=== PATIENT | female | born 1970 | race American Indian/Alaskan Native ===

== ENCOUNTER 2017-04-26 13:44 | Inpatient (IN) | payer MEDICARE, OTHER ==
[2017-04-26] MEDS ORDERED: Morphine 2 mg/ml ISec IVP STA (14:16)
[2017-04-26] MEDS ORDERED: Sodium Chloride 0.9% 1,000 ML IV STA (14:16)
--- NOTE | 2017-04-26 14:22 | ED PDOC ---
Arrival/HPI - General Historian: Patient EM Caveat: Uncooperative <Dariel Kuhn - Last Filed: 04/26/17 14:25> <Jason Nunes - Last Filed: 04/26/17 17:49> - General Chief Complaint: Abdominal Pain Time Seen by Provider: 04/26/17 13:51 - History of Present Illness Narrative History of Present Illness (Text): 04/26/17 14:19 This is a 47 year old male with PMHx Diabetes, H. pylori infections who presents complaining of intractable vomiting and chest pain. Patient states that both complaints started this morning. Patient has been vomiting yellowish green fluid. No blood in the vomit. Patient complaining of substernal chest pain without radiation. No radiation of pain. At this point, patient has refused to answer further questions. When the attending went to examine her, she admitted no further medical history and takes Janumet and Metformin at home. (Dariel Kuhn) Past Medical History - Provider Review Nursing Documentation Reviewed: Yes - Infectious Disease Hx of Infectious Diseases: None - Reproductive Menopause: Yes - Endocrine/Metabolic Hx Diabetes Mellitus Type 2: Yes - Musculoskeletal/Rheumatological Hx Musculoskeletal Disorders: No - Psychiatric Hx Substance Use: Yes - Anesthesia Hx Anesthesia: No <Dariel Kuhn - Last Filed: 04/26/17 14:25> Family/Social History - Physician Review Nursing Documentation Reviewed: Yes Family/Social History: Unknown Family HX Smoking Status: Unknown If Ever Smoked Hx Alcohol Use: Yes Frequency of alcohol use: Socially Hx Substance Use: Yes Substance used: weed <Dariel Kuhn - Last Filed: 04/26/17 14:25> Allergies/Home Meds <Dariel Kuhn - Last Filed: 04/26/17 14:25> <Jason Nunes - Last Filed: 04/26/17 17:49> Allergies/Adverse Reactions: Allergies No Known Allergies Allergy (Verified 04/26/17 13:58) Home Medications: Home Meds Medication Instructions Recorded Confirmed Sitagliptin Phos/Metformin HCl 1 each PO BID 04/26/17 04/26/17 [Janumet 50-1,000 mg Tablet] Review of Systems - Review of Systems Systems not reviewed;Unavailable: Uncooperative <Dariel Kuhn - Last Filed: 04/26/17 14:25> Physical Exam - Physical Exam Physical Exam Limitations: Uncooperative (refuses physical exam, but attending noted epigastric tenderness) Vital Signs Reviewed: Yes Temperature: Afebrile Blood Pressure: Normal Pulse: Regular Respiratory Rate: Normal Appearance: Positive for: Uncomfortable Pain Distress: Severe Mental Status: Positive for: Alert and Oriented X 3, Agitated <HattieWilfredkacie Mercedes - Last Filed: 04/26/17 14:25> Medical Decision Making <Dariel Kuhn - Last Filed: 04/26/17 14:25> <Jason Nunes - Last Filed: 04/26/17 17:49> ED Course and Treatment: 04/26/17 14:23 CBC, CMP, Amylase, Lipase, VBG w/ lactate Pepcid 20 mg IV Zofran 4 mg IV Morphine [address] abdomen/pelvis with IV contrast only (Dariel Kuhn) A 47 year old female with chest pain and non-bloody vomiting. In agreement with resident note, which includes further HPI details. Patient was seen and evaluated with resident, came up with plan and treatment together. 04/26/17 17:47 Patient with noted history; she is a poor historian and has been noncooperative , such as throwing a bed nelson with stool and urine onto the floor. Patient given antiemetic and fluids but still vomiting and will need further observation for intractable vomiting. Additionally, her CT a/p is showing a bladder lesion that may be a possible neoplasm - so she will need urologic workup for that. Case discussed with on-call physician, Dr. Aleman - will place on his service. (Jason Nunes) - Lab Interpretations Lab Results: 04/26/17 15:25 04/26/17 15:25 Lab Results 04/26/17 16:15: Urine Opiates Screen Negative, Urine Methadone Screen Negative, Ur Barbiturates Screen Negative, Ur Phencyclidine Scrn Negative, Ur Amphetamines Screen Negative, U Benzodiazepines Scrn Negative, U Oth Cocaine Metabols Negative, U Cannabinoids Screen Positive H 04/26/17 15:25: Sodium 140, Chloride 102, Potassium 3.8, Carbon Dioxide 27, Anion Gap 15, BUN 15, Creatinine 0.6, Est GFR ( Amer) > 60, Est GFR (Non- Af Amer) > 60, Random Glucose 280 H, Calcium 10.1, Total Bilirubin 0.6, AST 28, ALT 31, Alkaline Phosphatase 128, Total Protein 8.7 H, Albumin 4.7, Globulin 4.0 , Albumin/Globulin Ratio 1.2, Amylase 79, Lipase 205 04/26/17 15:25: WBC 7.9, RBC 4.79, Hgb 14.3, Hct 40.1, MCV 83.7, MCH 29.9, MCHC 35.7, RDW 12.8, Plt Count 238, MPV 10.2, Gran % 71.6 H, Lymph % (Auto) 20.3 L, Yell % (Auto) 5.9, Eos % (Auto) 2.1, Baso % (Auto) 0.1, Gran # 5.68, Lymph # 1.6 , Yell # 0.5, Eos # 0.2, Baso # 0.01 04/26/17 15:25: pO2 97 H, VBG pH 7.39, VBG pCO2 47.0, VBG HCO3 28.5 H, VBG Total CO2 29.9 H, VBG O2 Sat (Calc) 98.4 H, VBG Base Excess 2.8 H, VBG Potassium 6.0 H, Sodium 129.0 L, Chloride 102.0, Glucose 292 H, Lactate 1.7, FiO2 21.0, Venous Blood Potassium 6.0 H 04/26/17 14:43: Urine Color Light red, Urine Appearance Sl cloudy, Urine pH 7.0 , Ur Specific [place] 1.020, Urine Protein 100 H, Urine Glucose (UA) >=1000, Urine Ketones Negative, Urine Blood Large H, Urine Nitrate Negative, Urine Bilirubin Negative, Urine Urobilinogen 0.2, Ur Leukocyte Esterase Negative, Urine RBC Tntc, Urine WBC 0 - 2, Ur Epithelial Cells 0 - 2 - RAD Interpretation Radiology Orders: 04/26/17 14:18 ABD & PELVIS IV CONTRAST ONLY [CT] Stat - Medication Orders Current Medication Orders: Discontinued Medications Famotidine (Pepcid) 20 mg IVP STAT STA Stop: 04/26/17 14:17 Last Admin: 04/26/17 16:07 Dose: 20 mg Sodium Chloride (Sodium Chloride 0.9%) 1,000 mls @ 999 mls/hr IV .Q1H1M STA Stop: 04/26/17 15:16 Last Admin: 04/26/17 16:11 Dose: 999 mls/hr Iohexol (Omnipaque 350 100 Ml) Confirm Administered Dose 350 mg .ROUTE .STK-MED ONE Stop: 04/26/17 17:07 Metoclopramide HCl (Reglan) 10 mg IVP STAT STA Stop: 04/26/17 17:33 Morphine Sulfate (Morphine) 2 mg IVP STAT STA Stop: 04/26/17 14:17 Last Admin: 04/26/17 16:07 Dose: 2 mg Ondansetron HCl (Zofran Inj) 4 mg IVP STAT STA Stop: 04/26/17 14:17 Last Admin: 04/26/17 16:07 Dose: 4 mg - PA / HVAC ESTIMATOR / Resident Statement / has reviewed & agrees with the documentation as recorded. / has examined the patient and agrees with the treatment plan. <Jason Nunes - Last Filed: 04/26/17 17:49> Disposition/Present on Arrival - Present on Arrival History of DVT/PE: No History of Uncontrolled Diabetes: No Urinary Catheter: No History of Decub. Ulcer: No History Surgical Site Infection Following: None <Dariel Kuhn - Last Filed: 04/26/17 14:25> - Present on Arrival Any Indicators Present on Arrival: No - Disposition Have Diagnosis and Disposition been Completed?: Yes Disposition Time: 17:40 Patient Plan: Observation <Jason Nunes - Last Filed: 04/26/17 17:49> - Disposition Diagnosis: Intractable vomiting, Lesion of bladder Disposition: HOSPITALIZED Condition: FAIR Forms: [employer] (Yakut)
[2017-04-26 15:46] LABS: BASO # 0.01 K/mm3 (0.0-2.0); BASO % 0.1 % (0.0-3.0); EOS # 0.2 (0.0-0.7); EOS % 2.1 % (1.5-5.0); GRAN # 5.68 (1.4-6.5); GRAN % 71.6 % (50.0-68.0); HEMATOCRIT 40.1 % (36.0-48.0); LYMPH # 1.6 (1.2-3.4); LYMPH % 20.3 % (22.0-35.0); MEAN CELL VOLUME 83.7 fl (80.0-105.0); MEAN CORPUSCULAR HEMOGLOBIN 29.9 pg (25.0-35.0); MEAN CORPUSCULAR HGB CONC 35.7 g/dl (31.0-37.0); MEAN PLATELET VOLUME 10.2 fl (7.0-11.0); MONO # 0.5 (0.1-0.6); MONO % 5.9 % (1.0-6.0); RED CELL DISTRIBUTION WIDTH 12.8 % (11.5-14.5); WHITE BLOOD COUNT 7.9 10^3/ul (4.5-11.0)
[2017-04-26 15:48] LABS: VENOUS BLOOD GAS BASE EXCESS 2.8 mmol/L (0.0-2.0); VENOUS BLOOD PH 7.39 (7.32-7.43)
[2017-04-26 16:01] LABS: ALB/GLOB RATIO 1.2 (1.1-1.8); ALKALINE PHOSPHATASE 128 U/L (38-133); ALT/SGPT 31 U/L (7-56); AMYLASE 79 U/L (35-125); AST/SGOT 28 U/L (15-39); BILIRUBIN,TOTAL 0.6 mg/dL (0.2-1.3); BLOOD UREA NITROGEN 15 mg/dL (7-21); CALCIUM 10.1 mg/dL (8.4-10.5); CARBON DIOXIDE 27 mmol/L (21-33); CHLORIDE 102 mmol/L (98-107); GFR AFRICAN-AMERICAN > 60; GLUCOSE,RANDOM 280 mg/dL (70-110); LIPASE 205 U/L (23-300); POTASSIUM 3.8 mmol/L (3.6-5.0); SODIUM 140 mmol/L (132-148); TOTAL PROTEIN 8.7 g/dL (5.8-8.3)
[2017-04-26] MEDS ORDERED: Iohexol 350 MG/100 ML VIAL ONE (17:06)
[2017-04-26 17:22] LABS: URINE BILIRUBIN NEGATIVE (NEGATIVE); URINE BLOOD LARGE (NEGATIVE); URINE GLUCOSE (UA) >=1000 mg/dL (NEGATIVE); URINE KETONE NEGATIVE (NEGATIVE); URINE LEUKOCYTE ESTERASE NEGATIVE Leu/uL (NEGATIVE); URINE PROTEIN 100 mg/dL (<30 mg/dL); URINE UROBILINOGEN 0.2 E.U./dL (<1 E.U./dL)
--- NOTE | 2017-04-26 17:25 | CT ---
PROCEDURE: CT Abdomen and Pelvis with contrast HISTORY: severe abdominal pain COMPARISON: None. TECHNIQUE: Contrast dose: 100 mL Omnipaque 350 Radiation dose: Total exam DLP = 792.20 mGy-cm. This CT exam was performed using one or more of the following dose reduction techniques: Automated exposure control, adjustment of the mA and/or kV according to patient size, and/or use of iterative reconstruction technique. FINDINGS: LOWER THORAX: Unremarkable. LIVER: Normal size. Elongated right lobe, developmental variant. No mass. Smooth contour. No biliary dilatation. GALLBLADDER AND BILE DUCTS: No calcified gallstones. No mural thickening. PANCREAS: Unremarkable. No gross lesion or ductal dilatation. SPLEEN: Unremarkable. ADRENALS: Unremarkable. No mass. KIDNEYS AND URETERS: Left upper pole exophytic low-density renal mass, likely a cyst, measuring 1.6 cm. Evaluation is somewhat limited due to respiratory motion artifact. No right renal mass. No renal calculus or hydronephrosis. No ureteral calculus or hydroureter. VASCULATURE: Unremarkable. No aortic aneurysm. BOWEL: Sigmoid diverticulosis without evidence of diverticulitis. No bowel obstruction. APPENDIX: Normal appendix. PERITONEUM: Unremarkable. No free fluid. No free air. LYMPH NODES: Unremarkable. No enlarged lymph nodes. BLADDER: Bladder is significant for 1.4 cm high attenuation lesion along the right bladder wall. This may represent a bladder neoplasm. Evaluation with bladder ultrasound may be considered. Ultimately, cystoscopy may be required. REPRODUCTIVE: Normal uterus. Several nodular uterine calcifications are of uncertain significance. Possible small calcified fibroids. BONES: No acute fracture. Degenerative disc disease at L3-4. Schmorl's node inferior L2 vertebral endplate. OTHER FINDINGS: None. IMPRESSION: 1.4 cm high attenuation lesion along the right bladder wall. Rule out bladder neoplasm. Sigmoid diverticulosis without evidence of diverticulitis. Exophytic left upper pole renal cortical cyst. No other significant abnormality.
[2017-04-26 17:28] LABS: URINE APPEARANCE SL CLOUDY (CLEAR)
[2017-04-26 17:29] LABS: URINE COLOR LIGHT RED (YELLOW)
[2017-04-26 17:30] LABS: URINE RBC TNTC /hpf (0-2)
[2017-04-26 17:31] LABS: URINE EPITHELIAL CELLS 0 - 2 /hpf (0-5); URINE WBC 0 - 2 /hpf (0-6)
--- NOTE | 2017-04-26 18:53 | CARD ---
APPROVED REPORT EKG Measurement Heart [id number] OR 132P72 [id number] <Conclusion> Normal sinus rhythm Left axis deviation Cannot rule out Anterior infarct, age undetermined Abnormal ECG
[2017-04-26] MEDS ORDERED: Morphine 2 mg/ml ISec IVP PRN (18:54)
[2017-04-26] MEDS ORDERED: Sodium Chloride 0.9% 1,000 ML IV SCH (19:00)
--- NOTE | 2017-04-26 21:20 | CP.PCM.HP ---
History of Present Illness - History of Present Illness History of Present Illness: PGY-2 H&P 47 with PMH of DM adn H.pylori infections presented to ED with vomiting and abd pain. Patient states that the emesis began this morning and continued to vomit while in the ED. She denies bloody emesis. Patient states she also has pain is located in epigastric area and radiating throughout her abdomen. She denies previously similar symptoms. She denies any association with food. She also reports loose BM. She denies any fever, chills, sob, urinary symptoms. She denies any recent travel, sick contacts. PMH: DM, H. pylori infections PSH: dylon allgery: NKDA social hx: denies smoking, alcohol use, admits to [facility] use med: Janumet Present on Admission - Present on Admission Any Indicators Present on Admission: No History of DVT/PE: No History of Uncontrolled Diabetes: No Urinary Catheter: No Decubitus Ulcer Present: No Review of Systems - Constitutional Constitutional: absent: Chills, Fever, Weakness - EENT Eyes: absent: Change in Vision, Loss of Vision Nose/Mouth/Throat: absent: Nasal Congestion, Nasal Discharge, Sore Throat - Cardiovascular Cardiovascular: absent: Chest Pain, Dyspnea, Edema, Palpitations, Paroxysmal Nocturnal Dyspnea - Respiratory Respiratory: absent: Cough, Dyspnea, Hemoptysis, Wheezing - Gastrointestinal Gastrointestinal: Abdominal Pain, Loose Stools, Nausea, Vomiting. absent: Constipation - Genitourinary Genitourinary: absent: Change in Urinary Stream, Difficulty Urinating, Dysuria, Hematuria - Musculoskeletal Musculoskeletal: absent: Myalgias, Numbness, Stiffness, Tingling - Integumentary Integumentary: absent: Skin Ulcer, Swelling, Wounds - Neurological Neurological: absent: Dizziness, Numbness, Loss of Vision, Syncope - Endocrine Endocrine: absent: Polydipsia, Polyphagia, Polyuria - Hematologic/Lymphatic Hematologic: absent: Easy Bleeding, Easy Bruising Past Patient History - Infectious Disease Hx of Infectious Diseases: None - Past Social History Smoking Status: Unknown If Ever Smoked - ENDOCRINE/METABOLIC Hx Diabetes Mellitus Type 2: Yes - MUSCULOSKELETAL/RHEUMATOLOGICAL Hx Musculoskeletal Disorders: No - PSYCHIATRIC Hx Substance Use: Yes - ANESTHESIA Hx Anesthesia: No Meds Allergies/Adverse Reactions: Allergies Allergy/AdvReac Type Severity Reaction Status Date / Time No Known Allergies Allergy Verified 04/26/17 13:58 Physical Exam - Constitutional Appears: Well, No Acute Distress - Head Exam Head Exam: ATRAUMATIC, NORMAL INSPECTION, NORMOCEPHALIC - Eye Exam Eye Exam: Normal appearance. absent: Conjunctival injection, Scleral icterus - ENT Exam ENT Exam: Mucous Membranes Moist - Respiratory Exam Respiratory Exam: Clear to Auscultation Bilateral, NORMAL BREATHING PATTERN. absent: Rales, Rhonchi, Wheezes, Respiratory Distress - Cardiovascular Exam Cardiovascular Exam: REGULAR RHYTHM, +S1, +S2. absent: Tachycardia, Systolic Murmur - GI/Abdominal Exam GI & Abdominal Exam: Normal Bowel Sounds, Soft, Tenderness. absent: Distended, Firm, Guarding - Extremities Exam Extremities exam: Positive for: normal inspection. Negative for: pedal edema, tenderness - Back Exam Back exam: NORMAL INSPECTION. absent: CVA tenderness (L), CVA tenderness (R), paraspinal tenderness, vertebral tenderness - Neurological Exam Neurological exam: Alert, Oriented x3 - Skin Skin Exam: Dry, Intact, Normal Color, Warm Results - Vital Signs Recent Vital Signs: Last Vital Signs Temp 97.6 F 04/26/17 13:45 Pulse 66 04/26/17 18:23 Resp 18 04/26/17 18:23 BP 124/68 04/26/17 18:23 Pulse Ox 100 04/26/17 18:23 - Labs Result Diagrams: 04/26/17 15:25 04/26/17 15:25 Assessment & Plan - Assessment and Plan (Free Text) Assessment: 47 with PMH of DM adn H.pylori infections presented intractable vomiting and abd pain. Plan: 1. intractable vomiting and abd pain -possible enteritis - CT abd impression: 1.4 cm high attenuation lesion along the right bladder wall. Sigmoid diverticulosis without evidence of diverticulitis. Exophytic left upper pole renal cortical cyst. - zofran prn - pain control - abx flagyl - NPO - IVF - protonix for GI ppx 2. bladder wall mass - CT abd impression: 1.4 cm high attenuation lesion along the right bladder wall. Sigmoid diverticulosis without evidence of diverticulitis. - UA showed RBCs and large blood - urine culture - consulted urology, Dr. Schwartz 3. DM - hold home med - ISSS - finger checks ACHS
[2017-04-26] MEDS: Insulin Reg-LOW-Coverage SC SCH (23:00)
[2017-04-27] MEDS: Pantoprazole 40 mg EC Tab PO SCH (05:51)
[2017-04-27] MEDS ORDERED: metroNIDAZOLE IV 500 mg/100 ml 500 MG/100 ML BAG IVPB SCH (06:00)
[2017-04-27 07:09] LABS: BASO # 0.02 K/mm3 (0.0-2.0); BASO % 0.2 % (0.0-3.0); GRAN # 9.47 (1.4-6.5); GRAN % 84.7 % (50.0-68.0); HEMATOCRIT 39.9 % (36.0-48.0); LYMPH # 1.3 (1.2-3.4); LYMPH % 11.4 % (22.0-35.0); MEAN CORPUSCULAR HEMOGLOBIN 28.7 pg (25.0-35.0); MEAN CORPUSCULAR HGB CONC 34.6 g/dl (31.0-37.0); MEAN PLATELET VOLUME 10.2 fl (7.0-11.0); MONO # 0.4 (0.1-0.6); MONO % 3.7 % (1.0-6.0); WHITE BLOOD COUNT 11.2 10^3/ul (4.5-11.0)
[2017-04-27 07:13] LABS: ALB/GLOB RATIO 1.1 (1.1-1.8); ALKALINE PHOSPHATASE 119 U/L (38-133); ALT/SGPT 37 U/L (7-56); AST/SGOT 26 U/L (15-39); BILIRUBIN,TOTAL 0.6 mg/dL (0.2-1.3); BLOOD UREA NITROGEN 13 mg/dL (7-21); CALCIUM 9.6 mg/dL (8.4-10.5); CARBON DIOXIDE 28 mmol/L (21-33); CHLORIDE 101 mmol/L (95-110); GFR AFRICAN-AMERICAN > 60; GLUCOSE,RANDOM 288 mg/dL (70-110); POTASSIUM 3.8 mmol/L (3.6-5.0); SODIUM 140 mmol/L (132-148); TOTAL PROTEIN 8.5 g/dL (5.8-8.3)
[2017-04-27 07:14] LABS: INR 0.95 (0.93-1.08); PARTIAL THROMBOPLASTIN TIME 28.7 Seconds (23.7-30.8)
[2017-04-27] MEDS ORDERED: Enoxaparin 40 mg Syringe SC SCH (10:00)
[2017-04-27 11:01] LABS: TROPONIN I < 0.01 ng/mL
[2017-04-27] MEDS: Insulin Reg-LOW-Coverage SC SCH ×4 (11:05→21:10)
--- NOTE | 2017-04-27 12:27 | CARD ---
APPROVED REPORT EKG Measurement Heart [id number] OR [id number] [id number] <Conclusion> Normal sinus rhythm Possible Left atrial enlargement Left axis deviation Nonspecific ST abnormality Abnormal ECG
--- NOTE | 2017-04-27 13:46 | CP.PCM.PN ---
Subjective - Date & Time of Evaluation Date of Evaluation: 04/27/17 Time of Evaluation: 10:55 - Subjective Subjective: Patient seen and examined at bedside. Patient was restless in bed. C/o of mild abdominal discomfort which has improved since being admitted. Denies f/c/cp/sob/ n/v/diarrhea/constipation/urinary symptoms. Objective - Vital Signs/Intake and Output Vital Signs (last 24 hours): Temp Pulse Resp BP Pulse Ox 98 F 72 18 196/104 H 100 04/26/17 21:26 04/27/17 13:17 04/27/17 12:35 04/27/17 13:17 04/26/17 18:23 Intake and Output: 04/27/17 04/27/17 06:59 18:59 Intake Total 600 Output Total 1100 Balance -500 - Medications Medications: Current Medications Enoxaparin Sodium (Lovenox) 40 mg SC DAILY [facility] PRN Reason: Protocol Last Admin: 04/27/17 11:14 Dose: 40 mg Sodium Chloride (Sodium Chloride 0.9%) 1,000 mls @ 100 mls/hr IV .Q10H [facility] Last Admin: 04/26/17 20:22 Dose: 100 mls/hr Insulin Human Regular (Humulin R Low) 0 units SC ACHS CHRISTY PRN Reason: Protocol Last Admin: 04/27/17 13:29 Dose: Not Given Metronidazole (Flagyl) 500 mg PO Q8 [facility] Last Admin: 04/27/17 13:25 Dose: 500 mg Morphine Sulfate (Morphine) 1 mg IVP Q4 PRN PRN Reason: Pain, severe (8-10) Ondansetron HCl (Zofran Inj) 4 mg IVP Q6 PRN PRN Reason: Nausea/Vomiting Last Admin: 04/27/17 00:33 Dose: 4 mg Pantoprazole Sodium (Protonix Ec Tab) 40 mg PO 0600 [facility] Last Admin: 04/27/17 05:51 Dose: 40 mg - Labs Labs: 04/27/17 06:00 04/27/17 06:00 PT 10.3 Seconds (9.9-11.8) 04/27/17 06:00 INR 0.95 (0.93-1.08) 04/27/17 06:00 APTT 28.7 Seconds (23.7-30.8) 04/27/17 06:00 - Additional Findings Additional findings: - Constitutional Appears: agitated - Head Exam Head Exam: ATRAUMATIC, NORMAL INSPECTION, NORMOCEPHALIC - Eye Exam Eye Exam: Pin point pupils bilaterally; absent: Conjunctival injection, Scleral icterus - ENT Exam ENT Exam: Mucous Membranes Moist - Respiratory Exam Respiratory Exam: Clear to Auscultation Bilateral, NORMAL BREATHING PATTERN. absent: Rales, Rhonchi, Wheezes, Respiratory Distress - Cardiovascular Exam Cardiovascular Exam: REGULAR RHYTHM, +S1, +S2. absent: Tachycardia, Systolic Murmur - GI/Abdominal Exam GI & Abdominal Exam: Normal Bowel Sounds, Soft, Tenderness. absent: Distended, Firm, Guarding - Extremities Exam Extremities exam: Positive for: normal inspection. Negative for: pedal edema, tenderness - Back Exam Back exam: NORMAL INSPECTION. absent: CVA tenderness (L), CVA tenderness (R), paraspinal tenderness, vertebral tenderness - Neurological Exam Neurological exam: Alert, Oriented x3 - Skin Skin Exam: Dry, Intact, Normal Color, Warmg Assessment and Plan - Assessment and Plan (Free Text) Plan: 47 with PMH of DM and H.pylori infections presented intractable vomiting and abd pain. 1. Intractable vomiting and abd pain details- CT abd impression: 1.4 cm high attenuation lesion along the right bladder wall. Sigmoid diverticulosis without evidence of diverticulitis. Exophytic left upper pole renal cortical cyst. - zofran prn - pain control - abx flagyl - NPO - IVF - protonix for GI ppx 2. Bladder wall mass - CT abd impression: 1.4 cm high attenuation lesion along the right bladder wall. Sigmoid diverticulosis without evidence of diverticulitis. - urology, Dr. Schwartz, is following patient--cystoscopy planned for tuesday 3. Agitation - PRN ativan - psych consult 4. DM - hold home med - ISS - finger checks ACHS 5. Ppx - lovenox - protonix patient case discussed with and plan approved by Dr. Zavala.
--- NOTE | 2017-04-27 15:39 | US ---
PROCEDURE: URINARY BLADDER ULTRASOUND EXAMINATION HISTORY: bladder mass COMPARISON: Abdomen and pelvis CT examination 04/26/2017 TECHNIQUE: Transabdominal pelvic ultrasound was performed for evaluation of urinary bladder lesion. FINDINGS: Urinary bladder appears adequately distended. There is a is small ovoid lesion related to the base of the urinary bladder measuring 1.4 x 1.7 x 1.6 cm with questionable vascularity at its base although this may represent blood flow within the urinary bladder wall. The lesion is predominantly hypovascular. No urolithiasis appreciated in the urinary bladder the remainder the urinary bladder wall appears unremarkable. The distended urinary bladder measures 8.1 x 6.2 x 7.3 cm, or 192.2 cc. IMPRESSION: 1.7 cm mass is seen at the base the urinary bladder which is predominate hypovascular. Some color Doppler blood flow was appreciated at the inferior base which may be in the wall and not in the nodule. No findings suspicious for polyp or potential malignant neoplasm. Tissue diagnosis is advised.
--- NOTE | 2017-04-28 00:27 | CON ---
DATE: 04/27/2017 GENITOURINARY CONSULTATION CHIEF COMPLAINT: Nausea and vomiting. HISTORY OF PRESENT ILLNESS: This is a 47-year-old female who was seen this morning in her room at [facility]. The patient was admitted for persistent nausea and vomiting. She was having some epigastric pain. She has a history of H. pylori infections. During her admission, the patient had a CT scan showing a bladder mass. A consultation was requested regarding her bladder mass. The patient denies any current dysuria, urinary frequency, urgency or gross hematuria. She denies any flank pain or history of stones. PAST MEDICAL HISTORY: Significant for diabetes and H. pylori infections. PAST SURGICAL HISTORY: Denies. MEDICATIONS: On Janumet at home. Currently on Ativan, Flagyl, insulin coverage, Lovenox, morphine, Protonix and Zofran. ALLERGIES: NO KNOWN DRUG ALLERGIES. FAMILY HISTORY: Noncontributory to her present illness. SOCIAL HISTORY: No cigarette smoking. Does have social ETOH use. REVIEW OF SYSTEMS: Twelve-point review of systems was obtained. Positives as per the history of present illness. No further vomiting. Does complain of feeling somewhat weak and tired. No prior urologic history. PHYSICAL EXAMINATION GENERAL: The patient is awake, but somewhat somnolent. VITAL SIGNS: She is afebrile, temp of 98.1; BP elevated, 196/100; pulse was 88 and respirations 20. NECK: Supple. There is no adenopathy. CHEST: Reveals normal inspiratory effort. CARDIAC: Showed positive S1 and S2. There is no peripheral edema. ABDOMEN: Soft, nontender and nondistended. There is no hepatosplenomegaly. There is no costovertebral angle tenderness. EXTREMITIES: There is no cyanosis or edema noted. LABORATORY DATA: WBC count 11.2, hemoglobin 13.8 and platelet count 304. GFR was greater than 60. Urinalysis showed large blood, too numerous to count rbc's, 0-2 wbc's, positive for glucose, negative for nitrites and positive for protein. On radiologic exam, the patient had a CT scan of the abdomen and pelvis, which showed there is a 1.4 cm high-attenuation lesion on the right bladder wall, which may represent a bladder neoplasm. Kidneys showed an exophytic low-density mass, likely a cyst measuring 1.6 cm. Evaluation was limited due to respiratory artifact. No stones or hydronephrosis was noted. There was sigmoid diverticulosis without evidence of diverticulitis. IMPRESSION AND PLAN: This is a 47-year-old female admitted with nausea and persistent vomiting and history of Helicobacter pylori infection. Urologically, the patient has no voiding symptoms. She does have significant hematuria and there was a question of a mass in her bladder. The plan would be the patient should continue medical treatment for her elevated blood pressure as well as for her gastrointestinal symptoms which appear to have improved. Urologically, I would plan on a cystoscopy with possible biopsy or bladder tumor resection for Tuesday morning if we can get the patient medically stable by that point. I would hold any blood thinners, i.e., Lovenox, for an appropriate time period prior to her surgery. Thank you for allowing me to participate in the care of this patient. I will discuss her care with her medical attending, Dr. Stevenson Aleman. John Schwartz MD
[2017-04-28] MEDS: Pantoprazole 40 mg EC Tab PO SCH (05:05)
[2017-04-28 07:34] LABS: ALB/GLOB RATIO 1.1 (1.1-1.8); ALKALINE PHOSPHATASE 125 U/L (38-133); ALT/SGPT 30 U/L (7-56); AST/SGOT 37 U/L (15-39); BILIRUBIN,TOTAL 0.8 mg/dL (0.2-1.3); BLOOD UREA NITROGEN 19 mg/dL (7-21); CALCIUM 9.7 mg/dL (8.4-10.5); CARBON DIOXIDE 27 mmol/L (21-33); CHLORIDE 99 mmol/L (98-107); GFR AFRICAN-AMERICAN > 60; POTASSIUM 4.7 mmol/L (3.6-5.0); SODIUM 138 mmol/L (132-148); TOTAL PROTEIN 8.1 g/dL (5.8-8.3)
[2017-04-28 07:45] LABS: GLUCOSE,RANDOM 301 mg/dL (70-110)
[2017-04-28] MEDS: Insulin Reg-LOW-Coverage SC SCH ×2 (08:00→11:46)
[2017-04-28 09:26] LABS: BASO # 0.01 K/mm3 (0.0-2.0); BASO % 0.1 % (0.0-3.0); EOS % 0.2 % (1.5-5.0); GRAN # 7.8 (1.4-6.5); GRAN % 77.5 % (50.0-68.0); HEMATOCRIT 42.2 % (36.0-48.0); LYMPH # 1.5 (1.2-3.4); LYMPH % 15.3 % (22.0-35.0); MEAN CELL VOLUME 84.1 fl (80.0-105.0); MEAN CORPUSCULAR HEMOGLOBIN 29.1 pg (25.0-35.0); MEAN CORPUSCULAR HGB CONC 34.6 g/dl (31.0-37.0); MEAN PLATELET VOLUME 10.4 fl (7.0-11.0); MONO # 0.7 (0.1-0.6); MONO % 6.9 % (1.0-6.0); RED CELL DISTRIBUTION WIDTH 13.2 % (11.5-14.5); WHITE BLOOD COUNT 10.1 10^3/ul (4.5-11.0)
--- NOTE | 2017-04-28 10:35 | CT ---
PROCEDURE: CT HEAD WITHOUT CONTRAST. HISTORY: ams COMPARISON: None available. TECHNIQUE: Axial computed tomography images were obtained through the head/brain without intravenous contrast. Radiation dose: Total exam DLP = 690.82 mGy-cm. This CT exam was performed using one or more of the following dose reduction techniques: Automated exposure control, adjustment of the mA and/or kV according to patient size, and/or use of iterative reconstruction technique. FINDINGS: HEMORRHAGE: No intracranial hemorrhage. BRAIN: No mass effect or edema. No atrophy or chronic microvascular ischemic changes. VENTRICLES: Unremarkable. No hydrocephalus. CALVARIUM: Unremarkable. PARANASAL SINUSES: Unremarkable as visualized. No significant inflammatory changes. MASTOID AIR CELLS: Unremarkable as visualized. No inflammatory changes. OTHER FINDINGS: None. IMPRESSION: Normal CT of the Head. No intracranial mass, hemorrhage or evidence of acute infarct.
--- NOTE | 2017-04-28 13:31 | CP.PCM.PN ---
Subjective - Date & Time of Evaluation Date of Evaluation: 04/28/17 Time of Evaluation: 09:25 - Subjective Subjective: Patient seen and examined at bedside. Patient awake and answering questions appropriately. States mild abdominal discomfort has improved since being admitted. Patient inquiring about blood pressure elevation. Patient education provided. Denies f/c/cp/sob/n/v/diarrhea/constipation/urinary symptoms. Objective - Vital Signs/Intake and Output Vital Signs (last 24 hours): Temp Pulse Resp BP Pulse Ox 97 F L 104 H 18 153/89 H 100 04/28/17 07:00 04/28/17 08:50 04/28/17 07:00 04/28/17 08:50 04/28/17 07:00 Intake and Output: 04/28/17 04/28/17 06:59 18:59 Intake Total 240 120 Balance 240 120 - Medications Medications: Current Medications Amlodipine Besylate (Norvasc) 5 mg PO DAILY [facility] Enoxaparin Sodium (Lovenox) 40 mg SC DAILY [facility] PRN Reason: Protocol Last Admin: 04/27/17 11:14 Dose: 40 mg Hydralazine HCl (Apresoline) 25 mg PO Q8H PRN PRN Reason: SBP > 180 Sodium Chloride (Sodium Chloride 0.9%) 1,000 mls @ 100 mls/hr IV .Q10H [facility] Last Admin: 04/26/17 20:22 Dose: 100 mls/hr Insulin Human Regular (Humulin R Low) 0 units SC ACHS [facility] PRN Reason: Protocol Last Admin: 04/28/17 11:46 Dose: 5 units Lorazepam (Ativan) 0.5 mg IVP Q6 PRN; Protocol PRN Reason: Agitation Last Admin: 04/28/17 08:56 Dose: 0.5 mg Lorazepam (Ativan) 0.5 mg PO TID PRN; Protocol PRN Reason: Agitation Last Admin: 04/28/17 05:04 Dose: 0.5 mg Metronidazole (Flagyl) 500 mg PO Q8 [facility] Last Admin: 04/28/17 06:36 Dose: Not Given Morphine Sulfate (Morphine) 1 mg IVP Q4 PRN PRN Reason: Pain, severe (8-10) Ondansetron HCl (Zofran Inj) 4 mg IVP Q6 PRN PRN Reason: Nausea/Vomiting Last Admin: 04/27/17 21:36 Dose: 4 mg Pantoprazole Sodium (Protonix Ec Tab) 40 mg PO 0600 [facility] Last Admin: 04/28/17 05:05 Dose: 40 mg - Labs Labs: 04/28/17 07:00 04/28/17 07:00 PT 10.8 Seconds (9.9-11.8) 04/28/17 10:30 INR 1.00 (0.93-1.08) 04/28/17 10:30 APTT 28.7 Seconds (23.7-30.8) 04/27/17 06:00 - Additional Findings Additional findings: - Constitutional Appears: NAD - Head Exam Head Exam: ATRAUMATIC, NORMAL INSPECTION, NORMOCEPHALIC - Eye Exam Eye Exam: absent: Conjunctival injection, Scleral icterus - ENT Exam ENT Exam: Mucous Membranes Moist - Respiratory Exam Respiratory Exam: Clear to Auscultation Bilateral, NORMAL BREATHING PATTERN. absent: Rales, Rhonchi, Wheezes, Respiratory Distress - Cardiovascular Exam Cardiovascular Exam: REGULAR RHYTHM, +S1, +S2. absent: Tachycardia, Systolic Murmur - GI/Abdominal Exam GI & Abdominal Exam: Normal Bowel Sounds, Soft, Tenderness. absent: Distended, Firm, Guarding - Extremities Exam Extremities exam: Positive for: normal inspection. Negative for: pedal edema, tenderness - Back Exam Back exam: NORMAL INSPECTION. absent: CVA tenderness (L), CVA tenderness (R), paraspinal tenderness, vertebral tenderness - Neurological Exam Neurological exam: Alert, Oriented x3 - Skin Skin Exam: Dry, Intact, Normal Color, Warmg Assessment and Plan - Assessment and Plan (Free Text) Assessment: 47 with PMH of DM and H.pylori infections presented intractable vomiting and abd pain. 1. Intractable vomiting and abd pain details- CT abd impression: 1.4 cm high attenuation lesion along the right bladder wall. Sigmoid diverticulosis without evidence of diverticulitis. Exophytic left upper pole renal cortical cyst. - zofran prn - pain control - abx flagyl - NPO - IVF - protonix for GI ppx - awaiting Beta HCG 2. Bladder wall mass, Renal Cyst - CT abd impression: 1.4 cm high attenuation lesion along the right bladder wall. Sigmoid diverticulosis without evidence of diverticulitis. - urology, Dr. Schwartz, is following patient--cystoscopy planned for lydia 3. Agitation - PRN ativan - psych consult- appreciate input 4. DM - hold home med - ISS- increased from low to medium - finger checks ACHS 5. Htn - monitor closely - started amlodipine - started PRN hydralazine - find secondary causes- renal artery duplex, TSH 6. Ppx - lovenox - protonix patient case discussed with and plan approved by Dr. Zavala.
[2017-04-28] MEDS: Insulin Lispro (humaLOG) MEDIUM Coverage SC SCH ×2 (17:00→21:21)
--- NOTE | 2017-04-28 20:30 | US ---
PROCEDURE: Bilateral renal artery duplex ultrasound. CLINICAL HISTORY: Renal artery stenosis. Uncontrolled hypertension. Evaluate for renovascular hypertension. PHYSICIAN(S): Niko Smart M.D. TECHNIQUE: Duplex sonography with color-flow Doppler was used to evaluate the visualized segments of the main renal arteries. The patient was evaluated in a fasting state. Imaging in a supine and decubitus position was performed. Limited evaluation of the arcuate waveforms and resistive indices were performed. FINDINGS: The overall quality of the study is adequate. The kidneys are normal in size, shape, and location. The right kidney measures 10.5cm in length and the left kidney measures 10.8cm in length. No solid renal masses, abnormal calcifications, or hydronephrosis is seen. The main right renal artery somewhat tortuous but fairly well visualized from the aorta to the hilum. The peak systolic velocity in the right main renal artery is 108 cm/sec. This is consistent with a 0 to 49% stenosis in the main right renal artery. The arcuate waveforms are normal. The resistive index is normal. The main left renal artery is also fairly well seen from its origin to the renal hilum. The peak systolic velocity in the main left renal artery is 99cm/sec. This corresponds to a 0 to 49% stenosis in the main left renal artery. The arcuate waveforms and resistive indices are normal. IMPRESSION: 1. The main renal arteries are fairly well visualized. 2. No sonographically significant stenosis is identified. 3. The kidneys are normal and symmetric in size. There are no solid renal masses, abnormal calcifications or hydronephrosis noted.
--- NOTE | 2017-04-29 01:04 | CON ---
DATE: HISTORY OF PRESENT ILLNESS: The patient is a 47-year-old female, who was admitted on the medical site for evaluation of vomiting and chest pain. Psych consult was called for evaluation of altered mental status. This group underwriter attempted to speak with the patient and patient is status post medication of Ativan, was not able to hold interview. The patient was opening her eyes and falling asleep, started to snore within few seconds. There is no option to have meaningful conversation with the patient at present moment. Discussed with the nursing staff, as per nursing staff, the patient was appeared to be anxious within few seconds after waking up. The patient did not have any visual disturbances. This group underwriter reviewed previous history. The patient has history of mental illness, depression, anxiety, most likely psychosis due to drug abuse. The patient also has history of cocaine abuse and history of psychiatric admissions into the [facility], which took place in August 2016. The patient signed against medical advice back then. The patient has history of cocaine abuse, patient also has possible benzodiazepines abuse, patient also has history of psychosis, was on haloperidol 5 mg 3 times a day. No other information is available. PHYSICAL EXAMINATION VITAL SIGNS: Temperature 98.7, pulse 113, blood pressure 144/97, respirations 20, saturation is 92. MEDICATIONS: Reviewed. The patient is on Norvasc, Lovenox, hydralazine, Humalog, Zestril, Ativan 0.5 mg IV push q. 6 hours as needed for agitation, Ativan 0.5 mg 3 times a day as needed for agitation p.o., Flagyl, morphine, Zofran, Protonix, and sodium chloride. LABORATORY DATA: Reviewed. The patient's urine drug screen was positive for Cannabis. The patient has leukocytosis at the time of admission. Chemistry blood sugar was elevated 301. Urinalysis showed blood large, but no signs of infection. MENTAL STATUS EXAMINATION: As this group underwriter described above, the patient was deeply sleeping, no option to have meaningful conversation. Head CT scan was done today, patient has normal CT scan of the head, no acute infarct. Patient also has electrocardiogram, which showed normal sinus rhythm, also patient had bladder ultrasound, which showed 1.7 cm mass and it was on the base of urinary bladder, which is predominant hypervascular and it was recommended biopsy. Abdominal CT scan also was done yesterday 1.4 cm lesion over the right bladder wall. IMPRESSION: Altered mental status of unknown etiology. This group underwriter has concern, consider patient has history of cocaine abuse and benzodiazepine abuse. This group underwriter cannot exclude alcohol abuse as well, so monitor vital signs closely, try to obtain collateral information from the family. The patient is on benzodiazepines and patient might benefit from increase dose of benzodiazepines if patient has history of alcohol abuse and if patient has withdrawal symptoms from the alcohol or benzodiazepines, urine drug screen was negative for benzodiazepines. The patient also has history of being on haloperidol and psychotic symptoms, so put orders for haloperidol as needed for agitation and psychosis. We will followup on this patient tomorrow. Should you have any questions give me call back. Thank you very much for letting me to participate in care of your patient. Naida Romo MD
[2017-04-29] MEDS: Pantoprazole 40 mg EC Tab PO SCH (05:05)
[2017-04-29 07:23] LABS: BASO # 0.01 K/mm3 (0.0-2.0); BASO % 0.1 % (0.0-3.0); EOS % 0.3 % (1.5-5.0); GRAN # 6.46 (1.4-6.5); GRAN % 71.3 % (50.0-68.0); HEMATOCRIT 45.4 % (36.0-48.0); LYMPH # 1.8 (1.2-3.4); LYMPH % 19.9 % (22.0-35.0); MEAN CELL VOLUME 84.2 fl (80.0-105.0); MEAN CORPUSCULAR HEMOGLOBIN 29.3 pg (25.0-35.0); MEAN CORPUSCULAR HGB CONC 34.8 g/dl (31.0-37.0); MEAN PLATELET VOLUME 10.3 fl (7.0-11.0); MONO # 0.8 (0.1-0.6); MONO % 8.4 % (1.0-6.0); RED CELL DISTRIBUTION WIDTH 13.3 % (11.5-14.5); WHITE BLOOD COUNT 9.1 10^3/ul (4.5-11.0)
[2017-04-29 07:34] LABS: ALB/GLOB RATIO 1.1 (1.1-1.8); ALKALINE PHOSPHATASE 121 U/L (38-126); ALT/SGPT 36 U/L (7-56); AST/SGOT 32 U/L (14-36); BILIRUBIN,TOTAL 0.6 mg/dL (0.2-1.3); BLOOD UREA NITROGEN 23 mg/dL (7-21); CALCIUM 9.8 mg/dL (8.4-10.5); CARBON DIOXIDE 27 mmol/L (21-33); CHLORIDE 99 mmol/L (98-107); GFR AFRICAN-AMERICAN > 60; GLUCOSE,RANDOM 296 mg/dL (70-110); POTASSIUM 3.8 mmol/L (3.6-5.0); SODIUM 136 mmol/L (132-148); TOTAL PROTEIN 7.6 g/dL (5.8-8.3)
[2017-04-29] MEDS: Insulin Lispro (humaLOG) MEDIUM Coverage SC SCH ×4 (08:30→23:00)
[2017-04-29] MEDS ORDERED: Propofol 10 mg/ml Inj (20 ML) ONE (12:02)
[2017-04-29] MEDS ORDERED: cefTRIAXone (Rocephin) 1 gm Inj ONE (12:03)
--- NOTE | 2017-04-29 12:21 | CP.PCM.PN ---
<Jayson Parham - Last Filed: 04/29/17 12:21> Subjective - Date & Time of Evaluation Date of Evaluation: 04/29/17 Time of Evaluation: 10:00 - Subjective Subjective: Patient seen and examined at bedside. States abdominal pain has improved since admission. Offers no new complaints at this time. Denies f/c/cp/sob/n/v/diarrhea /constipation/urinary symptoms. Objective - Vital Signs/Intake and Output Vital Signs (last 24 hours): Temp Pulse Resp BP Pulse Ox 98.5 F 118 H 20 149/91 H 98 04/29/17 10:50 04/29/17 10:50 04/29/17 10:50 04/29/17 10:50 04/29/17 10:50 Intake and Output: 04/29/17 04/29/17 06:59 18:59 Intake Total 120 0 Balance 120 0 - Medications Medications: Current Medications Amlodipine Besylate (Norvasc) 5 mg PO DAILY [facility] Enoxaparin Sodium (Lovenox) 40 mg SC DAILY [facility] PRN Reason: Protocol Last Admin: 04/27/17 11:14 Dose: 40 mg Haloperidol (Haldol) 5 mg PO BID PRN; Protocol PRN Reason: agitation/psychosis Hydralazine HCl (Apresoline) 25 mg PO Q8H PRN PRN Reason: SBP > 180 Sodium Chloride (Sodium Chloride 0.9%) 1,000 mls @ 100 mls/hr IV .Q10H [facility] Last Admin: 04/26/17 20:22 Dose: 100 mls/hr Insulin Human Lispro (Humalog Med) 0 units SC ACHS [facility] PRN Reason: Protocol Last Admin: 04/29/17 08:30 Dose: 5 units Lisinopril (Zestril) 10 mg PO DAILY [facility] Lorazepam (Ativan) 0.5 mg IVP Q6 PRN; Protocol PRN Reason: Agitation Last Admin: 04/29/17 07:28 Dose: 0.5 mg Lorazepam (Ativan) 0.5 mg PO TID PRN; Protocol PRN Reason: Agitation Last Admin: 04/28/17 05:04 Dose: 0.5 mg Metronidazole (Flagyl) 500 mg PO Q8 [facility] Last Admin: 04/29/17 05:05 Dose: Not Given Morphine Sulfate (Morphine) 1 mg IVP Q4 PRN PRN Reason: Pain, severe (8-10) Ondansetron HCl (Zofran Inj) 4 mg IVP Q6 PRN PRN Reason: Nausea/Vomiting Last Admin: 04/28/17 20:01 Dose: 4 mg Pantoprazole Sodium (Protonix Ec Tab) 40 mg PO 0600 [facility] Last Admin: 04/29/17 05:05 Dose: Not Given - Labs Labs: 04/29/17 06:45 04/29/17 06:45 PT 10.8 Seconds (9.9-11.8) 04/28/17 10:30 INR 1.00 (0.93-1.08) 04/28/17 10:30 APTT 28.7 Seconds (23.7-30.8) 04/27/17 06:00 - Additional Findings Additional findings: - Additional Findings Additional findings: - Constitutional Appears: NAD - Head Exam Head Exam: ATRAUMATIC, NORMAL INSPECTION, NORMOCEPHALIC - Eye Exam Eye Exam: absent: Conjunctival injection, Scleral icterus - ENT Exam ENT Exam: Mucous Membranes Moist - Respiratory Exam Respiratory Exam: Clear to Auscultation Bilateral, NORMAL BREATHING PATTERN. absent: Rales, Rhonchi, Wheezes, Respiratory Distress - Cardiovascular Exam Cardiovascular Exam: REGULAR RHYTHM, +S1, +S2. absent: Tachycardia, Systolic Murmur - GI/Abdominal Exam GI & Abdominal Exam: Normal Bowel Sounds, Soft, Tenderness. absent: Distended, Firm, Guarding - Extremities Exam Extremities exam: Positive for: normal inspection. Negative for: pedal edema, tenderness - Back Exam Back exam: NORMAL INSPECTION. absent: CVA tenderness (L), CVA tenderness (R), paraspinal tenderness, vertebral tenderness - Neurological Exam Neurological exam: Alert, Oriented x3 - Skin Skin Exam: Dry, Intact, Normal Color, Warmg Assessment and Plan - Assessment and Plan (Free Text) Assessment: 47 with PMH of DM and H.pylori infections presented intractable vomiting and abd pain. 1. Intractable vomiting and abd pain details- CT abd impression: 1.4 cm high attenuation lesion along the right bladder wall. Sigmoid diverticulosis without evidence of diverticulitis. Exophytic left upper pole renal cortical cyst. - zofran prn - pain control - abx flagyl - NPO - IVF - protonix for GI ppx - Beta HCG- negative 2. Bladder wall mass, Renal Cyst - CT abd impression: 1.4 cm high attenuation lesion along the right bladder wall. Sigmoid diverticulosis without evidence of diverticulitis. - urology, Dr. Schwartz, is following patient--cystoscopy planned for today, await recs 3. Agitation; AMS - PRN ativan - Head CT reviewed- No intracranial mass, hemorrhage or evidence of acute infarct. - psych consult- patient placed on haldol 4. DM - hold home med - ISS- increased from low to medium - finger checks ACHS 5. Htn - monitor closely - started amlodipine - started PRN hydralazine - find secondary causes- renal artery duplex reviewed- 1. The main renal arteries are fairly well visualized. 2. No sonographically significant stenosis is identified. 3. The kidneys are normal and symmetric in size. There are no solid renal masses, abnormal calcifications or hydronephrosis noted, TSH- 0.96 noted 6. Ppx - lovenox - protonix Patient case discussed with and plan approved by Dr. Chen <Arcadio Chen - Last Filed: 04/29/17 21:21> Objective - Vital Signs/Intake and Output Vital Signs (last 24 hours): Temp Pulse Resp BP Pulse Ox 97.6 F 103 H 20 142/84 95 04/29/17 16:00 04/29/17 16:00 04/29/17 16:00 04/29/17 16:00 04/29/17 16:00 Intake and Output: 04/29/17 04/30/17 18:59 06:59 Intake Total 0 Balance 0 - Medications Medications: Current Medications Amlodipine Besylate (Norvasc) 5 mg PO DAILY [facility] Last Admin: 04/29/17 13:25 Dose: Not Given Enoxaparin Sodium (Lovenox) 40 mg SC DAILY [facility] PRN Reason: Protocol Last Admin: 04/27/17 11:14 Dose: 40 mg Haloperidol (Haldol) 5 mg PO BID PRN; Protocol PRN Reason: agitation/psychosis Last Admin: 04/29/17 17:56 Dose: 5 mg Hydralazine HCl (Apresoline) 25 mg PO Q8H PRN PRN Reason: SBP > 180 Last Admin: 04/29/17 17:52 Dose: 25 mg Sodium Chloride (Sodium Chloride 0.9%) 1,000 mls @ 100 mls/hr IV .Q10H [facility] Last Admin: 04/26/17 20:22 Dose: 100 mls/hr Insulin Human Lispro (Humalog Med) 0 units SC ACHS [facility] PRN Reason: Protocol Last Admin: 04/29/17 17:55 Dose: 5 units Lisinopril (Zestril) 10 mg PO DAILY [facility] Last Admin: 04/29/17 13:26 Dose: Not Given Lorazepam (Ativan) 0.5 mg IVP Q6 PRN; Protocol PRN Reason: Agitation Last Admin: 04/29/17 19:10 Dose: 0.5 mg Lorazepam (Ativan) 0.5 mg PO TID PRN; Protocol PRN Reason: Agitation Last Admin: 04/28/17 05:04 Dose: 0.5 mg Metronidazole (Flagyl) 500 mg PO Q8 [facility] Last Admin: 04/29/17 05:05 Dose: Not Given Morphine Sulfate (Morphine) 1 mg IVP Q4 PRN PRN Reason: Pain, severe (8-10) Nicotine (Nicoderm Cq) 1 patch TD DAILY [facility] Last Admin: 04/29/17 14:11 Dose: 1 patch Ondansetron HCl (Zofran Inj) 4 mg IVP Q6 PRN PRN Reason: Nausea/Vomiting Last Admin: 04/28/17 20:01 Dose: 4 mg Ondansetron HCl (Zofran Inj) 4 mg IVP ONCE PRN PRN Reason: Nausea/Vomiting Pantoprazole Sodium (Protonix Ec Tab) 40 mg PO 0600 [facility] Last Admin: 04/29/17 05:05 Dose: Not Given - Labs Labs: 04/29/17 06:45 04/29/17 06:45 PT 10.8 Seconds (9.9-11.8) 04/28/17 10:30 INR 1.00 (0.93-1.08) 04/28/17 10:30 APTT 28.7 Seconds (23.7-30.8) 04/27/17 06:00 Assessment and Plan - Assessment and Plan (Free Text) Plan: discussed w/ resident went over meds labs await urology recommendations for to when to d/c
[2017-04-29] MEDS ORDERED: Lactated Ringer's 1,000 ML IV SCH (12:51)
[2017-04-29] MEDS ORDERED: HYDROmorphone 0.5 mg/0.5 ml ISec IVP PRN (12:51)
[2017-04-29] MEDS ORDERED: Midazolam 2 MG/2 ML VIAL ONE (13:04)
[2017-04-29] MEDS ORDERED: Midazolam 2 MG/2 ML VIAL IVP ONE (13:50)
--- NOTE | 2017-04-29 15:03 | PN ---
SUBJECTIVE: The patient is a 47-year-old -[place] female, who was admitted on the medical side for evaluation of vomiting and chest pain. Psych consult was called for evaluation of altered mental status. This financial underwriter attempted to speak to the patient yesterday. The patient was deeply sleeping. Record was reviewed. The patient has history of cocaine abuse as well as mental illness, depression and anxiety. Please see initial notes for more detailed information. The patient was followed up today. The patient presented to be sleepy, easily arousable. After a few seconds, the patient fell back asleep. Collateral information was obtained from the nursing staff. As per report, the patient was agitated and restless. The patient was not confused. At the same time, the patient is aware that she is in the hospital, but she does not known what hospital she is in. At the same time, the patient knows that she came here for surgery. The patient is supposed to have cystoscopy because of the lesion over the right bladder wall. This financial underwriter reviewed vital signs, vital signs seems to be stable. Temperature 97.6, pulse 72, blood pressure is 148/82, oxygen saturation is 98. Medications reviewed. The patient is on Norvasc, Lovenox, haloperidol was resumed because the patient was on that medication before as per record from the [facility]. The patient is on hydralazine, Humalog, Zestril, Ativan IV push q.6 hours p.r.n. and 0.5 mg 3 times a day p.o. as needed. Flagyl, morphine, Zofran, Protonix, and sodium chloride. Labs reviewed, most recent was from today. Mental status examination, as this financial underwriter described above, the patient was sleeping, easily arousable. The patient knows that she is in the hospital, but she does not know what hospital she is in. The patient knows the circumstances of her admission. She says I needed to have surgery, besides that there is no option to have meaningful conversation because the patient is falling asleep. IMPRESSION: Altered mental status, most likely related to the combination of her medical issues as well as this financial underwriter cannot exclude that the patient was using some substances because she has history of cocaine abuse as well as blood pressure and tachycardia the patient experienced, which could be related to alcohol withdrawal. PLAN: Continue current management. Haloperidol was resumed as needed. Ativan is on board. This financial underwriter would suggest multivitamin, thiamine, folic acid. Meanwhile, continue current management. Give me a callback if you have any questions, psychiatry team will followup and advise accordingly. Thank you very much for letting me participate in the care of your patient. Naida Romo MD
--- NOTE | 2017-04-29 16:38 | PN ---
DATE: 04/29/2017 SUBJECTIVE: The patient is seen in her room at [facility]. She is awake and alert, recovered from anesthesia. PHYSICAL EXAMINATION: VITAL SIGNS She is afebrile with temp of 98.2. ABDOMEN: Soft, nontender. No rebound or guarding. No mass. Cervantes catheter in place, draining clear colored urine. PLAN: The patient had a transurethral resection of bladder tumor done today. I would maintain the Cervantes catheter overnight. Cervantes catheter can be removed tomorrow morning and the patient can be discharged home. The patient will need to follow up with me in the office in approximately 6 weeks to discuss the final pathology report and to schedule surveillance cystoscopy as it does appear to be a malignant bladder tumor. John Schwartz MD
--- NOTE | 2017-04-29 19:29 | CP.PCM.PN ---
<Jayson Parham - Last Filed: 04/29/17 19:29> Subjective - Date & Time of Evaluation Date of Evaluation: 04/29/17 Time of Evaluation: 19:22 - Subjective Subjective: Bilingual Interpreter inspector outside production Note: Paged by RN for evaluation of patient who was described as being agitated. Patient seen and examined at bedside. Patient states that she wants to leave the hospital and have the valle removed. She was pacing in her room and would intermittently walk into the hallway to the nurse's station. Patient education was provided. She was informed that removing the valle at this time would increase her mortality and morbidity rate, which has the potential to lead to her and/or paralysis. Dr. Morel, who is the patient urologist during this hospitalization, service was called. Spoke with Dr. Reynoso who is staff radiation therapist for the service. Patient case was discussed. Dr. Reynoso stated that removing the valle at this time is ill advised as this can lead to obstruction/significant bleeding. Was instructed to tell nursing to irrigate valle prn overnight and that he will evaluate her in the morning. Dr. Saenz, who the patient's psychiatrist, service was called. Spoke with Dr. Joseph Pina who is staff radiation therapist for the service. Patient case was discussed. Though the patient is AAO x 4 she is not providing a reasonable justification for her desire to leave against medical advice and so does not display mental capacity to make her medical decisions at this time. Recommended 1 mg of Ativan for chemical sedation if needed. Patient's son was contacted via phone. The patient spoke with son multiple times. Permission was granted by patient to speak with son. He was informed of the patient's situation and he too agreed that she required hospital care. During this time the patient was becoming increasingly agitated and hostile towards staff members. A code alejandro was called to protect both the patient and the staff. Patients son arrived to hospital and was present near patient room. Case was discussed with son who stated that he would talk to his mother in order to convince her to stay to receive hospital care. Patient is currently compliant for staying and is resting in bed. I was also informed that patient was also given ativan 0.5 mg IV to help ease her agitation. Patient case and plan was discussed with senior residents and house staff including Dr. Reynoso, Dr. Pina, Dr. Patino. Continue to educate patient for need of hospitalization and use prn Ativan 0.5mg IV q6 and Haldol 5mg PO BID as previously ordered for agitation. Jayson Parham PGY1 Short Call Bilingual Interpreter Objective - Vital Signs/Intake and Output Vital Signs (last 24 hours): Temp Pulse Resp BP Pulse Ox 97.6 F 103 H 20 142/84 95 04/29/17 16:00 04/29/17 16:00 04/29/17 16:00 04/29/17 16:00 04/29/17 16:00 Intake and Output: 04/29/17 04/30/17 18:59 06:59 Intake Total 0 Balance 0 - Medications Medications: Current Medications Amlodipine Besylate (Norvasc) 5 mg PO DAILY [facility] Last Admin: 04/29/17 13:25 Dose: Not Given Enoxaparin Sodium (Lovenox) 40 mg SC DAILY [facility] PRN Reason: Protocol Last Admin: 04/27/17 11:14 Dose: 40 mg Haloperidol (Haldol) 5 mg PO BID PRN; Protocol PRN Reason: agitation/psychosis Last Admin: 04/29/17 17:56 Dose: 5 mg Hydralazine HCl (Apresoline) 25 mg PO Q8H PRN PRN Reason: SBP > 180 Last Admin: 04/29/17 17:52 Dose: 25 mg Sodium Chloride (Sodium Chloride 0.9%) 1,000 mls @ 100 mls/hr IV .Q10H [facility] Last Admin: 04/26/17 20:22 Dose: 100 mls/hr Insulin Human Lispro (Humalog Med) 0 units SC ACHS [facility] PRN Reason: Protocol Last Admin: 04/29/17 17:55 Dose: 5 units Lisinopril (Zestril) 10 mg PO DAILY [facility] Last Admin: 04/29/17 13:26 Dose: Not Given Lorazepam (Ativan) 0.5 mg IVP Q6 PRN; Protocol PRN Reason: Agitation Last Admin: 04/29/17 07:28 Dose: 0.5 mg Lorazepam (Ativan) 0.5 mg PO TID PRN; Protocol PRN Reason: Agitation Last Admin: 04/28/17 05:04 Dose: 0.5 mg Metronidazole (Flagyl) 500 mg PO Q8 [facility] Last Admin: 04/29/17 05:05 Dose: Not Given Morphine Sulfate (Morphine) 1 mg IVP Q4 PRN PRN Reason: Pain, severe (8-10) Nicotine (Nicoderm Cq) 1 patch TD DAILY [facility] Last Admin: 04/29/17 14:11 Dose: 1 patch Ondansetron HCl (Zofran Inj) 4 mg IVP Q6 PRN PRN Reason: Nausea/Vomiting Last Admin: 04/28/17 20:01 Dose: 4 mg Ondansetron HCl (Zofran Inj) 4 mg IVP ONCE PRN PRN Reason: Nausea/Vomiting Pantoprazole Sodium (Protonix Ec Tab) 40 mg PO 0600 [facility] Last Admin: 04/29/17 05:05 Dose: Not Given - Labs Labs: 04/29/17 06:45 04/29/17 06:45 PT 10.8 Seconds (9.9-11.8) 04/28/17 10:30 INR 1.00 (0.93-1.08) 04/28/17 10:30 APTT 28.7 Seconds (23.7-30.8) 04/27/17 06:00 <Arcadio Chen S - Last Filed: 05/03/17 05:46> Objective - Vital Signs/Intake and Output Vital Signs (last 24 hours): Temp Pulse Resp BP Pulse Ox 98.0 F 93 H 20 124/75 97 05/02/17 07:54 05/02/17 09:21 05/02/17 07:54 05/02/17 09:21 05/02/17 07:54 Intake and Output: 05/02/17 05/03/17 18:59 06:59 Intake Total 1260 Output Total 1500 Balance -240 - Medications Medications: Current Medications Acetaminophen (Tylenol 325mg Tab) 650 mg PO Q6H PRN PRN Reason: Fever >100.4 F Last Admin: 05/01/17 17:37 Dose: 650 mg Amlodipine Besylate (Norvasc) 5 mg PO DAILY [facility] Last Admin: 05/02/17 09:21 Dose: 5 mg Heparin Sodium (Porcine) (Heparin) 5,000 units SC Q12 [facility] PRN Reason: Protocol Last Admin: 05/02/17 21:00 Dose: 5,000 units Hydralazine HCl (Apresoline) 25 mg PO Q8H PRN PRN Reason: SBP > 180 Last Admin: 04/29/17 17:52 Dose: 25 mg Linezolid (Zyvox 600mg/300ml D5w) 600 mg in 300 mls @ 200 mls/hr IVPB Q12 [facility] PRN Reason: Protocol Stop: 05/09/17 10:01 Last Admin: 05/02/17 22:16 Dose: 200 mls/hr Potassium Chloride 10 meq/ (Sodium Chloride) 1,005 mls @ 100 mls/hr IV .Q10H3M [facility] Last Admin: 05/02/17 17:10 Dose: 100 mls/hr Meropenem 1g/NS 100mL IVPB (Meropenem 1g/Ns 100ml Ivpb) 1 gm in 100 mls @ 100 mls/hr IVPB Q12 [facility] PRN Reason: Protocol Stop: 05/10/17 22:01 Last Admin: 05/02/17 21:01 Dose: 100 mls/hr Insulin Detemir (Levemir) 10 unit SC HS [facility] Last Admin: 05/02/17 22:12 Dose: 10 unit Insulin Human Lispro (Humalog High) 0 units SC ACHS [facility] PRN Reason: Protocol Last Admin: 05/02/17 22:12 Dose: 3 units Lisinopril (Zestril) 10 mg PO DAILY [facility] Last Admin: 05/02/17 09:20 Dose: 10 mg Lorazepam (Ativan) 1 mg PO TID [facility] PRN Reason: Protocol Last Admin: 05/02/17 17:07 Dose: 1 mg Lorazepam (Ativan) 0.5 mg IVP Q6 PRN; Protocol PRN Reason: agitation/anxiety Last Admin: 05/03/17 03:28 Dose: 0.5 mg Metronidazole (Flagyl) 500 mg PO Q8 [facility] Last Admin: 05/03/17 05:31 Dose: Not Given Nicotine (Nicoderm Cq) 1 patch TD DAILY [facility] Last Admin: 05/02/17 10:41 Dose: Not Given Ondansetron HCl (Zofran Inj) 4 mg IVP Q6 PRN PRN Reason: Nausea/Vomiting Last Admin: 04/30/17 21:11 Dose: 4 mg Pantoprazole Sodium (Protonix Ec Tab) 40 mg PO 0600 [facility] Last Admin: 05/03/17 05:31 Dose: Not Given Ziprasidone (Geodon Cap) 20 mg PO AMHS [facility] PRN Reason: Protocol Last Admin: 05/02/17 21:01 Dose: 20 mg Ziprasidone (Geodon Inj) 20 mg IM BID PRN; Protocol PRN Reason: agitaiton/psychosis Last Admin: 05/02/17 11:31 Dose: 20 mg - Labs Labs: 05/02/17 08:00 05/02/17 08:00 PT 11.5 Seconds (9.9-11.8) 05/01/17 10:30 INR 1.06 (0.93-1.08) 05/01/17 10:30 APTT 32.2 Seconds (23.7-30.8) H 05/01/17 10:30 Assessment and Plan - Assessment and Plan (Free Text) Plan: discussed w/ resident at length about this very difficult patient
--- NOTE | 2017-04-29 22:50 | OP ---
PROCEDURE DATE: 04/29/2017 PREOPERATIVE DIAGNOSES: Hematuria and bladder mass. POSTOPERATIVE DIAGNOSES: Hematuria, bladder cancer and urethral stricture. PROCEDURE: A cystoscopy, urethral dilation with sounds, transurethral resection of medium bladder tumor. SURGEON: Dr. John Schwartz. TYPE OF ANESTHESIA: General. SPECIMEN: Bladder tumor chips, sent for pathology. DRAINS: A 20-[place] 2-way Cervantes catheter. COMPLICATIONS: None. OPERATIVE FINDINGS: After informed consent was obtained, the patient was taken to the operating room, placed on the operating table. Anesthesia was administered. The patient was placed in the dorsal lithotomy position, prepped and draped in usual sterile fashion. On exam, the patient had a tight appearing urethral meatus. At this point, an attempt was made to pass the 21-scope, which could not be easily passed, so a urethral dilation was performed. The urethral sounds were obtained. The urethra was then dilated from 12-[place] to 24-[place] using the sounds. There appeared to be a stricture in the mid urethra. After dilation, the 21-scope was able to be easily passed into the bladder. A full survey inspection was then performed. There was approximately 2.5 cm papillary bladder tumor on the right superior lateral wall. There were no other satellite lesions. Both urethral orifices were visualized and appeared within normal limits. At the point, the cystoscope was removed and a 26-[place] resectoscope was then passed into the bladder under direct vision. Using the resecting loop, the tumor was resected in its entirety down into the muscular wall. Any bleeding points encountered during the resection were controlled using electrocautery. After the tumor was completely resected, the Urovac device was used to evacuate the tumor chips which were sent to the pathology as specimen. A roller ball electrode was placed, the base of the tumor was completely fulgurated with the roller ball electrode as well as an area surrounding normal mucosa. A final inspection was then made. There was complete hemostasis from the tumor resection site. There was no untreated tumor noted. There were no tumor chips in the bladder. At this point, the bladder was copiously irrigated. The resectoscope was removed and a 20-[place] 2-way Cervantes catheter was passed and placed to straight drainage. The patient tolerated the procedure well. She was taken to the recovery room in awake and stable condition. John Schwartz MD [facility] # [id number]
[2017-04-30] MEDS: Pantoprazole 40 mg EC Tab PO SCH (06:14)
[2017-04-30 07:27] LABS: BASO # 0.01 K/mm3 (0.0-2.0); BASO % 0.1 % (0.0-3.0); EOS # 0.1 (0.0-0.7); EOS % 0.5 % (1.5-5.0); GRAN # 10.06 (1.4-6.5); GRAN % 80.2 % (50.0-68.0); HEMATOCRIT 40.3 % (36.0-48.0); LYMPH # 1.4 (1.2-3.4); LYMPH % 11.2 % (22.0-35.0); MEAN CELL VOLUME 84.5 fl (80.0-105.0); MEAN CORPUSCULAR HEMOGLOBIN 28.5 pg (25.0-35.0); MEAN CORPUSCULAR HGB CONC 33.7 g/dl (31.0-37.0); RED CELL DISTRIBUTION WIDTH 13.1 % (11.5-14.5); WHITE BLOOD COUNT 12.5 10^3/ul (4.5-11.0)
[2017-04-30 07:37] LABS: ALB/GLOB RATIO 1.2 (1.1-1.8); ALKALINE PHOSPHATASE 105 U/L (38-126); ALT/SGPT 39 U/L (7-56); AST/SGOT 24 U/L (14-36); BILIRUBIN,TOTAL 0.6 mg/dL (0.2-1.3); BLOOD UREA NITROGEN 24 mg/dL (7-21); CALCIUM 9.2 mg/dL (8.4-10.5); CARBON DIOXIDE 28 mmol/L (21-33); CHLORIDE 98 mmol/L (98-107); GFR AFRICAN-AMERICAN > 60; POTASSIUM 3.7 mmol/L (3.6-5.0); SODIUM 135 mmol/L (132-148); TOTAL PROTEIN 6.9 g/dL (5.8-8.3)
[2017-04-30 07:50] LABS: GLUCOSE,RANDOM 302 mg/dL (70-110)
--- NOTE | 2017-04-30 08:08 | CP.PCM.DIS ---
Provider - Provider Date of Admission: 04/28/17 14:39 Attending physician: Altaf Peguero MD Consults: Urol = Lana IR = Berry Psych = Dr. Romo Time Spent in preparation of Discharge (in minutes): 60 Hospital Course - Lab Results Lab Results: Most Recent Lab Values WBC 12.5 10^3/ul (4.5-11.0) H D 04/30/17 07:00 RBC 4.77 10^6/uL (3.5-6.1) 04/30/17 07:00 Hgb 13.6 g/dL (12.0-16.0) D 04/30/17 07:00 Hct 40.3 % (36.0-48.0) 04/30/17 07:00 MCV 84.5 fl (80.0-105.0) 04/30/17 07:00 MCH 28.5 pg (25.0-35.0) 04/30/17 07:00 MCHC 33.7 g/dl (31.0-37.0) 04/30/17 07:00 RDW 13.1 % (11.5-14.5) 04/30/17 07:00 Plt Count 257 10^3/uL (120.0-450.0) 04/30/17 07:00 MPV 10.0 fl (7.0-11.0) 04/30/17 07:00 Gran % 80.2 % (50.0-68.0) H 04/30/17 07:00 Lymph % (Auto) 11.2 % (22.0-35.0) L 04/30/17 07:00 Stone % (Auto) 8.0 % (1.0-6.0) H 04/30/17 07:00 Eos % (Auto) 0.5 % (1.5-5.0) L 04/30/17 07:00 Baso % (Auto) 0.1 % (0.0-3.0) 04/30/17 07:00 Gran # 10.06 (1.4-6.5) H 04/30/17 07:00 Lymph # 1.4 (1.2-3.4) 04/30/17 07:00 Stone # 1.0 (0.1-0.6) H 04/30/17 07:00 Eos # 0.1 (0.0-0.7) 04/30/17 07:00 Baso # 0.01 K/mm3 (0.0-2.0) 04/30/17 07:00 PT 10.8 Seconds (9.9-11.8) 04/28/17 10:30 INR 1.00 (0.93-1.08) 04/28/17 10:30 APTT 28.7 Seconds (23.7-30.8) 04/27/17 06:00 pO2 97 mm/Hg (30-55) H 04/26/17 15:25 VBG pH 7.39 (7.32-7.43) 04/26/17 15:25 VBG pCO2 47.0 (40-60) 04/26/17 15:25 VBG HCO3 28.5 mmol/l (21-28) H 04/26/17 15:25 VBG Total CO2 29.9 mmol.L (22-28) H 04/26/17 15:25 VBG O2 Sat (Calc) 98.4 % (40-65) H 04/26/17 15:25 VBG Base Excess 2.8 mmol/L (0.0-2.0) H 04/26/17 15:25 VBG Potassium 6.0 mmol/L (3.6-5.2) H 04/26/17 15:25 Sodium 129.0 mmol/L (132-148) L 04/26/17 15:25 Chloride 102.0 mmol/L (98-107) 04/26/17 15:25 Glucose 292 mg/dl (65-105) H 04/26/17 15:25 Lactate 1.7 mmol/L (0.7-2.1) 04/26/17 15:25 FiO2 21.0 % 04/26/17 15:25 Sodium 135 mmol/L (132-148) 04/30/17 07:00 Potassium 3.7 mmol/L (3.6-5.0) 04/30/17 07:00 Chloride 98 mmol/L (98-107) 04/30/17 07:00 Carbon Dioxide 28 mmol/L (21-33) 04/30/17 07:00 Anion Gap 13 (10-20) 04/30/17 07:00 BUN 24 mg/dL (7-21) H 04/30/17 07:00 Creatinine 0.8 mg/dL (0.5-1.4) 04/30/17 07:00 Est GFR ( Amer) > 60 04/30/17 07:00 Est GFR (Non-Af Amer) > 60 04/30/17 07:00 POC Glucose (mg/dL) 323 mg/dL (65-110) H 04/30/17 03:25 Random Glucose 302 mg/dL (70-110) H* 04/30/17 07:00 Calcium 9.2 mg/dL (8.4-10.5) 04/30/17 07:00 Total Bilirubin 0.6 mg/dL (0.2-1.3) 04/30/17 07:00 AST 24 U/L (14-36) 04/30/17 07:00 ALT 39 U/L (7-56) 04/30/17 07:00 Alkaline Phosphatase 105 U/L (38-126) 04/30/17 07:00 Lactate Dehydrogenase 597 U/L (333-699) 04/27/17 06:00 Total Creatine Kinase 151 U/L (35-230) 04/27/17 06:00 Troponin I < 0.01 ng/mL 04/27/17 06:00 Total Protein 6.9 g/dL (5.8-8.3) 04/30/17 07:00 Albumin 3.8 g/dL (3.0-4.8) 04/30/17 07:00 Globulin 3.1 gm/dL 04/30/17 07:00 Albumin/Globulin Ratio 1.2 (1.1-1.8) 04/30/17 07:00 Amylase 79 U/L (35-125) 04/26/17 15:25 Lipase 205 U/L (23-300) 04/26/17 15:25 TSH 3rd Generation 0.96 mIU/mL (0.46-4.68) 04/29/17 06:45 Venous Blood Potassium 6.0 mmol/L (3.6-5.2) H 04/26/17 15:25 Urine Color Light red (YELLOW) 04/26/17 14:43 Urine Appearance Sl cloudy (CLEAR) 04/26/17 14:43 Urine pH 7.0 (4.7-8.0) 04/26/17 14:43 Ur Specific [place] 1.020 (1.005-1.035) 04/26/17 14:43 Urine Protein 100 mg/dL (<30 mg/dL) H 04/26/17 14:43 Urine Glucose (UA) >=1000 mg/dL (NEGATIVE) 04/26/17 14:43 Urine Ketones Negative mg/dL (NEGATIVE) 04/26/17 14:43 Urine Blood Large (NEGATIVE) H 04/26/17 14:43 Urine Nitrate Negative (NEGATIVE) 04/26/17 14:43 Urine Bilirubin Negative (NEGATIVE) 04/26/17 14:43 Urine Urobilinogen 0.2 E.U./dL (<1 E.U./dL) 04/26/17 14:43 Ur Leukocyte Esterase Negative Claudine/uL (NEGATIVE) 04/26/17 14:43 Urine RBC Tntc /hpf (0-2) 04/26/17 14:43 Urine WBC 0 - 2 /hpf (0-6) 04/26/17 14:43 Ur Epithelial Cells 0 - 2 /hpf (0-5) 04/26/17 14:43 Urine HCG, Qual Negative (NEGATIVE) 04/29/17 05:10 Urine Opiates Screen Negative (NEGATIVE) 04/26/17 16:15 Urine Methadone Screen Negative (NEGATIVE) 04/26/17 16:15 Ur Barbiturates Screen Negative (NEGATIVE) 04/26/17 16:15 Ur Phencyclidine Scrn Negative (NEGATIVE) 04/26/17 16:15 Ur Amphetamines Screen Negative (NEGATIVE) 04/26/17 16:15 U Benzodiazepines Scrn Negative (NEGATIVE) 04/26/17 16:15 U Oth Cocaine Metabols Negative (NEGATIVE) 04/26/17 16:15 U Cannabinoids Screen Positive (NEGATIVE) H 04/26/17 16:15 Alcohol, Quantitative < 10 mg/dL (0-10) 04/27/17 14:10 - Hospital Course Hospital Course: 47 with PMH of DM and H.pylori infections presented intractable vomiting, NBNB diarrhea, and abd pain. Epigastric pain radiates throughout her abdomen. She denies any recent travel, sick contacts. An incidental finding of a 1.4 cm lesion on R bladder wall and a renal cyst. Pt is s/p transurethral resection of bladder tumor (POD1). 1. Gastroenteritis Intractable vomiting and abd pain - resolved details- CT abd impression: 1.4 cm high attenuation lesion along the right bladder wall. Sigmoid diverticulosis without evidence of diverticulitis. Exophytic left upper pole renal cortical cyst. - flagyl day 4. Will Rx 5 more days - zofran prn; pain control; IVF prn - protonix for GI ppx - Beta HCG- negative 2. Bladder wall mass, Renal Cyst - CT abd impression: 1.4 cm high attenuation lesion along the right bladder wall. Sigmoid diverticulosis without evidence of diverticulitis. - 2.5 cm papillary bladder tumor on R superior lateral wall, no satellite lesions - After cystoscopy, urologist Dr Reynoso requested to have valle irrigated overnight 3. Agitation possibly due to delirium AMS - resolved 1:1 - As of today, per psych: no capacity to leave AMA. - As of today, per psych: no psych clearance to discharge home - Psych consult - Ativan 0.5mg IV q6 PRN; Haldol 5mg PO BID PRN - Per Dr. Pina, Give ativan and haldol together PRN - s/p code rey - Head CT reviewed- No intracranial mass, hemorrhage or evidence of acute infarct. - psych consult- patient placed on haldol 4. Delirium - TSH normal - New leukocytosis, likely reactive to cystcscopy and TURB. No f/c/VARGAS 5. DM, pending A1C - hold home med - ISS- increased from low to medium - finger checks ACHS 6. Htn - started amlodipine - started PRN hydralazine - find secondary causes- renal artery duplex reviewed- 1. The main renal arteries are fairly well visualized. 2. No sonographically significant stenosis is identified. 3. The kidneys are normal and symmetric in size. 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 Chen Discharge Exam - Head Exam Head Exam: ATRAUMATIC, NORMAL INSPECTION, NORMOCEPHALIC Discharge Plan - Discharge Medications Prescriptions: amLODIPine [Norvasc] 5 mg PO DAILY #30 tab Lisinopril [Zestril] 10 mg PO DAILY #30 tab metroNIDAZOLE [Flagyl] 500 mg PO Q8 #15 tab - Follow Up Plan Condition: FAIR Disposition: HOME/ ROUTINE Additional Instructions: Instructions Follow up with Urologist, Dr. Reynoso, in 6 weeks, for bladder pathology result Follow up with primary care doctor in 1 week Follow up with Psychiatrist, Dr. Pina/ If new symptoms, call primary care doctor or go to emergency room New meds continue janumet New - lisinopril and Amlodipine for blood pressure Discharge diagnosis Bladder mass Status post transurethral resection of bladder tumor Gastroenteritis Intractable vomiting and abd pain - resolved Agitation Hx DM and HTN
[2017-04-30] MEDS: Insulin Lispro (humaLOG) MEDIUM Coverage SC SCH ×4 (08:27→21:09)
--- NOTE | 2017-04-30 10:02 | PN ---
DATE: 04/30/2017 The urine is now clear. The Cervantes can be discontinued, and she will follow up with Dr. Schwartz in the office as an outpatient. Juan Reynoso MD
--- NOTE | 2017-04-30 11:27 | CP.PCM.PN ---
Subjective - Date & Time of Evaluation Date of Evaluation: 04/30/17 Time of Evaluation: 11:22 - Subjective Subjective: PGY-[address] Chen When see pt this AM, pt was sitting by bedside eating breakfast. She expresses wishes to go home. Dr Pina states that when she interviewed pt, she was AAOx1. When I interview her, she was AA0x3. Denies VARGAS, F/C. (+) irritation from valle. Urine clear gross red, which is expected for the next 2-3 days s/p cystoscopy/ TURB. Denies VARGAS, F/C, VARGAS, SOB, pain anywhere. No dysuria s/p valle removal. I called pt's pharmacy. She was on Xanax and percocet, (per pharmacist) filled by different doctors at different times. Code alejandro 1: 11:24 5S - Pt wants to leave. stating she is taking care of a grandchild. Explained to pt that we need to r/o infection. Security guards arrived. Haldol/Ativan PO given. 1:[address] Pina, adjusted PRN to BID. family notified, who states that they will visit. Started 1/2NS@75. ID consult. Dr. Chen spoke with Dr. Pina, who will initiate screen by [facility] tomorrow. Code alejandro 2: 12:26 5R; Code alejandro 3: 12:26 staircase Objective - Vital Signs/Intake and Output Vital Signs (last 24 hours): Temp Pulse Resp BP Pulse Ox 98.6 F 109 H 20 147/85 94 L 04/30/17 07:30 04/30/17 09:56 04/30/17 07:30 04/30/17 09:57 04/30/17 07:30 Intake and Output: 04/30/17 04/30/17 06:59 18:59 Intake Total 540 Output Total 750 Balance -210 - Medications Medications: Current Medications Amlodipine Besylate (Norvasc) 5 mg PO DAILY [facility] Last Admin: 04/30/17 09:57 Dose: 5 mg Enoxaparin Sodium (Lovenox) 40 mg SC DAILY [facility] PRN Reason: Protocol Last Admin: 04/27/17 11:14 Dose: 40 mg Haloperidol (Haldol) 5 mg PO BID PRN; Protocol PRN Reason: agitation/psychosis Last Admin: 04/29/17 17:56 Dose: 5 mg Hydralazine HCl (Apresoline) 25 mg PO Q8H PRN PRN Reason: SBP > 180 Last Admin: 04/29/17 17:52 Dose: 25 mg Sodium Chloride (Sodium Chloride 0.9%) 1,000 mls @ 100 mls/hr IV .Q10H [facility] Last Admin: 04/26/17 20:22 Dose: 100 mls/hr Insulin Human Lispro (Humalog Med) 0 units SC ACHS [facility] PRN Reason: Protocol Last Admin: 04/30/17 08:27 Dose: 7 units Lisinopril (Zestril) 10 mg PO DAILY [facility] Last Admin: 04/30/17 09:57 Dose: 10 mg Lorazepam (Ativan) 1 mg PO BID PRN; Protocol PRN Reason: Agitation Lorazepam (Ativan) 0.5 mg IVP Q6 [facility] PRN Reason: Protocol Metronidazole (Flagyl) 500 mg PO Q8 [facility] Last Admin: 04/30/17 06:14 Dose: 500 mg Morphine Sulfate (Morphine) 1 mg IVP Q4 PRN PRN Reason: Pain, severe (8-10) Nicotine (Nicoderm Cq) 1 patch TD DAILY [facility] Last Admin: 04/30/17 09:55 Dose: 1 patch Ondansetron HCl (Zofran Inj) 4 mg IVP Q6 PRN PRN Reason: Nausea/Vomiting Last Admin: 04/28/17 20:01 Dose: 4 mg Ondansetron HCl (Zofran Inj) 4 mg IVP ONCE PRN PRN Reason: Nausea/Vomiting Pantoprazole Sodium (Protonix Ec Tab) 40 mg PO 0600 [facility] Last Admin: 04/30/17 06:14 Dose: 40 mg - Labs Labs: 04/30/17 07:00 04/30/17 07:00 PT 10.8 Seconds (9.9-11.8) 04/28/17 10:30 INR 1.00 (0.93-1.08) 04/28/17 10:30 APTT 28.7 Seconds (23.7-30.8) 04/27/17 06:00 - Constitutional Appears: No Acute Distress - Head Exam Head Exam: ATRAUMATIC, NORMAL INSPECTION, NORMOCEPHALIC - Eye Exam Eye Exam: EOMI, Normal appearance, PERRL. absent: Scleral icterus - ENT Exam ENT Exam: Mucous Membranes Moist - Neck Exam Neck Exam: Normal Inspection - Respiratory Exam Respiratory Exam: Clear to Ausculation Bilateral. absent: Rales, Rhonchi, Wheezes - Cardiovascular Exam Cardiovascular Exam: REGULAR RHYTHM, +S1, +S2 - GI/Abdominal Exam GI & Abdominal Exam: Soft, Normal Bowel Sounds. absent: Distended, Firm, Guarding, Rigid, Tenderness - Extremities Exam Extremities Exam: Normal Capillary Refill. absent: Calf Tenderness, Pedal Edema Additional comments: valle intact, clear dark casie urine with light red - Back Exam Back Exam: absent: CVA tenderness (L), CVA tenderness (R) - Neurological Exam Neurological Exam: Alert, Awake, Normal Gait, Oriented x3 - Psychiatric Exam Psychiatric exam: Agitated, Normal Affect - Skin Skin Exam: Dry, Normal Color, Warm Assessment and Plan - Assessment and Plan (Free Text) Plan: 47 with PMH of DM and H.pylori infections presented intractable vomiting, NBNB diarrhea, and abd pain. Epigastric pain radiates throughout her abdomen. She denies any recent travel, sick contacts. An incidental finding of a 1.4 cm lesion on R bladder wall and a renal cyst. Pt is s/p transurethral resection of bladder tumor (POD1). 1. Gastroenteritis Intractable vomiting and abd pain - resolved details- CT abd impression: 1.4 cm high attenuation lesion along the right bladder wall. Sigmoid diverticulosis without evidence of diverticulitis. Exophytic left upper pole renal cortical cyst. - New leukocytosis, likely reactive. COnsult ID to r/o infection - flagyl day 4. Will Rx 5 more days - zofran prn; pain control; IVF - protonix for GI ppx - Beta HCG- negative 2. Bladder wall mass, Renal Cyst - CT abd impression: 1.4 cm high attenuation lesion along the right bladder wall. Sigmoid diverticulosis without evidence of diverticulitis. - 2.5 cm papillary bladder tumor on R superior lateral wall, no satellite lesions - F/u with urol outpt 3. Agitation - on 1:1 - As of today, per psych: no capacity to leave AMA. - As of today, per psych: no psych clearance to discharge home - Psych on board - Ativan 0.5mg IV q6 - Per Dr. Pina, Give ativan and haldol PO together PRN - s/p code rey x 3 today, x 1 yesterday - Head CT reviewed- No intracranial mass, hemorrhage or evidence of acute infarct. 4. Questionable Delirium - TSH normal - New leukocytosis, likely reactive to cystcscopy and TURB. No f/c/VARGAS 5. DM, pending A1C - hold home med - ISS- increased from low to medium - finger checks ACHS 6. Htn - started amlodipine - started PRN hydralazine - find secondary causes- renal artery duplex reviewed- 1. The main renal arteries are fairly well visualized. 2. No sonographically significant stenosis is identified. 3. The kidneys are normal and symmetric in size. There are no solid renal masses, abnormal calcifications or hydronephrosis noted, TSH- 0.96 noted 7 Tobacco abuse - nicoderm patch - on awake counselor smoking cessation Ppx - lovenox - protonix Disposition - urol clearance to go home - No psych clearance yet - ID consult as part of medical clearance for [facility] screening ivania Chen
[2017-04-30] MEDS: Sodium Chloride 0.45% 1,000 ML IV SCH (12:45)
[2017-04-30 14:21] LABS: VENOUS BLOOD GAS BASE EXCESS 6.6 mmol/L (0.0-2.0); VENOUS BLOOD PH 7.42 (7.32-7.43)
[2017-04-30 15:59] LABS: URINE BILIRUBIN NEGATIVE (NEGATIVE); URINE BLOOD LARGE (NEGATIVE); URINE GLUCOSE (UA) 100 mg/dL (NEGATIVE); URINE KETONE NEGATIVE (NEGATIVE); URINE LEUKOCYTE ESTERASE SMALL Leu/uL (NEGATIVE); URINE PROTEIN 100 mg/dL (<30 mg/dL); URINE UROBILINOGEN 0.2 E.U./dL (<1 E.U./dL)
[2017-04-30 16:00] LABS: URINE APPEARANCE SL CLOUDY (CLEAR); URINE COLOR YELLOW (YELLOW)
[2017-04-30 16:16] LABS: URINE BACTERIA SMALL (NEG); URINE RBC TNTC /hpf (0-2)
--- NOTE | 2017-04-30 18:15 | PN ---
SUBJECTIVE: I saw her resting comfortably in bed. She does not want to be here any more, so she is starting to sign out. She is on a one-to-one right now because she is not cleared psychologically. She wants to sign herself in to 5B and she is making up stories that would not corroborate with family. We are again going to do further tests blood cultures, urine cultures, get infectious disease in to take a look at her also. PHYSICAL EXAMINATION: VITAL SIGNS: She has a 98.6 temperature, 109 pulse, 147/85 blood pressure, 20 respiratory rate and 94% oxygen saturation on room air. HEENT: Head is atraumatic, normocephalic. HEART: Regular rate. LUNGS: Clear to auscultation. ABDOMEN: Soft. EXTREMITIES: No edema. MEDICATIONS: She is currently on Apresoline, Ativan, Flagyl, Haldol, insulin, Lovenox, morphine, Nicoderm, Norvasc, Protonix, IV fluids, Zestril, Zofran. LABORATORY DATA: 135 sodium, potassium 3.7, BUN 24, creatinine 0.8,, sugars down to 272. Calcium 9.2. Total bilirubin 0.6. AST is 24, ALT is 39, alkaline phosphatase 105, total protein 6.9. White count bumped up to 12.5, hemoglobin 13.6, hematocrit 40.3, and platelets 257. PLAN: We called the Infectious Disease. Continue with the treatment. May be tomorrow she might be able to be discharged to [facility]. She will screened once she is medically cleared. I called Dr. Dahl for his expertise to make sure we are not missing on infection. Urology signed off, and she has multiple issues. A maury rey had been called on her for her problems that she is putting on us. She did have intractable nausea and vomiting, bladder wall mass, cleared by Urology, altered mental status, diabetes, hypertension and hopefully, we will get cleared with blood cultures, urine cultures and labs tomorrow with Infectious Disease. Arcadio Chen DO [place]
[2017-04-30 19:55] LABS: VENOUS BLOOD GAS BASE EXCESS 3.2 mmol/L (0.0-2.0); VENOUS BLOOD PH 7.43 (7.32-7.43)
[2017-04-30] MEDS ORDERED: Morphine 2 mg/ml ISec IVP STA (20:49)
--- NOTE | 2017-04-30 21:07 | CON ---
HISTORY OF PRESENT ILLNESS: The patient is a 47-year-old -Cypriot female who is being followed by Psychiatry on the medical floor for altered mental status. I reviewed Dr. Romo's consultation note as well as staff note from the Unit. I also met with the patient at bedside early this morning. It appears that the patient has been requesting to leave against medical advice. She continues to demonstrate altered mental status during the course of my interview. The patient was unable to provide the correct month or location. She believes it was 10/2016 and that she was currently at [facility]. The patient could not verbalize the reasons for her hospitalization nor the course of her treatment during my questioning this morning. The patient reports that she is depressed and anxious; however, she denies having any suicidal thoughts or thoughts to harm others. The patient's focus is poor and her attention varies throughout questioning. The patient does not appear to be hallucinating and her responses are not always relevant to questioning. The patient indicated that she does want to leave the hospital and she cannot provide a rationale reason why she would like to be discharged. She indicated that she needs to care of business; however, cannot elaborate except to mention her family. The patient also reports that she has not been treated on the Unit which is inaccurate. When asked for the patient to elaborate on what she means by needing to be discharged for her family, she responds "clearly my son" and does not complete the thought. As of my interview, she does not appear to sufficiently understand nor she does have the memory to understand her current situation, her reason for admission, and consequences of leaving against medical advice, and she cannot provide a rationale reason to leave. This provider does not feel that she has capacity to leave at this time and requires further treatment, she would be a danger to herself due to her altered mental capacity. MEDICATIONS: Reviewed and current psychiatric medications include Haldol 5 mg p.o. b.i.d. p.r.n. as well as Ativan 0.5 mg IV q. 6 p.r.n. agitation. PHYSICAL EXAMINATION: Vital signs were reviewed by this provider. LABORATORY DATA: Reviewed by this provider. IMPRESSION: Delirium as well as depression and anxiety per the patient's history. Per Dr. Romo's note, the patient does have a history of cocaine use and it is unclear whether she has been in alcohol withdrawal. PLAN: My recommendations are to continue Haldol 5 mg p.o. b.i.d. to be taken with Ativan 1 mg p.o. or IM b.i.d. p.r.n. agitation. Continue Ativan q. 6 p.r.n. in case the patient is in withdrawal. Psychiatry will continue to follow up with the patient. At this time, the patient does not have capacity to leave [place] and we will monitor her mental status for any changes in this regard. Joseph Pina MD
[2017-04-30] MEDS: Insulin Detemir 100 units/ml Vial (Levemir) SC SCH (21:10)
[2017-04-30] MEDS ORDERED: Insulin Detemir 100 units/ml Vial (Levemir) SC SCH (22:00)
[2017-05-01] MEDS: Sodium Chloride 0.45% 1,000 ML IV SCH (03:38)
[2017-05-01] MEDS: Pantoprazole 40 mg EC Tab PO SCH (05:55)
[2017-05-01] MEDS: Insulin Lispro (humaLOG) MEDIUM Coverage SC SCH (07:39)
[2017-05-01 07:48] LABS: HEMATOCRIT 37.8 % (36.0-48.0); MEAN CELL VOLUME 84.4 fl (80.0-105.0); MEAN CORPUSCULAR HGB CONC 34.4 g/dl (31.0-37.0); MEAN PLATELET VOLUME 10.3 fl (7.0-11.0)
[2017-05-01] MEDS ORDERED: Sodium Chloride 0.9% 1,000 ML IV STA ×2 (08:10→08:26)
[2017-05-01 08:33] LABS: VENOUS BLOOD GAS BASE EXCESS 4.2 mmol/L (0.0-2.0); VENOUS BLOOD PH 7.46 (7.32-7.43)
[2017-05-01 08:41] LABS: ALB/GLOB RATIO 1.1 (1.1-1.8); BILIRUBIN,TOTAL 0.8 mg/dL (0.2-1.3); CALCIUM 9.1 mg/dL (8.4-10.5); POTASSIUM 3.9 mmol/L (3.6-5.0); TOTAL PROTEIN 6.9 g/dL (5.8-8.3)
[2017-05-01] MEDS ORDERED: Iohexol 350 MG/100 ML VIAL ONE (09:08)
[2017-05-01] MEDS ORDERED: Iohexol 240 (50 ml) ONE (09:29)
[2017-05-01 09:34] LABS: PH,URINE 5.5 (4.7-8.0); URINE BILIRUBIN NEGATIVE (NEGATIVE); URINE GLUCOSE (UA) >=1000 mg/dL (NEGATIVE); URINE KETONE NEGATIVE (NEGATIVE); URINE LEUKOCYTE ESTERASE NEGATIVE Leu/uL (NEGATIVE); URINE PROTEIN 30 mg/dL (<30 mg/dL); URINE UROBILINOGEN 0.2 E.U./dL (<1 E.U./dL)
[2017-05-01 09:37] LABS: URINE APPEARANCE CLEAR (CLEAR); URINE COLOR YELLOW (YELLOW)
[2017-05-01 09:40] LABS: URINE BLOOD MODERATE (NEGATIVE); URINE RBC 25 - 30 /hpf (0-2)
[2017-05-01 09:42] LABS: URINE BACTERIA RARE (NEG)
[2017-05-01] MEDS ORDERED: Meropenem 1g/NS 100mL IVPB 1 GM/100 ML PIGGYBACK IVPB SCH (10:00)
--- NOTE | 2017-05-01 10:22 | CP.PCM.PN ---
Addendum entered and electronically signed by Arleen Toscano DO 05/01/17 17:54 : Per IR Dr. Smart: Continue valle. No big drainable collection. Continue ABX. Dr. Smart will talk to Dr. Schwartz/Angeles. Dr Smart, repeat CT on Tuesday AM. He will be back on Tuesday. Original Note: <Arleen Toscano - Last Filed: 05/01/17 15:52> Subjective - Date & Time of Evaluation Date of Evaluation: 05/01/17 Time of Evaluation: 09:00 - Subjective Subjective: PGY-[address] Chen Lethargic. Only took Ativan mg PO at 6am T 99.9 WBC 18 Suprapubic pain worsened. Pt is not very cooperative in giving answers in addition to being lethargic, but easily arosable, aaox3 Objective - Vital Signs/Intake and Output Vital Signs (last 24 hours): Temp Pulse Resp BP Pulse Ox 97.6 F 91 H 18 124/90 94 L 05/01/17 08:00 05/01/17 08:00 05/01/17 08:00 05/01/17 08:00 05/01/17 08:00 Intake and Output: 05/01/17 05/01/17 06:59 18:59 Intake Total 360 Output Total 200 Balance 160 - Medications Medications: Current Medications Amlodipine Besylate (Norvasc) 5 mg PO DAILY [facility] Last Admin: 04/30/17 09:57 Dose: 5 mg Enoxaparin Sodium (Lovenox) 40 mg SC DAILY [facility] PRN Reason: Protocol Last Admin: 04/27/17 11:14 Dose: 40 mg Haloperidol (Haldol) 5 mg PO TID PRN; Protocol PRN Reason: agitation/psychosis Last Admin: 04/30/17 18:30 Dose: 5 mg Hydralazine HCl (Apresoline) 25 mg PO Q8H PRN PRN Reason: SBP > 180 Last Admin: 04/29/17 17:52 Dose: 25 mg Meropenem 1g/NS 100mL IVPB (Meropenem 1g/Ns 100ml Ivpb) 1 gm in 100 mls @ 100 mls/hr IVPB Q12 [facility] PRN Reason: Protocol Stop: 05/01/17 10:59 Linezolid (Zyvox 600mg/300ml D5w) 600 mg in 300 mls @ 200 mls/hr IVPB Q12 [facility] PRN Reason: Protocol Stop: 05/09/17 10:01 Potassium Chloride 10 meq/ (Sodium Chloride) 1,005 mls @ 100 mls/hr IV .Q10H3M [facility] Insulin Detemir (Levemir) 10 unit SC HS [facility] Last Admin: 04/30/17 21:10 Dose: 10 unit Lisinopril (Zestril) 10 mg PO DAILY [facility] Last Admin: 04/30/17 09:57 Dose: 10 mg Lorazepam (Ativan) 0.5 mg IVP Q6 [facility] PRN Reason: Protocol Last Admin: 05/01/17 00:59 Dose: Not Given Lorazepam (Ativan) 1 mg PO TID PRN; Protocol PRN Reason: Psychosis Last Admin: 05/01/17 05:54 Dose: 1 mg Metronidazole (Flagyl) 500 mg PO Q8 [facility] Last Admin: 05/01/17 05:54 Dose: 500 mg Morphine Sulfate (Morphine) 1 mg IVP Q4 PRN PRN Reason: Pain, severe (8-10) Nicotine (Nicoderm Cq) 1 patch TD DAILY [facility] Last Admin: 04/30/17 09:55 Dose: 1 patch Ondansetron HCl (Zofran Inj) 4 mg IVP Q6 PRN PRN Reason: Nausea/Vomiting Last Admin: 04/30/17 21:11 Dose: 4 mg Ondansetron HCl (Zofran Inj) 4 mg IVP ONCE PRN PRN Reason: Nausea/Vomiting Pantoprazole Sodium (Protonix Ec Tab) 40 mg PO 0600 [facility] Last Admin: 05/01/17 05:55 Dose: 40 mg - Labs Labs: 05/01/17 06:50 05/01/17 06:50 PT 10.8 Seconds (9.9-11.8) 04/28/17 10:30 INR 1.00 (0.93-1.08) 04/28/17 10:30 APTT 28.7 Seconds (23.7-30.8) 04/27/17 06:00 - Constitutional Appears: Other (lethargic) - Head Exam Head Exam: ATRAUMATIC, NORMAL INSPECTION, NORMOCEPHALIC - Eye Exam Eye Exam: EOMI, Normal appearance, PERRL. absent: Scleral icterus Additional comments: 4mm b/l - ENT Exam ENT Exam: Mucous Membranes Moist - Neck Exam Additional comments: supple - Respiratory Exam Respiratory Exam: Clear to Ausculation Bilateral, NORMAL BREATHING PATTERN. absent: Rales, Rhonchi, Wheezes - Cardiovascular Exam Cardiovascular Exam: Tachycardia, REGULAR RHYTHM, +S1, +S2 - GI/Abdominal Exam GI & Abdominal Exam: Soft, Hypoactive Bowel Sounds. absent: Distended, Firm, Guarding, Rigid, Tenderness, Rebound Additional comments: (+) suprapubic pain - Extremities Exam Extremities Exam: Normal Capillary Refill. absent: Calf Tenderness, Pedal Edema - Back Exam Back Exam: absent: CVA tenderness (L), CVA tenderness (R) - Neurological Exam Neurological Exam: Awake, Oriented x3 - Psychiatric Exam Psychiatric exam: Agitated (Agitation improves from yesterday), Normal Affect - Skin Skin Exam: Dry, Normal Color, Warm Assessment and Plan - Assessment and Plan (Free Text) Plan: 47 with PMH of DM 2, Hx H. pylori PUD (unknown whether triple therapy), and questionable Xanax abuse (per pharmacy record) presented at [facility] on 04/28 for intractable vomiting, NBNB diarrhea, and epigastic abdominal pain radiating throughout her abdomen. She denies any recent travel, sick contacts. On admission, pt had pin-point pupils with lethargy. UDS (+) cannabinoid. Negative benzo. Pt has a mid-line placement for difficult vascular access. Her GI symptoms resolved on flagyl PO. CT abdomen and pelvis (04/26) showed an incidental finding of a 1.4 cm lesion on R bladder wall and a renal cyst. Pt underwent cystoscopy with transurethral resection of bladder tumor on 04/29 (POD # 2). POD #0: After procedure, patient wanted to leave and became violent. Tiana rey was called. POD #1: Patient mentation swiftly fluctuated, from AAOx1 to AAOx3. Delirium suspected. Septic work up initiated. Pt attempted to elope with mid-line in place, unsuccessful. Code rey x 3. WBC 12.5. Tmax 99.9. valle removed. POD #2: Pt became lethargic. Valle was placed, 300cc dark casie urine drained. WBC 18. Persistent sinus tachycardia was noticed. CT abdomen/pelvis with PO contrast showed (1) ground glass bilateral pulmonary opacity, vascular congestion vs infection. (2) Phlegmon/abscess at extraperiotoneal R pelvic side wall. Moderate pelvic fluid and extensive inflammatory stranding. Extensive gas at extraperitoneal space and retroperotpneal space in psos. Upgraded ABX. A/P Pt has an adrupt mentation changes with leukocytosis and sinus tachycardia likely due to sepsis secondary to extraperitoneal inflammation s/p TURB. Dr. Reynoso called and instructed: repeat CT abdomen and pelvis tomorrow. Continue valle at least for 1 week. Continue antibiotics. Trend fever curve, WBC, and continue monitor clinical response. Sepsis, likely from extraperitoneal abscess. R/O other infection. Unlikely catheter-related UTI. Unlikely gastroenteritits Persistent sinus tachycardia WBC 18 (12.5). Tmax 99.9 Lactacte 2.4 yesterday, trending down to 1 - ID on board - Flagyl PO (day 5), Linezolid (day 1), Meropenem (day 1) - Blood culture (04/30) = negative x 1 day - urine culture (04/30) = pending - U/A neg UTI - Pending FTA-ABS, HIV-Ag/Ab, procalc, RPR Persistent sinus tachycardia - EKG (05/01): Sinus 109. no ST/TW changes. QTc 474 - Pending LE b/l U/S to rule out DVT. Thereby unlikely PE. Extraperitoneal inflammation with possible abscess - Surgery: Unlikely intra-abdominal organ perforation. No surgery needed. - IR consulted for possible drainage Delirium r/o medical etiology Agitation Failed Elopement attempt (with mid-line) Questionable xanax abuse and withdrawal - seizure precaution - on 1:1 - As of today, per psych: no capacity to leave AMA. No psych clearance to discharge home - Ativan 0.5mg IV q6 [facility] - Per Dr. Pina, Give ativan 1 and haldol 5 PO together PRN. Wait up to 1- 2 hours for response. - Head CT reviewed- No intracranial mass, hemorrhage or evidence of acute infarct. - TSH normal Bladder wall mass, s/p TURB Renal Cyst - CT abd impression: 1.4 cm high attenuation lesion along the right bladder wall. Exophytic left upper pole renal cortical cyst. - Cystoscopy (04/29): 2.5 cm papillary bladder tumor on R superior lateral wall, no satellite lesions - F/u with Dr. Reynoso outpatient - Pending pathology report Gastroenteritis Intractable vomiting and abd pain - resolved details- CT abd (04/28) Sigmoid diverticulosis without evidence of diverticulitis. Diabetes Mellitis, pending A1C - hold home med - Levemir 10 HS, ISSS-high ACHS, accucheck ACHS HTN - started amlodipine 5 qd, lisinopril 10 qd. PRN hydralazine - find secondary causes- renal artery duplex reviewed- 1. The main renal arteries are fairly well visualized. 2. No sonographically significant stenosis is identified. 3. The kidneys are normal and symmetric in size. 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 HHD+carb const. R arm Midline Disposition Planning - Not yet - [facility] screening eval as needed after medically cleared Consult: ID = Dr. Dahl Urol = Dr. Schwartz IR = Dr. Smart Psych = Dr. Romo Surgery = Dr. Manning S/R/D/w Dr. Chen <Arcadio Chen S - Last Filed: 05/02/17 10:13> Subjective - Subjective Subjective: went ovrr at length w/ the resident Objective - Vital Signs/Intake and Output Vital Signs (last 24 hours): Temp Pulse Resp BP Pulse Ox 98.0 F 93 H 20 124/75 97 05/02/17 07:54 05/02/17 09:21 05/02/17 07:54 05/02/17 09:21 05/02/17 07:54 - Medications Medications: Current Medications Acetaminophen (Tylenol 325mg Tab) 650 mg PO Q6H PRN PRN Reason: Fever >100.4 F Last Admin: 05/01/17 17:37 Dose: 650 mg Amlodipine Besylate (Norvasc) 5 mg PO DAILY [facility] Last Admin: 05/02/17 09:21 Dose: 5 mg Heparin Sodium (Porcine) (Heparin) 5,000 units SC Q12 [facility] PRN Reason: Protocol Last Admin: 05/02/17 09:20 Dose: 5,000 units Hydralazine HCl (Apresoline) 25 mg PO Q8H PRN PRN Reason: SBP > 180 Last Admin: 04/29/17 17:52 Dose: 25 mg Linezolid (Zyvox 600mg/300ml D5w) 600 mg in 300 mls @ 200 mls/hr IVPB Q12 [facility] PRN Reason: Protocol Stop: 05/09/17 10:01 Last Admin: 05/02/17 09:19 Dose: 200 mls/hr Potassium Chloride 10 meq/ (Sodium Chloride) 1,005 mls @ 100 mls/hr IV .Q10H3M [facility] Last Admin: 05/01/17 21:01 Dose: 100 mls/hr Meropenem 1g/NS 100mL IVPB (Meropenem 1g/Ns 100ml Ivpb) 1 gm in 100 mls @ 100 mls/hr IVPB Q12 [facility] PRN Reason: Protocol Stop: 05/10/17 22:01 Last Admin: 05/01/17 21:00 Dose: 100 mls/hr Insulin Detemir (Levemir) 10 unit SC HS [facility] Last Admin: 05/01/17 21:04 Dose: Not Given Insulin Human Lispro (Humalog High) 0 units SC ACHS [facility] PRN Reason: Protocol Last Admin: 05/02/17 08:34 Dose: 4 units Lisinopril (Zestril) 10 mg PO DAILY [facility] Last Admin: 05/02/17 09:20 Dose: 10 mg Lorazepam (Ativan) 0.5 mg IVP Q6 [facility] PRN Reason: Protocol Last Admin: 05/02/17 06:22 Dose: Not Given Lorazepam (Ativan) 1 mg PO TID PRN; Protocol PRN Reason: Psychosis Last Admin: 05/01/17 23:29 Dose: 1 mg Metronidazole (Flagyl) 500 mg PO Q8 [facility] Last Admin: 05/02/17 06:21 Dose: 500 mg Nicotine (Nicoderm Cq) 1 patch TD DAILY [facility] Last Admin: 05/02/17 08:43 Dose: 1 patch Ondansetron HCl (Zofran Inj) 4 mg IVP Q6 PRN PRN Reason: Nausea/Vomiting Last Admin: 04/30/17 21:11 Dose: 4 mg Pantoprazole Sodium (Protonix Ec Tab) 40 mg PO 0600 [facility] Last Admin: 05/02/17 06:21 Dose: 40 mg - Labs Labs: 05/02/17 08:00 05/02/17 08:00 PT 11.5 Seconds (9.9-11.8) 05/01/17 10:30 INR 1.06 (0.93-1.08) 05/01/17 10:30 APTT 32.2 Seconds (23.7-30.8) H 05/01/17 10:30
[2017-05-01] MEDS: Linezolid 600 mg in D5W 300 ml 600 MG/300 ML BAG IVPB SCH ×2 (11:10→22:46)
[2017-05-01 11:17] LABS: D DIMER 0.96 mg/L FEU (0-0.50); INR 1.06 (0.93-1.08); PARTIAL THROMBOPLASTIN TIME 32.2 Seconds (23.7-30.8)
--- NOTE | 2017-05-01 12:34 | CON ---
DATE: 05/01/2017 The patient is in bed in room 571, bed 1. CHIEF COMPLAINT: Elevated WBC x1 day. HISTORY OF PRESENT ILLNESS: This is a 47-year-old female with history of diabetes mellitus, history of H. pylori, alcohol abuse, substance abuse, who was admitted on 04/26/2017 with a diagnoses of vomiting and found to have urinary bladder right wall mass, had a procedure by urology, a cystoscopy, and a biopsy of the mass on the 1st by Dr. John Schwartz and yesterday patient had low-grade fevers, had become more confused and agitated and wanted to sign out AMA. This morning, I am called to see patient because of fever and increasing white count and patient was given Ativan and is mildly sedated, unable to give accurate history. PAST MEDICAL HISTORY: Significant for H. pylori, diabetes mellitus, alcohol abuse, and substance abuse. PAST SURGICAL HISTORY: Noncontributory. ALLERGIES: PATIENT HAS NO KNOWN ALLERGIES. MEDICATIONS AT HOME: Include Xanax, oxycodone, Percocet, metformin, Norvasc, and lisinopril. REVIEW OF SYSTEMS: She is having lower abdomen and pelvic pain. There is low grade fever reported. There is no nausea or vomiting. No cough and no chest pain reported. No dysuria or frequency reported. Nurse caring for the patient gives most of the information. PHYSICAL EXAMINATION GENERAL: She is in bed. VITAL SIGNS: Temperature of 99.9, blood pressure is 140/80. She generally runs higher blood pressures and respiratory rate of 20, heart rate of 111, patient saturation at 94% on room air. HEENT: Reveals unremarkable. NECK: Supple. LUNGS: Decreased breath sounds bilaterally. HEART: Normal S1 and S2. ABDOMEN: Mild tenderness in the right lower pelvic area, mild tenderness of left lower pelvic area. There is no rebound. No guarding. No masses. LABORATORY DATA: Reveals a white count of 18,000, hemoglobin of 13, platelets of 241. There is no differential on the white count. Coagulation is noted to be normal and chemistry reveals of BUN of 22, creatinine is up to 1.1, last creatinine before that was 0.8 yesterday and random glucose is 278. LFTs are normal and urinalysis reveals slightly cloudy urine. There is 100 protein, there is glucose, large blood, and small leukocyte esterase, too numerous to count RBC's and 2 to 5 WBC's and hCG is negative and small bacteria. Toxicology reveals a positive cannabinoids screen and patient's CAT on admission from is reviewed and the bladder mass is described. The OR note is reviewed from 04/29/2017 and pathology report from the OR is not available at this time. ASSESSMENT AND PLAN: This is a 47-year-old female with history of H. pylori, alcohol abuse, substance abuse admitted with abdominal discomfort, found to have urinary bladder mass, had a cystoscopy and a biopsy, now postop day #2 with tachycardia, leukocytosis, systemic inflammatory response syndrome, must rule out complications of the procedure and must also rule out healthcare associated pneumonia versus nosocomial urinary tract infection in phase of acute kidney injury. We will start the patient on Zyvox and meropenem, order a stat scan of the chest, stat scan of the abdomen and pelvis with p.o. contrast since his renal function is compromised, blood cultures, urine cultures. We will order a procalcitonin, HIV, and we recommend urology reevaluation and we will maker further recommendations based on initial result. Case discussed with Dr. Arcadio Chen this morning, who is covering for Dr. Altaf Peguero. I will call Dr. Juan Reynoso, the Urology is requesting reevaluation this morning and review of the CAT scan. Discussed the case with Marzena, the nurse and requesting the CAT scan this a.m. Harinder Dahl MD
--- NOTE | 2017-05-01 13:24 | CT ---
CT chest without IV contrast Indication: Sepsis Technique: Contiguous axial images were obtained through the chest without intravenous contrast enhancement. Sagittal and coronal reconstructions were generated and reviewed. This CT exam was performed using 1 or more of the falling dose reduction techniques: Automated exposure control, adjustment of the MAA and/or kV according to patient size, and/or use of iterative reconstruction technique. Radiation dose (DLP): 1230.20 MGy-cm. Comparison: CT abdomen and pelvis with IV contrast performed 04/26/17 Findings: Examination limited by patient motion/streak artifact. Lack of IV contrast limits evaluation of the solid organs. Visualized portions of the inferior thyroid gland appear enlarged. The mediastinal and hilar vascular structures appear within normal limits. The heart appears within normal limits of size. Hazy, ground-glass bilateral pulmonary opacities. No focal consolidation. No pleural effusion. No pneumothorax. 9 mm fat containing umbilical hernia. Hepatomegaly. The noncontrast spleen, kidneys, pancreas, adrenal glands, and gallbladder appear unremarkable. Nonobstructive bowel gas pattern. Limited visualization of the appendix appears within normal limits of caliber. Extensive gas within the extraperitoneal space, along the right pelvic sidewall, and the retroperitoneal space deep to the psoas muscle. Interval development of moderate pelvic fluid and extensive inflammatory stranding. The urinary bladder appears thick walled and decompressed with a Cervantes catheter present. Air is seen within the urinary bladder. Evidence of phlegmon/ abscess formation at the level the right pelvic sidewall approaching the direction of the urinary bladder. The uterus is present. No acute osseous abnormality is detected. Impression: Hazy, ground-glass bilateral pulmonary opacities. Correlate for vascular congestion. Infection is not excluded. Extensive gas within the extraperitoneal space, along the right pelvic sidewall, and the retroperitoneal space deep to the psoas muscle. Interval development of moderate pelvic fluid and extensive inflammatory stranding. The urinary bladder appears thick walled and decompressed with a Cervantes catheter present. Air is seen within the urinary bladder. Evidence of phlegmon/ abscess formation at the level the right pelvic sidewall approaching the direction of the urinary bladder. Correlate clinically for possibility of spontaneous abscess, recent instrumentation, possible urinary bladder etiologies, etc. Additional findings as above. Emergent findings discussed with the patient's RN Marzena on 05/01/17 at [id number]
--- NOTE | 2017-05-01 15:25 | CP.PCM.CON ---
History of Present Illness - History of Present Illness History of Present Illness: Consult note for Dr. Manning 47F presented with abdominal pain, intractable vomiting, NBNB diarrhea, patient had TURB procedure POD#2. Patient has wavering signs of altered mental status per Medicine team. PT was found to be Xanax and percocet dependent. Patient tried to leave yesterday. maury alejandro was called. Ativan is being used BID for sedation. Surgery was called because free air was found on CT in the right pelvic region. PT S&E at bedside. Patient sedated by ativan. Patient was able to wake up to speak about her pain. Patient admitted to pain on palpation of RLQ. denied other areas of abdominal pain. Patient denies F/C, N/V. Past Patient History - Infectious Disease Hx of Infectious Diseases: None - Past Social History Smoking Status: Unknown If Ever Smoked - ENDOCRINE/METABOLIC Hx Diabetes Mellitus Type 2: Yes - HEMATOLOGICAL/ONCOLOGICAL Hx Blood Transfusions: No Hx Blood Transfusion Reaction: No - MUSCULOSKELETAL/RHEUMATOLOGICAL Hx Falls: No - PSYCHIATRIC Hx Substance Use: Yes - SURGICAL HISTORY Hx Surgeries: No - ANESTHESIA Hx Anesthesia Reactions: No Hx Malignant Hyperthermia: No Meds Home Medications: Home Medication List Medication Instructions Recorded Confirmed Type Lisinopril [Zestril] 10 mg PO DAILY #30 tab 04/30/17 Rx amLODIPine [Norvasc] 5 mg PO DAILY #30 tab 04/30/17 Rx metroNIDAZOLE [Flagyl] 500 mg PO Q8 #15 tab 04/30/17 Rx Allergies/Adverse Reactions: Allergies Allergy/AdvReac Type Severity Reaction Status Date / Time No Known Allergies Allergy Verified 04/26/17 13:58 - Medications Medications: Current Medications Amlodipine Besylate (Norvasc) 5 mg PO DAILY [facility] Last Admin: 05/01/17 11:09 Dose: 5 mg Haloperidol (Haldol) 5 mg PO TID PRN; Protocol PRN Reason: agitation/psychosis Last Admin: 04/30/17 18:30 Dose: 5 mg Heparin Sodium (Porcine) (Heparin) 5,000 units SC Q12 CHRISTY PRN Reason: Protocol Hydralazine HCl (Apresoline) 25 mg PO Q8H PRN PRN Reason: SBP > 180 Last Admin: 04/29/17 17:52 Dose: 25 mg Linezolid (Zyvox 600mg/300ml D5w) 600 mg in 300 mls @ 200 mls/hr IVPB Q12 CHRISTY PRN Reason: Protocol Stop: 05/09/17 10:01 Last Admin: 05/01/17 11:10 Dose: 200 mls/hr Potassium Chloride 10 meq/ (Sodium Chloride) 1,005 mls @ 100 mls/hr IV .Q10H3M [facility] Last Admin: 05/01/17 11:08 Dose: 100 mls/hr Meropenem 1g/NS 100mL IVPB (Meropenem 1g/Ns 100ml Ivpb) 1 gm in 100 mls @ 100 mls/hr IVPB Q12 CHRISTY PRN Reason: Protocol Stop: 05/10/17 22:01 Insulin Detemir (Levemir) 10 unit SC HS [facility] Last Admin: 04/30/17 21:10 Dose: 10 unit Lisinopril (Zestril) 10 mg PO DAILY [facility] Last Admin: 05/01/17 11:08 Dose: 10 mg Lorazepam (Ativan) 0.5 mg IVP Q6 [facility] PRN Reason: Protocol Last Admin: 05/01/17 00:59 Dose: Not Given Lorazepam (Ativan) 1 mg PO TID PRN; Protocol PRN Reason: Psychosis Last Admin: 05/01/17 05:54 Dose: 1 mg Metronidazole (Flagyl) 500 mg PO Q8 [facility] Last Admin: 05/01/17 05:54 Dose: 500 mg Morphine Sulfate (Morphine) 1 mg IVP Q4 PRN PRN Reason: Pain, severe (8-10) Nicotine (Nicoderm Cq) 1 patch TD DAILY [facility] Last Admin: 05/01/17 11:10 Dose: 1 patch Ondansetron HCl (Zofran Inj) 4 mg IVP Q6 PRN PRN Reason: Nausea/Vomiting Last Admin: 04/30/17 21:11 Dose: 4 mg Ondansetron HCl (Zofran Inj) 4 mg IVP ONCE PRN PRN Reason: Nausea/Vomiting Pantoprazole Sodium (Protonix Ec Tab) 40 mg PO 0600 [facility] Last Admin: 05/01/17 05:55 Dose: 40 mg Physical Exam - Constitutional Appears: Non-toxic - Head Exam Head Exam: NORMAL INSPECTION - Eye Exam Eye Exam: EOMI, Normal appearance - ENT Exam ENT Exam: Mucous Membranes Moist - Neck Exam Neck exam: Positive for: Full Rom - Respiratory Exam Respiratory Exam: NORMAL BREATHING PATTERN. absent: Accessory Muscle Use, Prolonged Expiratory Phase, Respiratory Distress - Cardiovascular Exam Cardiovascular Exam: REGULAR RHYTHM. absent: Bradycardia, Tachycardia - GI/Abdominal Exam GI & Abdominal Exam: Soft, Tenderness Additional comments: right lower quadrant pain to deep palpation. no rebound tenderness negative for rovsing negative [email or web address] Results - Vital Signs Recent Vital Signs: Last Vital Signs Temp 97.6 F 05/01/17 08:00 Pulse 109 H 05/01/17 11:09 Resp 18 05/01/17 08:00 BP 147/93 H 05/01/17 11:09 Pulse Ox 94 L 05/01/17 08:00 - Labs Result Diagrams: 05/01/17 06:50 05/01/17 06:50 Labs: Laboratory Results - last 24 hr 04/30/17 04/30/17 04/30/17 07:30 15:30 16:06 WBC RBC Hgb Hct MCV MCH MCHC RDW Plt Count MPV PT INR APTT D-Dimer, Quantitative pO2 62 H VBG pH 7.43 VBG pCO2 42.0 VBG HCO3 27.9 VBG Total CO2 29.2 H VBG O2 Sat (Calc) 94.0 H VBG Base Excess 3.2 H VBG Potassium 4.0 Sodium 134.0 Chloride 98.0 Glucose 359 H Lactate 1.8 FiO2 21.0 Potassium Carbon Dioxide Anion Gap BUN Creatinine Est GFR ( Amer) Est GFR (Non-Af Amer) POC Glucose (mg/dL) 257 H Random Glucose Calcium Total Bilirubin AST ALT Alkaline Phosphatase Total Protein Albumin Globulin Albumin/Globulin Ratio Venous Blood Potassium 4.0 Urine Color Yellow Urine Appearance Sl cloudy Urine pH 6.0 Ur Specific Tina 1.015 Urine Protein 100 H Urine Glucose (UA) 100 H Urine Ketones Negative Urine Blood Large H Urine Nitrate Negative Urine Bilirubin Negative Urine Urobilinogen 0.2 Ur Leukocyte Esterase Small H Urine RBC Tntc Urine WBC 2 - 5 Ur Epithelial Cells 1 - 3 Urine Bacteria Small Urine HCG, Qual 04/30/17 05/01/17 05/01/17 20:59 06:50 06:50 WBC 18.0 H D RBC 4.48 Hgb 13.0 Hct 37.8 MCV 84.4 MCH 29.0 MCHC 34.4 RDW 13.0 Plt Count 241 MPV 10.3 PT INR APTT D-Dimer, Quantitative pO2 VBG pH VBG pCO2 VBG HCO3 VBG Total CO2 VBG O2 Sat (Calc) VBG Base Excess VBG Potassium Sodium 130 L Chloride 96 Glucose Lactate FiO2 Potassium 3.9 Carbon Dioxide 26 Anion Gap 12 BUN 22 H Creatinine 1.2 Est GFR ( Amer) 58 Est GFR (Non-Af Amer) 48 POC Glucose (mg/dL) 359 H Random Glucose 278 H Calcium 9.1 Total Bilirubin 0.8 AST 36 D ALT 37 Alkaline Phosphatase 108 Total Protein 6.9 Albumin 3.7 Globulin 3.3 Albumin/Globulin Ratio 1.1 Venous Blood Potassium Urine Color Urine Appearance Urine pH Ur Specific Tina Urine Protein Urine Glucose (UA) Urine Ketones Urine Blood Urine Nitrate Urine Bilirubin Urine Urobilinogen Ur Leukocyte Esterase Urine RBC Urine WBC Ur Epithelial Cells Urine Bacteria Urine HCG, Qual 05/01/17 05/01/17 05/01/17 08:20 09:23 09:23 WBC RBC Hgb Hct MCV MCH MCHC RDW Plt Count MPV PT INR APTT D-Dimer, Quantitative pO2 63 H VBG pH 7.46 H VBG pCO2 40.0 VBG HCO3 28.4 H VBG Total CO2 29.6 H VBG O2 Sat (Calc) 94.9 H VBG Base Excess 4.2 H VBG Potassium 3.9 Sodium 131.0 L Chloride 96.0 L Glucose 301 H Lactate 1.0 FiO2 21.0 Potassium Carbon Dioxide Anion Gap BUN Creatinine Est GFR ( Amer) Est GFR (Non-Af Amer) POC Glucose (mg/dL) Random Glucose Calcium Total Bilirubin AST ALT Alkaline Phosphatase Total Protein Albumin Globulin Albumin/Globulin Ratio Venous Blood Potassium 3.9 Urine Color Yellow Urine Appearance Clear Urine pH 5.5 Ur Specific Tina <= 1.005 Urine Protein 30 H Urine Glucose (UA) >=1000 Urine Ketones Negative Urine Blood Moderate H Urine Nitrate Negative Urine Bilirubin Negative Urine Urobilinogen 0.2 Ur Leukocyte Esterase Negative Urine RBC 25 - 30 Urine WBC 2 - 5 Ur Epithelial Cells 6 - 8 Urine Bacteria Rare Urine HCG, Qual Negative 05/01/17 10:30 WBC RBC Hgb Hct MCV MCH MCHC RDW Plt Count MPV PT 11.5 INR 1.06 APTT 32.2 H D-Dimer, Quantitative 0.96 H pO2 VBG pH VBG pCO2 VBG HCO3 VBG Total CO2 VBG O2 Sat (Calc) VBG Base Excess VBG Potassium Sodium Chloride Glucose Lactate FiO2 Potassium Carbon Dioxide Anion Gap BUN Creatinine Est GFR ( Amer) Est GFR (Non-Af Amer) POC Glucose (mg/dL) Random Glucose Calcium Total Bilirubin AST ALT Alkaline Phosphatase Total Protein Albumin Globulin Albumin/Globulin Ratio Venous Blood Potassium Urine Color Urine Appearance Urine pH Ur Specific Tina Urine Protein Urine Glucose (UA) Urine Ketones Urine Blood Urine Nitrate Urine Bilirubin Urine Urobilinogen Ur Leukocyte Esterase Urine RBC Urine WBC Ur Epithelial Cells Urine Bacteria Urine HCG, Qual Assessment & Plan - Assessment and Plan (Free Text) Assessment: 47F presents with vomiting, diarrhea and abdominal pain s/p TURB POD#2 Plan: will follow with urology recommendations c/w with current medical management. c/w with Dr. Dawkins's recommendations for abx - Date & Time Date: 05/01/17 Time: 15:25
--- NOTE | 2017-05-01 16:12 | US ---
HISTORY: Leg pain and swelling. Evaluate for DVT PHYSICIAN(S): Niko Smart MD. TECHNIQUE: Duplex sonography and color-flow Doppler with graded compression were used to evaluate the deep venous systems of both lower extremities. The exam is somewhat limited by edema. FINDINGS: The visualized deep venous systems of both lower extremities are sonographically normal and compressible. Normal wave forms and augmentation are seen. There is no sonographic evidence for deep venous thrombosis in the visualized segments of both lower extremities. IMPRESSION: No sonographic evidence for deep venous thrombosis in the visualized segments of both lower extremities.
[2017-05-01] MEDS ORDERED: Insulin Lispro 1 UNITS/0.01 ML SC ONE (17:00)
--- NOTE | 2017-05-01 18:41 | CON ---
HISTORY OF PRESENT ILLNESS: The patient is a 47-year-old -[place] female and she is being followed by psychiatry on the medical floor for altered mental status secondary to delirium. I reviewed Dr. Romo's consultation note as well as staff note from the unit and has spoken to nursing as well as treatment providers regarding the patient's behavior, which appears to be related to her delirious state. The patient continues to demonstrate altered mental status in a course of my interview today. She was unable to again provide the correct month or location, even though she was surprised that she was at [facility], not [facility]. She is not able to provide any information about the reason for her hospitalization, and she appears quite sedated this morning. The patient has been uncooperative with treatment team and has requested leave the hospital on multiple occasions; however, cannot give the rationale reason for wanting to leave and her insight and judgment considered to still be impaired in this respect. As of my interview this morning, she does not still appear to sufficiently understand or has a memory to understand her current situation. Her reason for admission and consequences of leaving against medical advice, and she still cannot provide a rationale reason to leave. Her sensorium is fluctuating consistent with delirium and she is not psychiatrically cleared at this time due to her medical issues. Laboratory data and vital signs were reviewed by this provider. MEDICATIONS: Psychiatric medications include Haldol 5 mg p.o. t.i.d. p.r.n., which the patient received 2 doses yesterday to be taken with Ativan 1 mg p.o. t.i.d. p.r.n. Of which, the patient received 3 doses yesterday and one dose this morning as well as Ativan 0.5 mg IV q. 6 scheduled. IMPRESSION: Delirium, depression, anxiety per history. RECOMMENDATIONS: We will continue with current treatment and plan. Haldol and Ativan p.r.n. for the patient's agitation. Please note that Ativan was also started standing IV q.6 h. as the patient might be withdrawing from Xanax, which was prescribed prior to admission, please taper as tolerated. As right now, the patient does not have capacity to sign out AMA due to current medical delirious state. Psychiatry will continue to follow up with the patient on the unit and monitor daily. Joseph Pina MD [facility] # [id number]
--- NOTE | 2017-05-01 19:35 | PN ---
DATE: 05/01/2017 The patient's Cervantes was removed yesterday. According to nurses, she has been voiding and had voided [address] Dahl saw her for an increased white count of 18,000. She was afebrile and was complaining of some suprapubic pain. I came in, the nurse under my supervision placed the Cervantes catheter, 300 mL drained of clear casie urine. A CAT scan is being ordered to make sure no other pathology is going on. The bladder seems to be intact. She did report her pain easing off a bit after the Cervantes catheter was placed. Her urine culture with no growth, and if the CAT scan is negative without any free fluid, would not think this is urologic in origin. Another urine culture has been ordered, and she currently is on no antibiotics. I will speak with ID about whether he wants her covered. Her abdomen had no rebound, and she had some mild suprapubic guarding. Juan Reynoso MD
--- NOTE | 2017-05-01 19:47 | PN ---
SUBJECTIVE: I saw her in bed. She was medicated. She also has one-to-one on. She had a couple of code cristian yesterday trying to exit the hospital. We were trying to get her with psychiatry to a screening which was in medical center, but she was not medically cleared. I thought the 12,000 white count yesterday could have been a symptom of something, and I kept her and today. It popped up to an 18,000; called on infectious disease and now she is on IV antibiotics. PHYSICAL EXAMINATION: VITAL SIGNS: She did have a 99.9 temperature last night, it came down to 97.6; 91 pulse; 124/90 blood pressure; 18 respiratory rate; 94% O2 sat on room air. GENERAL: She is very upset, disgusted about being here and she is sedated. HEENT: Head is atraumatic and normocephalic. HEART: Regular rate. LUNGS: Decreased breath sounds but clear. ABDOMEN: At this time is soft. Positive bowel sounds. EXTREMITIES: No edema. MEDICATIONS: She is now on Apresoline, Ativan, Flagyl, Haldol, Levemir, Lovenox, Merrem I.V., morphine for pain as needed, Nicoderm, Norvasc, Protonix, Zestril, Zofran and Zyvox. LABORATORY DATA: Her white count was 12.5 yesterday, got worried about that, could not medically clear for psychiatry eval and it bounced to 18,000 today. She has 13 hemoglobin, 37.8 hematocrit with 241 platelets. She has 130 sodium, potassium 3.9, BUN 22, creatinine 1.2, GFR is 48, sugar is 278, calcium is 9.1. Total bili is 0.8, AST is 36, ALT is 37, alk phos 108, total protein 6.9. Urine showed rare bacteria, negative . She was positive for marijuana. She is being seen by multiple physicians; infectious disease, urology, psychiatry. We asked urology to take down a look at her and she will be on IV antibiotics for sepsis, and we are not discharging her. She will on one-to-one until we could get her medically cleared and more stable, and then we will consider psychiatric inpatient. The patient has septic bladder tumor, multiple psychiatric dysfunctions. Arcadio Chen DO [facility] # [id number]
[2017-05-01] MEDS: Meropenem 1g/NS 100mL IVPB 1 GM/100 ML PIGGYBACK IVPB SCH (21:00)
[2017-05-01] MEDS: Insulin Lispro (HUMAlog) HIGH Coverage SC SCH (21:03)
[2017-05-01] MEDS: Insulin Detemir 100 units/ml Vial (Levemir) SC SCH (21:04)
[2017-05-02] MEDS: Pantoprazole 40 mg EC Tab PO SCH (06:21)
--- NOTE | 2017-05-02 06:46 | CP.PCM.PN ---
Subjective - Date & Time of Evaluation Date of Evaluation: 05/02/17 Time of Evaluation: 06:42 - Subjective Subjective: SURGERY NOTE FOR DR. SPENCER 47F seen and examined at bedside. Patient doing much better today. Denies abdominal pain, nausea, vomiting. Valle catheter with clear urine output. Objective - Vital Signs/Intake and Output Vital Signs (last 24 hours): Temp Pulse Resp BP Pulse Ox 101.4 F H 109 H 18 147/93 H 94 L 05/01/17 18:37 05/01/17 11:09 05/01/17 08:00 05/01/17 11:09 05/01/17 08:00 - Medications Medications: Current Medications Acetaminophen (Tylenol 325mg Tab) 650 mg PO Q6H PRN PRN Reason: Fever >100.4 F Last Admin: 05/01/17 17:37 Dose: 650 mg Amlodipine Besylate (Norvasc) 5 mg PO DAILY [facility] Last Admin: 05/01/17 11:09 Dose: 5 mg Haloperidol (Haldol) 5 mg PO TID PRN; Protocol PRN Reason: agitation/psychosis Last Admin: 04/30/17 18:30 Dose: 5 mg Heparin Sodium (Porcine) (Heparin) 5,000 units SC Q12 [facility]STY PRN Reason: Protocol Last Admin: 05/01/17 21:01 Dose: 5,000 units Hydralazine HCl (Apresoline) 25 mg PO Q8H PRN PRN Reason: SBP > 180 Last Admin: 04/29/17 17:52 Dose: 25 mg Linezolid (Zyvox 600mg/300ml D5w) 600 mg in 300 mls @ 200 mls/hr IVPB Q12 CHRISTY PRN Reason: Protocol Stop: 05/09/17 10:01 Last Admin: 05/01/17 22:46 Dose: 200 mls/hr Potassium Chloride 10 meq/ (Sodium Chloride) 1,005 mls @ 100 mls/hr IV .Q10H3M [facility] Last Admin: 05/01/17 21:01 Dose: 100 mls/hr Meropenem 1g/NS 100mL IVPB (Meropenem 1g/Ns 100ml Ivpb) 1 gm in 100 mls @ 100 mls/hr IVPB Q12 [facility]STY PRN Reason: Protocol Stop: 05/10/17 22:01 Last Admin: 05/01/17 21:00 Dose: 100 mls/hr Insulin Detemir (Levemir) 10 unit SC HS [facility] Last Admin: 05/01/17 21:04 Dose: Not Given Insulin Human Lispro (Humalog High) 0 units SC ACHS [facility] PRN Reason: Protocol Last Admin: 05/01/17 21:03 Dose: Not Given Lisinopril (Zestril) 10 mg PO DAILY [facility] Last Admin: 05/01/17 11:08 Dose: 10 mg Lorazepam (Ativan) 0.5 mg IVP Q6 [facility]STY PRN Reason: Protocol Last Admin: 05/02/17 00:00 Dose: Not Given Lorazepam (Ativan) 1 mg PO TID PRN; Protocol PRN Reason: Psychosis Last Admin: 05/01/17 23:29 Dose: 1 mg Metronidazole (Flagyl) 500 mg PO Q8 [facility] Last Admin: 05/01/17 21:01 Dose: 500 mg Nicotine (Nicoderm Cq) 1 patch TD DAILY [facility] Last Admin: 05/01/17 11:10 Dose: 1 patch Ondansetron HCl (Zofran Inj) 4 mg IVP Q6 PRN PRN Reason: Nausea/Vomiting Last Admin: 04/30/17 21:11 Dose: 4 mg Pantoprazole Sodium (Protonix Ec Tab) 40 mg PO 0600 [facility] Last Admin: 05/01/17 05:55 Dose: 40 mg - Labs Labs: 05/01/17 06:50 05/01/17 06:50 PT 11.5 Seconds (9.9-11.8) 05/01/17 10:30 INR 1.06 (0.93-1.08) 05/01/17 10:30 APTT 32.2 Seconds (23.7-30.8) H 05/01/17 10:30 - Constitutional Appears: Non-toxic, No Acute Distress - Respiratory Exam Respiratory Exam: Clear to Ausculation Bilateral, NORMAL BREATHING PATTERN - Cardiovascular Exam Cardiovascular Exam: REGULAR RHYTHM, +S1, +S2 - GI/Abdominal Exam GI & Abdominal Exam: Soft. absent: Distended, Firm, Guarding, Rigid, Tenderness , Rebound - Neurological Exam Neurological Exam: Alert, Awake Assessment and Plan - Assessment and Plan (Free Text) Assessment: 47F with bladder perforation following procedure CT: Air and fluid in the retroperitoneal Plan: - continue to monitor vitals - monitor labs - continue antibiotics - valle stays in Further recs discuss with Dr. Nigel Duenas, PGY2
--- NOTE | 2017-05-02 07:17 | CARD ---
APPROVED REPORT EKG Measurement Heart [id number] MD [id number] <Conclusion> Sinus tachycardia Left axis deviation Abnormal ECG
[2017-05-02 07:56] VITALS: BP 124/75; PULSE 93; RESP 20; TEMP 98; O2SAT 97
[2017-05-02 08:22] LABS: HEMATOCRIT 32.9 % (36.0-48.0); MEAN CELL VOLUME 84.4 fl (80.0-105.0); MEAN CORPUSCULAR HEMOGLOBIN 28.5 pg (25.0-35.0); MEAN CORPUSCULAR HGB CONC 33.7 g/dl (31.0-37.0); MEAN PLATELET VOLUME 9.7 fl (7.0-11.0); WHITE BLOOD COUNT 13.5 10^3/ul (4.5-11.0)
[2017-05-02 08:29] LABS: ALB/GLOB RATIO 1.1 (1.1-1.8); ALKALINE PHOSPHATASE 101 U/L (38-126); ALT/SGPT 46 U/L (7-56); AST/SGOT 30 U/L (14-36); BILIRUBIN,TOTAL 0.7 mg/dL (0.2-1.3); BLOOD UREA NITROGEN 13 mg/dL (7-21); CALCIUM 8.8 mg/dL (8.4-10.5); CARBON DIOXIDE 29 mmol/L (21-33); CHLORIDE 102 mmol/L (98-107); GFR AFRICAN-AMERICAN > 60; GLUCOSE,RANDOM 230 mg/dL (70-110); POTASSIUM 4.1 mmol/L (3.6-5.0); SODIUM 137 mmol/L (132-148); TOTAL PROTEIN 6.5 g/dL (5.8-8.3)
[2017-05-02] MEDS: Insulin Lispro (HUMAlog) HIGH Coverage SC SCH ×4 (08:34→22:12)
--- NOTE | 2017-05-02 09:13 | CP.PCM.PN ---
<Rk Lopez - Last Filed: 05/02/17 12:11> Subjective - Date & Time of Evaluation Date of Evaluation: 05/02/17 Time of Evaluation: 09:06 - Subjective Subjective: Rk Lopez DO, PGY-1, Dr. Peguero Patient seen and examined at bedside. Patient states she wants to go home and will comply with all medical recommendations. She needs to go home and make sure her son is not spending her money because she needs to pay her rent for the month of April. Objective - Vital Signs/Intake and Output Vital Signs (last 24 hours): Temp Pulse Resp BP Pulse Ox 98.0 F 93 H 20 124/75 97 05/02/17 07:54 05/02/17 07:54 05/02/17 07:54 05/02/17 07:54 05/02/17 07:54 - Medications Medications: Current Medications Acetaminophen (Tylenol 325mg Tab) 650 mg PO Q6H PRN PRN Reason: Fever >100.4 F Last Admin: 05/01/17 17:37 Dose: 650 mg Amlodipine Besylate (Norvasc) 5 mg PO DAILY [facility] Last Admin: 05/01/17 11:09 Dose: 5 mg Heparin Sodium (Porcine) (Heparin) 5,000 units SC Q12 [facility]STY PRN Reason: Protocol Last Admin: 05/01/17 21:01 Dose: 5,000 units Hydralazine HCl (Apresoline) 25 mg PO Q8H PRN PRN Reason: SBP > 180 Last Admin: 04/29/17 17:52 Dose: 25 mg Linezolid (Zyvox 600mg/300ml D5w) 600 mg in 300 mls @ 200 mls/hr IVPB Q12 [facility] PRN Reason: Protocol Stop: 05/09/17 10:01 Last Admin: 05/01/17 22:46 Dose: 200 mls/hr Potassium Chloride 10 meq/ (Sodium Chloride) 1,005 mls @ 100 mls/hr IV .Q10H3M [facility] Last Admin: 05/01/17 21:01 Dose: 100 mls/hr Meropenem 1g/NS 100mL IVPB (Meropenem 1g/Ns 100ml Ivpb) 1 gm in 100 mls @ 100 mls/hr IVPB Q12 [facility] PRN Reason: Protocol Stop: 05/10/17 22:01 Last Admin: 05/01/17 21:00 Dose: 100 mls/hr Insulin Detemir (Levemir) 10 unit SC HS [facility] Last Admin: 05/01/17 21:04 Dose: Not Given Insulin Human Lispro (Humalog High) 0 units SC ACHS [facility] PRN Reason: Protocol Last Admin: 05/02/17 08:34 Dose: 4 units Lisinopril (Zestril) 10 mg PO DAILY [facility] Last Admin: 05/01/17 11:08 Dose: 10 mg Lorazepam (Ativan) 0.5 mg IVP Q6 [facility] PRN Reason: Protocol Last Admin: 05/02/17 06:22 Dose: Not Given Lorazepam (Ativan) 1 mg PO TID PRN; Protocol PRN Reason: Psychosis Last Admin: 05/01/17 23:29 Dose: 1 mg Metronidazole (Flagyl) 500 mg PO Q8 [facility] Last Admin: 05/02/17 06:21 Dose: 500 mg Nicotine (Nicoderm Cq) 1 patch TD DAILY [facility] Last Admin: 05/02/17 08:43 Dose: 1 patch Ondansetron HCl (Zofran Inj) 4 mg IVP Q6 PRN PRN Reason: Nausea/Vomiting Last Admin: 04/30/17 21:11 Dose: 4 mg Pantoprazole Sodium (Protonix Ec Tab) 40 mg PO 0600 [facility] Last Admin: 05/02/17 06:21 Dose: 40 mg - Labs Labs: 05/02/17 08:00 05/02/17 08:00 PT 11.5 Seconds (9.9-11.8) 05/01/17 10:30 INR 1.06 (0.93-1.08) 05/01/17 10:30 APTT 32.2 Seconds (23.7-30.8) H 05/01/17 10:30 - Constitutional Appears: Well, No Acute Distress - Head Exam Head Exam: ATRAUMATIC, NORMOCEPHALIC - Eye Exam Eye Exam: EOMI, Normal appearance. absent: Conjunctival injection - ENT Exam ENT Exam: Mucous Membranes Moist, Normal Oropharynx - Neck Exam Neck Exam: Normal Inspection. absent: Lymphadenopathy - Respiratory Exam Respiratory Exam: Clear to Ausculation Bilateral, NORMAL BREATHING PATTERN. absent: Respiratory Distress - Cardiovascular Exam Cardiovascular Exam: RRR, +S1, +S2 - GI/Abdominal Exam GI & Abdominal Exam: Soft, Normal Bowel Sounds. absent: Guarding, Tenderness, Rebound - Exam Exam: NORMAL INSPECTION - Extremities Exam Extremities Exam: Full ROM, Normal Capillary Refill, Normal Inspection - Back Exam Back Exam: NORMAL INSPECTION. absent: CVA tenderness (L), CVA tenderness (R) - Neurological Exam Neurological Exam: Alert, Normal Gait, Oriented x3 Neuro motor strength exam: Left Upper Extremity: 5, Right Upper Extremity: 5, Left Lower Extremity: 5, Right Lower Extremity: 5 - Psychiatric Exam Psychiatric exam: Anxious Additional comments: Patient is alert and oriented to place and time (AO x2), - Skin Skin Exam: Dry, Intact, Normal Color, Warm Assessment and Plan - Assessment and Plan (Free Text) Assessment: 47 with PMH of DM 2, Hx H. pylori PUD (unknown whether triple therapy), and questionable Xanax abuse (per pharmacy record) presented at [facility] on 04/28 for intractable vomiting, NBNB diarrhea, and epigastic abdominal pain radiating throughout her abdomen. She denies any recent travel, sick contacts. On admission, pt had pin-point pupils with lethargy. UDS (+) cannabinoid. Negative benzo. Pt has a mid-line placement for difficult vascular access. Her GI symptoms resolved on flagyl PO. CT abdomen and pelvis (04/26) showed an incidental finding of a 1.4 cm lesion on R bladder wall and a renal cyst. Pt underwent cystoscopy with transurethral resection of bladder tumor on 04/29 (POD # 5). POD #0: After procedure, patient wanted to leave and became violent. Maury rey was called. POD #1: Patient mentation swiftly fluctuated, from AAOx1 to AAOx3. Delirium suspected. Septic work up initiated. Pt attempted to elope with mid-line in place, unsuccessful. Code rey x 3. WBC 12.5. Tmax 99.9. valle removed. POD #2: Pt became lethargic. Valle was placed, 300cc dark casie urine drained. WBC 18. Persistent sinus tachycardia was noticed. CT abdomen/pelvis with PO contrast showed (1) ground glass bilateral pulmonary opacity, vascular congestion vs infection. (2) Phlegmon/abscess at extraperiotoneal R pelvic side wall. Moderate pelvic fluid and extensive inflammatory stranding. Extensive gas at extraperitoneal space and retroperotpneal space in psos. Upgraded ABX. POD #3: Overnight, patient was afebrile, though morning labs show a leukocytosis of 13,500 (no differential). Procalcitonin on 05/01 was 0.08. BUN/Cr were 13/0.7.Patient is alert and oriented to person and place. Walking, talking , not delirious but paranoid about her stay in the hospital and what is going on at home. Patient admits to fear of being committed. 5 mg of PO Haldol and 1 mg of PO Ativan administered for paranoid behavior, early signs of agitation at approximately 09:30 Patient's midline is out of right arm, there is swelling at the site of insertion. 1 maury alejandro called for agitation at this point in time. Ziprasidone BID added by psychiatry. Plan: Following the surgical procedure the patient had abrupt mentation changes with leukocytosis and sinus tachycardia likely due to sepsis secondary to extraperitoneal inflammation s/p TURB. Dr. Reynoso called and instructed: repeat CT abdomen and pelvis tomorrow. Continue valle at least for 1 week. Continue antibiotics. Trend fever curve, WBC, and continue monitor clinical response. Sepsis, likely from extraperitoneal abscess. R/O other infection. Unlikely catheter-related UTI. Unlikely gastroenteritits Patient's tachycardia has resolved - ID on board - Flagyl PO (day 6), Linezolid (day 2), Meropenem (day 2) - Blood culture (04/30, 05/01) = negative x 2 day - urine culture (04/30) = negative - U/A neg UTI - FTA-ABS and HIV-Ag/Ab pending - Procalcitonin 0.08, RPR negative Persistent sinus tachycardia, resolved as of 05/02 - EKG (05/01): Sinus 109. no ST/TW changes. QTc 474 - LE b/l U/S to showed no DVT. Thereby unlikely PE. Extraperitoneal inflammation with possible abscess - Surgery: Unlikely intra-abdominal organ perforation. No surgery needed. - IR consulted for possible drainage Delirium, resolved r/o medical etiology Agitation likely secondary to underlying affective disorder that is not optimally medicated yet Failed Elopement attempt (with mid-line) Questionable xanax abuse and withdrawal - seizure precaution - on 1:1 - As of 05/02/17, per psych: no capacity to leave AMA. No psych clearance to discharge home - Ativan 0.5mg IV q6 CHRISTY - Per Dr. Pina, Give ativan 1 and haldol 5 PO together PRN. Wait up to 1- 2 hours for response. This cocktail was tried; however, patient's agitation grew and Ziprasidone BID was added. - Head CT reviewed- No intracranial mass, hemorrhage or evidence of acute infarct. - TSH normal Bladder wall mass, s/p TURB Renal Cyst - Repeat CT A/P impression: Extensive foci of gas re-identified within the extraperitoneal space, along the right pelvic sidewall, and the retroperitoneal space deep to the psoas muscle. Small pelvic fluid. Mild inflammatory stranding with in the pelvis. Fluid and stranding have decreased slightly since prior study. The urinary bladder appears thick walled and decompressed with a Valle catheter present. Previously seen urinary bladder mass cannot be adequately assessed on the current examination. Air is seen within the urinary bladder. Focus of there is also noted at the level the right urinary bladder wall. Evidence of phlegmon at the level the right pelvic sidewall. Discrete abscess is not appreciated. 1.3 cm left upper pole renal mass is not adequately visualized on the current study. Prior imaging revealed cyst in this region. Recommend renal ultrasound for further evaluation/characterization when indicated. Hepatomegaly. - Cystoscopy (04/29): 2.5 cm papillary bladder tumor on R superior lateral wall, no satellite lesions - F/u with Dr. Reynoso outpatient - Pending pathology report Gastroenteritis Intractable vomiting and abd pain - resolved details- CT abd (04/28) Sigmoid diverticulosis without evidence of diverticulitis. Diabetes Mellitis, HgbA1C is 10 - hold home med - Levemir 10 HS, ISSS-high ACHS, accucheck ACHS HTN - started amlodipine 5 qd, lisinopril 10 qd. PRN hydralazine - find secondary causes- renal artery duplex reviewed- 1. The main renal arteries are fairly well visualized. 2. No sonographically significant stenosis is identified. 3. The kidneys are normal and symmetric in size. There are no solid renal masses, abnormal calcifications or hydronephrosis noted, TSH- 0.96 noted Tobacco abuse - nicoderm patch, 21 mg - awake overnight counselor smoking cessation Pvx: heparin; protonix FENA: NS(+10meq K)@100. HHD+carb const. R arm Midline Disposition Planning - Not yet - In-house psychiatry evaluation once ispatient's medically cleared, i.e. WBC less than 10,[address] A/P shows resolution of pathologic process. Then, [facility] screening eval as needed after medically cleared Consult: ID = Dr. Dahl Urol = Dr. Schwartz IR = Dr. Smart Psych = Dr. Romo Surgery = Dr. Manning S/R/D/w Dr. Chen <Arcadio Chen S - Last Filed: 05/03/17 05:43> Objective - Vital Signs/Intake and Output Vital Signs (last 24 hours): Temp Pulse Resp BP Pulse Ox 98.0 F 93 H 20 124/75 97 05/02/17 07:54 05/02/17 09:21 05/02/17 07:54 05/02/17 09:21 05/02/17 07:54 Intake and Output: 05/02/17 05/03/17 18:59 06:59 Intake Total 1260 Output Total 1500 Balance -240 - Medications Medications: Current Medications Acetaminophen (Tylenol 325mg Tab) 650 mg PO Q6H PRN PRN Reason: Fever >100.4 F Last Admin: 05/01/17 17:37 Dose: 650 mg Amlodipine Besylate (Norvasc) 5 mg PO DAILY [facility] Last Admin: 05/02/17 09:21 Dose: 5 mg Heparin Sodium (Porcine) (Heparin) 5,000 units SC Q12 [facility] PRN Reason: Protocol Last Admin: 05/02/17 21:00 Dose: 5,000 units Hydralazine HCl (Apresoline) 25 mg PO Q8H PRN PRN Reason: SBP > 180 Last Admin: 04/29/17 17:52 Dose: 25 mg Linezolid (Zyvox 600mg/300ml D5w) 600 mg in 300 mls @ 200 mls/hr IVPB Q12 [facility] PRN Reason: Protocol Stop: 05/09/17 10:01 Last Admin: 05/02/17 22:16 Dose: 200 mls/hr Potassium Chloride 10 meq/ (Sodium Chloride) 1,005 mls @ 100 mls/hr IV .Q10H3M [facility] Last Admin: 05/02/17 17:10 Dose: 100 mls/hr Meropenem 1g/NS 100mL IVPB (Meropenem 1g/Ns 100ml Ivpb) 1 gm in 100 mls @ 100 mls/hr IVPB Q12 [facility] PRN Reason: Protocol Stop: 05/10/17 22:01 Last Admin: 05/02/17 21:01 Dose: 100 mls/hr Insulin Detemir (Levemir) 10 unit SC HS [facility] Last Admin: 05/02/17 22:12 Dose: 10 unit Insulin Human Lispro (Humalog High) 0 units SC ACHS [facility] PRN Reason: Protocol Last Admin: 05/02/17 22:12 Dose: 3 units Lisinopril (Zestril) 10 mg PO DAILY [facility] Last Admin: 05/02/17 09:20 Dose: 10 mg Lorazepam (Ativan) 1 mg PO TID [facility] PRN Reason: Protocol Last Admin: 05/02/17 17:07 Dose: 1 mg Lorazepam (Ativan) 0.5 mg IVP Q6 PRN; Protocol PRN Reason: agitation/anxiety Last Admin: 05/03/17 03:28 Dose: 0.5 mg Metronidazole (Flagyl) 500 mg PO Q8 [facility] Last Admin: 05/03/17 05:31 Dose: Not Given Nicotine (Nicoderm Cq) 1 patch TD DAILY [facility] Last Admin: 05/02/17 10:41 Dose: Not Given Ondansetron HCl (Zofran Inj) 4 mg IVP Q6 PRN PRN Reason: Nausea/Vomiting Last Admin: 04/30/17 21:11 Dose: 4 mg Pantoprazole Sodium (Protonix Ec Tab) 40 mg PO 0600 [facility] Last Admin: 05/03/17 05:31 Dose: Not Given Ziprasidone (Geodon Cap) 20 mg PO AMHS [facility] PRN Reason: Protocol Last Admin: 05/02/17 21:01 Dose: 20 mg Ziprasidone (Geodon Inj) 20 mg IM BID PRN; Protocol PRN Reason: agitaiton/psychosis Last Admin: 05/02/17 11:31 Dose: 20 mg - Labs Labs: 05/02/17 08:00 05/02/17 08:00 PT 11.5 Seconds (9.9-11.8) 05/01/17 10:30 INR 1.06 (0.93-1.08) 05/01/17 10:30 APTT 32.2 Seconds (23.7-30.8) H 05/01/17 10:30 Assessment and Plan - Assessment and Plan (Free Text) Plan: discussed w/ resident plans for tmt and care at length
[2017-05-02] MEDS: Linezolid 600 mg in D5W 300 ml 600 MG/300 ML BAG IVPB SCH ×2 (09:19→22:16)
[2017-05-02] MEDS: Meropenem 1g/NS 100mL IVPB 1 GM/100 ML PIGGYBACK IVPB SCH ×2 (10:41→21:01)
--- NOTE | 2017-05-02 10:49 | PN ---
DATE: SUBJECTIVE: She is comfortable. No abdominal pain. Her white count is 13,500. The urine is draining clear casie urine. She put out a significant amount. Her chemistries show a creatinine of 0.7 with a BUN of 13, which also goes against any significant fluid collection extraperitoneally. I will repeat a CAT scan in the morning. If her white count continues to comes down and there is no change in the CAT scan, I would leave the Cervantes catheter indwelling for a total of 7 days. She can be discharged with leg bag. We will follow up in the office for removal. I think the microperforation is already filled off, but nevertheless, we keep the Cervantes in for total of 7 days. Juan Reynoso MD
--- NOTE | 2017-05-02 11:08 | CP.PCM.PCO ---
Addendum Addendum: 05/02/17 11:06 Dago Pichardo D.O. PGY-2, D.O. On Duty (D.O.O.D.) Received page from RN to eval midline. At bedside no blood drawing from line, leaking around dressing, arm swollen compared to right arm and somewhat cold from saline flushes that were being done on arrival, midline removed at bedside and pressure dressing applied. Communicated to resident on team. Nursing staff will try to place PIV.
--- NOTE | 2017-05-02 11:50 | CT ---
CT abdomen and pelvis without IV contrast Indication: Any changes since 05/01? Technique: Contiguous axial images of the abdomen and pelvis. No oral or IV contrast given. Coronal and Sagittal reformats generated and reviewed. This CT exam was performed using 1 or more of the following dose reduction techniques: Automated exposure control, adjustment of the MAA and/or kV according to patient size, and/or use of iterative reconstruction technique. Radiation dose: Total exam DLP = 537.40 mGy-cm. Comparison: CT of the chest, abdomen, and pelvis performed 05/01/17 Findings: Lack of IV contrast limits evaluation of the solid organs. 9 mm fat containing umbilical hernia. Hepatomegaly. 1.3 cm left upper pole renal mass, indeterminate. The noncontrast spleen, kidneys, pancreas, adrenal glands, and gallbladder appear otherwise unremarkable. Nonobstructive bowel gas pattern. The appendix appears within normal limits of caliber. The appendix appears within normal limits of caliber. No secondary signs of acute appendicitis. Extensive foci of gas re-identified within the extraperitoneal space, along the right pelvic sidewall, and the retroperitoneal space deep to the psoas muscle. Small pelvic fluid. Mild inflammatory stranding with in the pelvis. Fluid and stranding have decreased slightly since prior study.. The urinary bladder appears thick walled and decompressed with a Cervantes catheter present. Previously seen urinary bladder mass cannot be adequately assessed on the current examination. Air is seen within the urinary bladder. Focus of there is also noted at the level the right urinary bladder wall. Evidence of phlegmon at the level the right pelvic sidewall. Discrete abscess is not appreciated. The uterus is present. Degenerative changes. Intervertebral disc space narrowing at L3-L4. Impression: Extensive foci of gas re-identified within the extraperitoneal space, along the right pelvic sidewall, and the retroperitoneal space deep to the psoas muscle. Small pelvic fluid. Mild inflammatory stranding with in the pelvis. Fluid and stranding have decreased slightly since prior study. The urinary bladder appears thick walled and decompressed with a Cervantes catheter present. Previously seen urinary bladder mass cannot be adequately assessed on the current examination. Air is seen within the urinary bladder. Focus of there is also noted at the level the right urinary bladder wall. Evidence of phlegmon at the level the right pelvic sidewall. Discrete abscess is not appreciated. 1.3 cm left upper pole renal mass is not adequately visualized on the current study. Prior imaging revealed cyst in this region. Recommend renal ultrasound for further evaluation/characterization when indicated. Hepatomegaly. Additional findings as above. Case discussed with the patient's RN Deborah on 05/02/17 at 11:22 a.m.
--- NOTE | 2017-05-02 15:47 | PN ---
DATE: 05/02/2017 SUBJECTIVE: The patient is in bed, in no acute distress. She seems much better. She did have fevers last night. PHYSICAL EXAMINATION: VITAL SIGNS: Temperature is 98, T-max is 101.4, blood pressure is 120/70, respiratory rate is 20, and heart rate of 93. HEENT: Unremarkable. NECK: Supple. LUNGS: Decreased breath sounds. HEART: Normal S1 and S2. ABDOMEN: Soft. Lower pelvic exam reveals mild tenderness. No rebound or guarding. LABORATORY DATA: Reveals a white count down to 13,000 and hemoglobin of 11. BUN of 13 and creatinine 0.7. Procalcitonin 0.08. Urinalysis is noted. Serology is pending. Microbiology reveals blood cultures from yesterday no growth. Urine cultures are pending. The initial urine cultures are negative. MEDICATIONS: The patient is currently on Zyvox, meropenem, and Flagyl. ASSESSMENT AND PLAN: A 47-year-old female with history of diabetes, Helicobacter pylori, alcohol abuse, and substance abuse who was admitted on with nausea and vomiting and found to have urinary bladder wall mass, had a procedure done and yesterday, the patient's white count had increased that and developed tachycardia and sepsis with CAT scan consistent with an abscess and/or collection postprocedure versus perforated urinary bladder. Currently on Zyvox and meropenem. We will check on the repeat urine culture and Dr. Reynoso's notes from this morning is reviewed. Case discussed with Dr. Reynoso and Dr.Howard Chen covering for Dr. Peguero and Dr. Reynoso is ordered a repeat CAT scan this morning. We will check on the repeat CAT scan result. Dr. Rk Aguirre's note is reviewed. We will follow closely with you. Harinder Dahl MD
--- NOTE | 2017-05-02 16:56 | PN ---
HISTORY OF PRESENT ILLNESS: Shortly, the patient is a 47-year-old -[place] female with history of substance abuse and dependence. The patient came to the hospital for evaluation of abdominal pain and vomiting. The patient had episodes of lethargy as well as agitation. The patient is most likely in delirium stage. This script writer attempted to speak to the patient 3 times last week, but the patient was lethargic. The patient was followed up by Dr. Pina over the weekend, was recommended Haldol and Ativan p.r.n. for agitation, and Dr. Pina's impression was delirium and the patient did not have capacity to sign against medical advise. As per medical team collateral information, the patient tried to elope yesterday and maury rey was called. The patient also attempted to elope with the PICC line and the patient also had episode where the patient was violent. That is why, the patient was started on one-to-one. This script writer attempted to speak to the patient today. The patient appears to be restless, was moving around, seems to have good spirit. The patient remembered this script writer and said that she feels much better. At the same time, the patient is not aware about her medical condition. When the patient was asked what medical team told the patient about her medical issues, the patient said I have muscle sores, that is all. The patient is not aware about abscess as well as some bladder tumor which was removed on 04/29/2017. It could related to the delirium stage which the patient is currently in. The patient said that she is not depressed. She denied that she has thoughts of killing herself or others. The patient said that she is not hearing any voices and not seeing anything, but the patient reported at times she feels paranoid, that she saw a vanita and somebody could do something on her. The patient denied any specific person who would do magic spells on her and the patient denied that people against her and they want to hurt her. As per nursing staff, the patient has altered mental status, wondering that she is alert and oriented, in other manner, she is very confused which is the description of delirium. PHYSICAL EXAMINATION: Vital signs are stable. Temperature 98.0, pulse is 93, blood pressure 124/75, respiration 20, oxygen saturation is 97%. MEDICATIONS: Reviewed, Nicoderm, Tylenol, Norvasc, heparin, hydralazine, Levemir, Humalog. The patient is on Zyvox, Zestril, Ativan 0.5 mg IV push q. 6 hours scheduled which is not given. This script writer will discontinue scheduled Ativan IV push because the patient is able to tolerate the food and the patient is also started on 1 mg of Ativan p.o. 3 times a day scheduled by this script writer. The patient is on meropenem, Flagyl, Zofran, Protonix, and potassium chloride. LABORATORY DATA: Reviewed. Hematology, leukocytosis 13.5, hemoglobin and hematocrit 11.1 and 32.9. Coagulation is reviewed. Chemistry is reviewed. MENTAL STATUS EXAMINATION: The patient appears to be alert and oriented to self, time, and place, but the patient is not aware of her medical condition and circumstances of admission. The patient has intermittent eye contact. Speech was overproductive. The patient is talkative, but seems to be in good mood. Thought process was circumstantial and tangential. The patient had difficulty to stay focused and very hard to interview. Mood described "I am fine, I am going home." Of note, it is not correct information. Thought content, the patient denied visual, auditory, or tactile hallucinations. The patient says that she feels paranoid. The patient denied any intent or plan to kill herself. IMPRESSION: Most likely, the patient has delirium stage due to general medical condition. The patient had abscess which needed to be drained. The patient also had tumor in her bladder, which was removed on 04/29/2017, which contributed to the patient's delirium stage. The patient also has history of cannabis abuse, questionable history of benzodiazepine abuse and misuse. PLAN: Continue current management. The patient is on one-to-one right now. The patient does not want to be on Haloperidol. This script writer educated the patient about Seroquel. The patient said "Seroquel will give you increased weight, I do not want that." The patient was educated about Geodon. The patient verbalized understanding, willing to try this medication for delirium. The patient was started on scheduled dose of Ativan 1 mg 3 times a day because the patient said that she feels jumpy and restless. The patient said that she fills her medication at [facility]. This script writer attempted to obtain medication list for the patient on [phone]. The patient's pharmacy is close and there is no option to leave a voice mail. The patient says that she does not have psychiatrist outside and the patient was provided with contact information of providers, [facility], and [facility] as well as contact information of local psychiatrist. The patient was appreciative. I agree with Dr. Pina's evaluation about the patient is less capacitative to sign against medical advise because the patient is not aware of her medical condition and the patient had impression that she was admitted to the medical side for muscle pain. Medical team and surgical team need to educate the patient about her diagnoses, risks, benefits, and alternatives of the procedure, and sure that it was done, but the patient is in delirium stage which could have contributed to the patient's condition. This script writer will follow up and advise accordingly. Geodon IM as needed for agitation was started and the patient is on one-to-one. Thank you very much for letting me participate in care of your patient. Should you have any questions, give me a call back. Naida Romo MD
--- NOTE | 2017-05-02 19:02 | PN ---
SUBJECTIVE: I saw the patient, she was taking a shower this morning. I said hello to her and then the fireworks began, she demanded to be discharged and to walk out of the hospital, she do not want to be here anymore. I had this conversation with her the other day in the [facility]. She had multiple code cristian and I assume a code rey will be called again. She is on Apresoline, Ativan, Flagyl, Geodon, heparin, insulin, Levemir, meropenem IV, Nicoderm, Norvasc, potassium replacement, Protonix, Tylenol, Zestril, Zofran and Zyvox IV. She had a bad infection in the abdomen. She had an abscess which perforated. Her white count is as high as 18,000; I think that is coming down to 13,000 with IV antibiotics. I discussed with infectious disease, she is pulling the IV antibiotics, I discussed this with psychiatry. She needs to be on one-to-one and she cannot be discharged. I discussed with family, they said all her problems and issues at home were being taken care when she tried and we reassure her that she does not have to things that is being taken care by family. It is very hard for her to understand or to listen to what we have to say, she is stuck in her head that is what she wants to do and it is hard for her to catch any other information. PHYSICAL EXAMINATION: VITAL SIGNS: She did have 101.4 temp, last night it stopped to 98 with the antibiotics; 93 pulse; 124/75 blood pressure; 20 respiratory rate and 97% of O2 sat on room air. She is being seen by the resident. I discussed at length with the resident, went over her physical exam and her condition. She has an infiltrated IV which was taken out. She has another IV access which is not going to be a problem, so I do not think she is going to anybody put in IV in her anymore. LABORATORY DATA: She has 137 sodium, potassium 4.1, BUN is 13, creatinine 0.7, GFR is greater than 60, sugar is 230, calcium is 8.8. Total bili is 0.7, AST is 30, ALT is 46, alk phos is 101, total protein is 6.5. She has a 13.5 white count which is better, she 11.1 hemoglobin, 32.9 hematocrit with 225 platelets. I did explain everything to her as best I can, not sure if she is absorbing and understanding everything I am telling. We will continue here as per psychiatry one-to-one and she is not allowed to leave, code rey and aggressive treatment for her infection, her sepsis, her bladder wall tumor. Thank you very much, discussed with the resident. Arcadio Chen DO MTDYanick
[2017-05-02] MEDS: Insulin Detemir 100 units/ml Vial (Levemir) SC SCH (22:12)
[2017-05-03] MEDS: Pantoprazole 40 mg EC Tab PO SCH (05:31)
[2017-05-03 07:11] LABS: HEMATOCRIT 31.8 % (36.0-48.0); MEAN CELL VOLUME 85.7 fl (80.0-105.0); MEAN CORPUSCULAR HEMOGLOBIN 27.8 pg (25.0-35.0); MEAN CORPUSCULAR HGB CONC 32.4 g/dl (31.0-37.0); MEAN PLATELET VOLUME 9.7 fl (7.0-11.0); RED CELL DISTRIBUTION WIDTH 13.2 % (11.5-14.5); WHITE BLOOD COUNT 9.7 10^3/ul (4.5-11.0)
--- NOTE | 2017-05-03 07:25 | CP.PCM.PN ---
Subjective - Date & Time of Evaluation Date of Evaluation: 05/03/17 Time of Evaluation: 07:22 - Subjective Subjective: General Surgery Progress note for Dr. Manning PT S&E at bedside. RENEA. Patient admitted to having diarrhea overnight. abdominal pain is gone per patient. Denies F/C, N/V, Abdominal pain. Patient wants to go home today Objective - Vital Signs/Intake and Output Vital Signs (last 24 hours): Temp Pulse Resp BP Pulse Ox 98.0 F 93 H 20 124/75 97 05/02/17 07:54 05/02/17 09:21 05/02/17 07:54 05/02/17 09:21 05/02/17 07:54 Intake and Output: 05/03/17 05/03/17 06:59 18:59 Intake Total 1260 Output Total 1500 Balance -240 - Medications Medications: Current Medications Acetaminophen (Tylenol 325mg Tab) 650 mg PO Q6H PRN PRN Reason: Fever >100.4 F Last Admin: 05/01/17 17:37 Dose: 650 mg Amlodipine Besylate (Norvasc) 5 mg PO DAILY [facility] Last Admin: 05/02/17 09:21 Dose: 5 mg Heparin Sodium (Porcine) (Heparin) 5,000 units SC Q12 CHRISTY PRN Reason: Protocol Last Admin: 05/02/17 21:00 Dose: 5,000 units Hydralazine HCl (Apresoline) 25 mg PO Q8H PRN PRN Reason: SBP > 180 Last Admin: 04/29/17 17:52 Dose: 25 mg Linezolid (Zyvox 600mg/300ml D5w) 600 mg in 300 mls @ 200 mls/hr IVPB Q12 CHRISTY PRN Reason: Protocol Stop: 05/09/17 10:01 Last Admin: 05/02/17 22:16 Dose: 200 mls/hr Potassium Chloride 10 meq/ (Sodium Chloride) 1,005 mls @ 100 mls/hr IV .Q10H3M [facility] Last Admin: 05/02/17 17:10 Dose: 100 mls/hr Meropenem 1g/NS 100mL IVPB (Meropenem 1g/Ns 100ml Ivpb) 1 gm in 100 mls @ 100 mls/hr IVPB Q12 CHRISTY PRN Reason: Protocol Stop: 05/10/17 22:01 Last Admin: 05/02/17 21:01 Dose: 100 mls/hr Insulin Detemir (Levemir) 10 unit SC HS [facility] Last Admin: 05/02/17 22:12 Dose: 10 unit Insulin Human Lispro (Humalog High) 0 units SC ACHS [facility] PRN Reason: Protocol Last Admin: 05/02/17 22:12 Dose: 3 units Lisinopril (Zestril) 10 mg PO DAILY [facility] Last Admin: 05/02/17 09:20 Dose: 10 mg Lorazepam (Ativan) 1 mg PO TID [facility] PRN Reason: Protocol Last Admin: 05/02/17 17:07 Dose: 1 mg Lorazepam (Ativan) 0.5 mg IVP Q6 PRN; Protocol PRN Reason: agitation/anxiety Last Admin: 05/03/17 03:28 Dose: 0.5 mg Metronidazole (Flagyl) 500 mg PO Q8 [facility] Last Admin: 05/03/17 05:31 Dose: Not Given Nicotine (Nicoderm Cq) 1 patch TD DAILY [facility] Last Admin: 05/02/17 10:41 Dose: Not Given Ondansetron HCl (Zofran Inj) 4 mg IVP Q6 PRN PRN Reason: Nausea/Vomiting Last Admin: 04/30/17 21:11 Dose: 4 mg Pantoprazole Sodium (Protonix Ec Tab) 40 mg PO 0600 [facility] Last Admin: 05/03/17 05:31 Dose: Not Given Ziprasidone (Geodon Cap) 20 mg PO AMHS [facility] PRN Reason: Protocol Last Admin: 05/02/17 21:01 Dose: 20 mg Ziprasidone (Geodon Inj) 20 mg IM BID PRN; Protocol PRN Reason: agitaiton/psychosis Last Admin: 05/02/17 11:31 Dose: 20 mg - Labs Labs: 05/03/17 06:55 05/02/17 08:00 PT 11.5 Seconds (9.9-11.8) 05/01/17 10:30 INR 1.06 (0.93-1.08) 05/01/17 10:30 APTT 32.2 Seconds (23.7-30.8) H 05/01/17 10:30 - Constitutional Appears: Non-toxic - Head Exam Head Exam: NORMAL INSPECTION - Eye Exam Eye Exam: EOMI, Normal appearance - ENT Exam ENT Exam: Mucous Membranes Moist - Neck Exam Neck Exam: Full ROM, Normal Inspection - Respiratory Exam Respiratory Exam: NORMAL BREATHING PATTERN. absent: Accessory Muscle Use, Respiratory Distress - Cardiovascular Exam Cardiovascular Exam: REGULAR RHYTHM. absent: Bradycardia, Tachycardia - GI/Abdominal Exam GI & Abdominal Exam: Soft. absent: Tenderness, Mass, Rebound - Extremities Exam Extremities Exam: Full ROM. absent: Pedal Edema - Neurological Exam Neurological Exam: Alert, Awake, Oriented x3 - Psychiatric Exam Psychiatric exam: Flat Affect, Normal Affect, Normal Mood - Skin Skin Exam: Dry, Intact, Normal Color, Warm Assessment and Plan - Assessment and Plan (Free Text) Assessment: 47F with bladder perforation following procedure CT: Air and fluid in the retroperitoneal Plan: - continue to monitor vitals - monitor labs - continue antibiotics - valle stays in Further recs discuss with Dr. Nigel Carlson, DO PGY2
--- NOTE | 2017-05-03 07:30 | CP.PCM.PN ---
Subjective - Date & Time of Evaluation Date of Evaluation: 05/03/17 Time of Evaluation: 07:00 - Subjective Subjective: Patient seen and examined at bedside. No acute events overnight. Patient states that her abdominal pain has resolved. She is resting comfortably in bed and is answering questions appropriately. Denies f/c/cp/sob/abdominal pain/N/V/diarrhea /and urinary symptoms. Objective - Vital Signs/Intake and Output Vital Signs (last 24 hours): Temp Pulse Resp BP Pulse Ox 98.0 F 93 H 20 124/75 97 05/02/17 07:54 05/02/17 09:21 05/02/17 07:54 05/02/17 09:21 05/02/17 07:54 Intake and Output: 05/03/17 05/03/17 06:59 18:59 Intake Total 1260 Output Total 1500 Balance -240 - Medications Medications: Current Medications Acetaminophen (Tylenol 325mg Tab) 650 mg PO Q6H PRN PRN Reason: Fever >100.4 F Last Admin: 05/01/17 17:37 Dose: 650 mg Amlodipine Besylate (Norvasc) 5 mg PO DAILY [facility] Last Admin: 05/02/17 09:21 Dose: 5 mg Heparin Sodium (Porcine) (Heparin) 5,000 units SC Q12 [facility]RISTY PRN Reason: Protocol Last Admin: 05/02/17 21:00 Dose: 5,000 units Hydralazine HCl (Apresoline) 25 mg PO Q8H PRN PRN Reason: SBP > 180 Last Admin: 04/29/17 17:52 Dose: 25 mg Linezolid (Zyvox 600mg/300ml D5w) 600 mg in 300 mls @ 200 mls/hr IVPB Q12 [facility]RISTY PRN Reason: Protocol Stop: 05/09/17 10:01 Last Admin: 05/02/17 22:16 Dose: 200 mls/hr Potassium Chloride 10 meq/ (Sodium Chloride) 1,005 mls @ 100 mls/hr IV .Q10H3M [facility] Last Admin: 05/02/17 17:10 Dose: 100 mls/hr Meropenem 1g/NS 100mL IVPB (Meropenem 1g/Ns 100ml Ivpb) 1 gm in 100 mls @ 100 mls/hr IVPB Q12 CHRISTY PRN Reason: Protocol Stop: 05/10/17 22:01 Last Admin: 05/02/17 21:01 Dose: 100 mls/hr Insulin Detemir (Levemir) 10 unit SC HS [facility] Last Admin: 05/02/17 22:12 Dose: 10 unit Insulin Human Lispro (Humalog High) 0 units SC ACHS [facility] PRN Reason: Protocol Last Admin: 05/02/17 22:12 Dose: 3 units Lisinopril (Zestril) 10 mg PO DAILY [facility] Last Admin: 05/02/17 09:20 Dose: 10 mg Lorazepam (Ativan) 1 mg PO TID [facility] PRN Reason: Protocol Last Admin: 05/02/17 17:07 Dose: 1 mg Lorazepam (Ativan) 0.5 mg IVP Q6 PRN; Protocol PRN Reason: agitation/anxiety Last Admin: 05/03/17 03:28 Dose: 0.5 mg Metronidazole (Flagyl) 500 mg PO Q8 [facility] Last Admin: 05/03/17 05:31 Dose: Not Given Nicotine (Nicoderm Cq) 1 patch TD DAILY [facility] Last Admin: 05/02/17 10:41 Dose: Not Given Ondansetron HCl (Zofran Inj) 4 mg IVP Q6 PRN PRN Reason: Nausea/Vomiting Last Admin: 04/30/17 21:11 Dose: 4 mg Pantoprazole Sodium (Protonix Ec Tab) 40 mg PO 0600 [facility] Last Admin: 05/03/17 05:31 Dose: Not Given Ziprasidone (Geodon Cap) 20 mg PO AMHS [facility] PRN Reason: Protocol Last Admin: 05/02/17 21:01 Dose: 20 mg Ziprasidone (Geodon Inj) 20 mg IM BID PRN; Protocol PRN Reason: agitaiton/psychosis Last Admin: 05/02/17 11:31 Dose: 20 mg - Labs Labs: 05/03/17 06:55 05/02/17 08:00 PT 11.5 Seconds (9.9-11.8) 05/01/17 10:30 INR 1.06 (0.93-1.08) 05/01/17 10:30 APTT 32.2 Seconds (23.7-30.8) H 05/01/17 10:30 - Additional Findings Additional findings: - Constitutional Appears: Other (lethargic) - Head Exam Head Exam: ATRAUMATIC, NORMAL INSPECTION, NORMOCEPHALIC - Eye Exam Eye Exam: EOMI, Normal appearance, PERRL. absent: Scleral icterus - ENT Exam ENT Exam: Mucous Membranes Moist - Neck Exam Additional comments: supple - Respiratory Exam Respiratory Exam: Clear to Ausculation Bilateral, NORMAL BREATHING PATTERN. absent: Rales, Rhonchi, Wheezes - Cardiovascular Exam Cardiovascular Exam: Tachycardia, REGULAR RHYTHM, +S1, +S2 - GI/Abdominal Exam GI & Abdominal Exam: Soft, positive bowel sounds; absent: Distended, Firm, Guarding, Rigid, Tenderness, Rebound Additional comments: - Extremities Exam Extremities Exam: Normal Capillary Refill. absent: Calf Tenderness, Pedal Edema - Back Exam Back Exam: absent: CVA tenderness (L), CVA tenderness (R) - Neurological Exam Neurological Exam: Awake, Oriented x3, answering questions appropriately - Psychiatric Exam Psychiatric exam: Normal Affect - Skin Skin Exam: Dry, Normal Color, Warm Assessment and Plan - Assessment and Plan (Free Text) Assessment: 47 with PMH of DM 2, Hx H. pylori PUD (unknown whether triple therapy), and questionable Xanax abuse (per pharmacy record) presented at [facility] on 04/28 for intractable vomiting, NBNB diarrhea, and epigastic abdominal pain radiating throughout her abdomen. She denies any recent travel, sick contacts. On admission, pt had pin-point pupils with lethargy. UDS (+) cannabinoid. Negative benzo. Pt has a mid-line placement for difficult vascular access. Her GI symptoms resolved on flagyl PO. CT abdomen and pelvis (04/26) showed an incidental finding of a 1.4 cm lesion on R bladder wall and a renal cyst. Pt underwent cystoscopy with transurethral resection of bladder tumor on 04/29. POD #0: After procedure, patient wanted to leave and became violent. Maury rey was called. POD #1: Patient mentation swiftly fluctuated, from AAOx1 to AAOx3. Delirium suspected. Septic work up initiated. Pt attempted to elope with mid-line in place, unsuccessful. Code rey x 3. WBC 12.5. Tmax 99.9. valle removed. POD #2: Pt became lethargic. Valle was placed, 300cc dark casie urine drained. WBC 18. Persistent sinus tachycardia was noticed. CT abdomen/pelvis with PO contrast showed (1) ground glass bilateral pulmonary opacity, vascular congestion vs infection. (2) Phlegmon/abscess at extraperiotoneal R pelvic side wall. Moderate pelvic fluid and extensive inflammatory stranding. Extensive gas at extraperitoneal space and retroperotpneal space in psos. Upgraded ABX. POD #3: Overnight, patient was afebrile, though morning labs show a leukocytosis of 13,500 (no differential). Procalcitonin on 9 was 0.08. BUN/Cr were 13/0.7.Patient is alert and oriented to person and place. Walking, talking , not delirious but paranoid about her stay in the hospital and what is going on at home. Patient admits to fear of being committed. 5 mg of PO Haldol and 1 mg of PO Ativan administered for paranoid behavior, early signs of agitation at approximately 09:30 Patient's midline is out of right arm, there is swelling at the site of insertion. 1 maury alejandro called for agitation at this point in time. Ziprasidone BID added by psychiatry. Plan: Following the surgical procedure the patient had abrupt mentation changes with leukocytosis and sinus tachycardia likely due to sepsis secondary to extraperitoneal inflammation s/p TURB. Dr. Reynoso called and instructed: repeat CT abdomen and pelvis today. Trend fever curve, WBC, and continue monitor clinical response. Sepsis, likely from extraperitoneal abscess. R/O other infection. Unlikely catheter-related UTI. Unlikely gastroenteritits Patient's tachycardia has resolved - ID on board- appreciate recs, consider switching to PO medications after today pending no worsening in clinical course - Flagyl PO (day 7), Linezolid (day 3), Meropenem (day 3) - Blood culture (04/30, 05/01) = negative x 2 day - urine culture (04/30) = negative - U/A neg UTI - FTA-ABS and HIV-Ag/Ab pending - Procalcitonin 0.08, RPR negative Persistent sinus tachycardia, resolved as of 05/02 - EKG (05/01): Sinus 109. no ST/TW changes. QTc 474 - LE b/l U/S to showed no DVT. Thereby unlikely PE. Extraperitoneal inflammation with possible abscess - Surgery: Unlikely intra-abdominal organ perforation. No surgery needed. - IR consulted for possible drainage - CT of abdomen and pelvis on 05/03- Slight increase in extent of extraperitoneal gas along the right lateral pelvic side wall with gas extending towards and possibly into the right lateral bladder wall. Bladder mass identified at this level on CT of 04/26/2017 cannot be appreciated in the absence of bladder distention. Valle catheter noted. Intraluminal gas noted within the bladder. 2 cm left upper pole renal mass should be further evaluated with ultrasound examination. Thickened bladder wall diffusely with perivesical stranding suggestive of acute cystitis. Please correlate with urinalysis.. Patchy opacity in right lower lobe may reflect pneumonia or atelectasis. Only partially included this examination. Delirium, resolved r/o medical etiology Agitation likely secondary to underlying affective disorder that is not optimally medicated yet Failed Elopement attempt Questionable xanax abuse and withdrawal - seizure precaution - on 1:1 - As of 05/02/17, per psych: no capacity to leave AMA. No psych clearance to discharge home. Will discuss with psych for patient discharge plan. - Ativan 0.5mg IV q6 CHRISTY - Per Dr. Pina, Give ativan 1 and haldol 5 PO together PRN. Wait up to 1- 2 hours for response. This cocktail was tried; however, patient's agitation grew and Ziprasidone BID was added. - Head CT reviewed- No intracranial mass, hemorrhage or evidence of acute infarct. - TSH normal Bladder wall mass, s/p TURB Renal Cyst - Repeat CT A/P impression: Extensive foci of gas re-identified within the extraperitoneal space, along the right pelvic sidewall, and the retroperitoneal space deep to the psoas muscle. Small pelvic fluid. Mild inflammatory stranding with in the pelvis. Fluid and stranding have decreased slightly since prior study. The urinary bladder appears thick walled and decompressed with a Valle catheter present. Previously seen urinary bladder mass cannot be adequately assessed on the current examination. Air is seen within the urinary bladder. Focus of there is also noted at the level the right urinary bladder wall. Evidence of phlegmon at the level the right pelvic sidewall. Discrete abscess is not appreciated. 1.3 cm left upper pole renal mass is not adequately visualized on the current study. Prior imaging revealed cyst in this region. Recommend renal ultrasound for further evaluation/characterization when indicated. Hepatomegaly. - Cystoscopy (04/29): 2.5 cm papillary bladder tumor on R superior lateral wall, no satellite lesions - F/u with Dr. Reynoso outpatient, keep valle in place for a total of 10 days, dark casie urine with red tinge noted in the valle container - Pending pathology report Right Lower Lobe Consolidation, details- pneumonia vs atelecatsis - patient already on meropenem and linezolid - encourage ISS use Gastroenteritis Intractable vomiting and abd pain - resolved details- CT abd (04/28) Sigmoid diverticulosis without evidence of diverticulitis. Diabetes Mellitis, HgbA1C is 10 - hold home med - Levemir 10 HS, ISSS-high ACHS, accucheck ACHS HTN - started amlodipine 5 qd, lisinopril 10 qd. PRN hydralazine - find secondary causes- renal artery duplex reviewed- 1. The main renal arteries are fairly well visualized. 2. No sonographically significant stenosis is identified. 3. The kidneys are normal and symmetric in size. There are no solid renal masses, abnormal calcifications or hydronephrosis noted, TSH- 0.96 noted Tobacco abuse - nicoderm patch, 21 mg - residential child care counselor smoking cessation Pvx: heparin; protonix FENA: NS(+10meq K)@100. HHD+carb const. R arm Midline Disposition Planning - Not yet - In-house psychiatry evaluation once ispatient's medically cleared, i.e. WBC less than 10,[address] A/P shows resolution of pathologic process. Then, [facility] screening eval as needed after medically cleared Consult: ID = Dr. Dahl Urol = Dr. Schwartz IR = Dr. Smart Psych = Dr. Romo Surgery = Dr. Manning S/R/D/w Dr. Peguero
[2017-05-03 07:47] LABS: ALKALINE PHOSPHATASE 89 U/L (38-126); ALT/SGPT 34 U/L (7-56); AST/SGOT 22 U/L (14-36); BILIRUBIN,TOTAL 0.3 mg/dL (0.2-1.3); BLOOD UREA NITROGEN 7 mg/dL (7-21); CALCIUM 8.4 mg/dL (8.4-10.5); CARBON DIOXIDE 26 mmol/L (21-33); CHLORIDE 108 mmol/L (98-107); GFR AFRICAN-AMERICAN > 60; GLUCOSE,RANDOM 178 mg/dL (70-110); POTASSIUM 3.9 mmol/L (3.6-5.0); SODIUM 141 mmol/L (132-148); TOTAL PROTEIN 5.8 g/dL (5.8-8.3)
[2017-05-03] MEDS: Insulin Lispro (HUMAlog) HIGH Coverage SC SCH (08:27)
--- NOTE | 2017-05-03 08:27 | CT ---
PROCEDURE: CT Abdomen and Pelvis without intravenous contrast HISTORY: Per Dr. Smart request COMPARISON: 05/02/2017 and 04/26/2017 TECHNIQUE: Without contrast.. Contrast Dose: 0 Radiation dose: Total exam DLP = 1000.82 mGy-cm. This CT exam was performed using one or more of the following dose reduction techniques: Automated exposure control, adjustment of the mA and/or kV according to patient size, and/or use of iterative reconstruction technique. FINDINGS: LOWER THORAX: Small ill-defined opacity in right lower lobe only partially included in this examination. Infiltrate versus atelectasis. The remainder of the lung bases is unremarkable. No pleural effusion. . LIVER: Unremarkable. No gross lesion or ductal dilatation. GALLBLADDER AND BILE DUCTS: Unremarkable. PANCREAS: Unremarkable. No gross lesion or ductal dilatation. SPLEEN: Unremarkable. ADRENALS: Unremarkable. No mass. KIDNEYS AND URETERS: Rounded left upper pole left renal mass approximately 26 Hounsfield units attenuation. This measures approximately 2 cm diameter. This should be correlated with ultrasound examination. No other renal mass. No renal calculus or hydronephrosis. VASCULATURE: Unremarkable. No aortic aneurysm. BOWEL: Unremarkable. No obstruction. No gross mural thickening. APPENDIX: Unremarkable. Normal appendix. PERITONEUM: Unremarkable. No free fluid. No free air. There is extraperitoneal gas along the right pelvic side wall, minimally increased in extent compared to the prior examination. There is no rajinder fluid collection to suggest abscess. This gas extends cephalad along the posteromedial aspect of the right psoas muscle. It is seen extending towards the right bladder wall where there is a small amount of gas in the bladder wall. This suggests a possible point of communication of of the significance is uncertain. LYMPH NODES: Shotty subcentimeter retroperitoneal lymph nodes. No significantly enlarged retroperitoneal or pelvic nodes. BLADDER: Bladder wall is diffusely thickened. The bladder is poorly distended. A Cervantes catheter balloon is seen within the bladder lumen. There is a small amount of gas seen within the bladder lumen, likely secondary to catheterization. The right lateral bladder wall mass seen on 04/26/2017 cannot be appreciated in the absence of distention of the urinary bladder. Diffusely thickened bladder wall with perivesical inflammatory change the suggestive of acute cystitis. Please correlate with urinalysis REPRODUCTIVE: Normal uterus. BONES: No acute fracture. Degenerative disc disease L3-4. OTHER FINDINGS: None. IMPRESSION: Slight increase in extent of extraperitoneal gas along the right lateral pelvic side wall with gas extending towards and possibly into the right lateral bladder wall. Bladder mass identified at this level on CT of 04/26/2017 cannot be appreciated in the absence of bladder distention. Cervantes catheter noted. Intraluminal gas noted within the bladder. 2 cm left upper pole renal mass should be further evaluated with ultrasound examination. Thickened bladder wall diffusely with perivesical stranding suggestive of acute cystitis. Please correlate with urinalysis.. Patchy opacity in right lower lobe may reflect pneumonia or atelectasis. Only partially included this examination.
--- NOTE | 2017-05-03 08:58 | PN ---
DATE: ADDENDUM The Cervantes catheter was placed, 300 mL of urine was obtained with no evidence of bleeding Juan Reynoso MD
[2017-05-03] MEDS: Meropenem 1g/NS 100mL IVPB 1 GM/100 ML PIGGYBACK IVPB SCH (09:51)
[2017-05-03] MEDS: Linezolid 600 mg in D5W 300 ml 600 MG/300 ML BAG IVPB SCH (09:52)
--- NOTE | 2017-05-03 11:20 | PN ---
DATE: 05/03/2017 She is afebrile. Her white count is now down to 9000. She is totally comfortable. The CAT scan that was done is basically unchanged. The air in the right retroperitoneum will get absorbed. She has no abdominal tenderness. The plan is to keep the Cervantes catheter indwelling for a total of 10 days. She was told to come to the office on 05/09 for removal of the Cervantes. Her urine cultures just showed no growth or less than 10,000 colonies. On discharge, I will discharge her on Bactrim if she has no allergies to that. If she does have any allergies to Bactrim which is sulfa, I will give her Rocephin. Juan Reynoso MD
--- NOTE | 2017-05-03 14:22 | CON ---
DATE: 05/03/2017 TIME: 12:30 p.m. HISTORY OF PRESENT ILLNESS: This is a 47-year-old patient who underwent a transurethral bladder resection by Dr. Schwartz on 04/29/2017 for bladder CA. A postprocedure CT scan demonstrated inflammatory change around the bladder and small amount of punctate air. A followup CT scan performed today demonstrates additional air in the right pelvis without an obvious increasing fluid collection. A Cervantes Catheter is present in the bladder. I had a discussion with Dr. Schwartz. The patient's white count has responded to antibiotics. She denies pain. There is no fever. At this point Dr. Schwartz would like to treat conservatively with a Cervantes catheter left in place and IV antibiotics. If pain, fever, or increasing white count develops, a repeat CT scan can be performed and percutaneous drainage performed if indicated. Unfortunately, there may be some issues with compliance. Niko Smart MD MTDD
--- NOTE | 2017-05-03 14:47 | CP.PCM.PN ---
Subjective - Date & Time of Evaluation Date of Evaluation: 05/03/17 Time of Evaluation: 11:30 - Subjective Subjective: Comfortable, afebrile. Objective - Vital Signs/Intake and Output Vital Signs (last 24 hours): Temp Pulse Resp BP Pulse Ox 98.0 F 93 H 20 124/75 97 05/02/17 07:54 05/02/17 09:21 05/02/17 07:54 05/02/17 09:21 05/02/17 07:54 Intake and Output: 05/03/17 05/03/17 06:59 18:59 Intake Total 1260 Output Total 1500 Balance -240 - Medications Medications: Current Medications Acetaminophen (Tylenol 325mg Tab) 650 mg PO Q6H PRN PRN Reason: Fever >100.4 F Last Admin: 05/01/17 17:37 Dose: 650 mg Amlodipine Besylate (Norvasc) 5 mg PO DAILY [facility] Last Admin: 05/03/17 09:54 Dose: 5 mg Heparin Sodium (Porcine) (Heparin) 5,000 units SC Q12 [facility] PRN Reason: Protocol Last Admin: 05/03/17 09:53 Dose: 5,000 units Hydralazine HCl (Apresoline) 25 mg PO Q8H PRN PRN Reason: SBP > 180 Last Admin: 04/29/17 17:52 Dose: 25 mg Linezolid (Zyvox 600mg/300ml D5w) 600 mg in 300 mls @ 200 mls/hr IVPB Q12 [facility] PRN Reason: Protocol Stop: 05/09/17 10:01 Last Admin: 05/03/17 09:52 Dose: 200 mls/hr Potassium Chloride 10 meq/ (Sodium Chloride) 1,005 mls @ 100 mls/hr IV .Q10H3M [facility] Last Admin: 05/02/17 17:10 Dose: 100 mls/hr Meropenem 1g/NS 100mL IVPB (Meropenem 1g/Ns 100ml Ivpb) 1 gm in 100 mls @ 100 mls/hr IVPB Q12 [facility] PRN Reason: Protocol Stop: 05/10/17 22:01 Last Admin: 05/03/17 09:51 Dose: 100 mls/hr Insulin Detemir (Levemir) 10 unit SC HS [facility] Last Admin: 05/02/17 22:12 Dose: 10 unit Insulin Human Lispro (Humalog High) 0 units SC ACHS [facility] PRN Reason: Protocol Last Admin: 05/03/17 08:27 Dose: 2 units Lisinopril (Zestril) 10 mg PO DAILY [facility] Last Admin: 05/03/17 09:54 Dose: 10 mg Lorazepam (Ativan) 1 mg PO TID [facility] PRN Reason: Protocol Last Admin: 05/03/17 14:27 Dose: 1 mg Lorazepam (Ativan) 0.5 mg IVP Q6 PRN; Protocol PRN Reason: agitation/anxiety Last Admin: 05/03/17 03:28 Dose: 0.5 mg Metronidazole (Flagyl) 500 mg PO Q8 [facility] Last Admin: 05/03/17 14:27 Dose: 500 mg Nicotine (Nicoderm Cq) 1 patch TD DAILY [facility] Last Admin: 05/03/17 09:55 Dose: 1 patch Ondansetron HCl (Zofran Inj) 4 mg IVP Q6 PRN PRN Reason: Nausea/Vomiting Last Admin: 04/30/17 21:11 Dose: 4 mg Pantoprazole Sodium (Protonix Ec Tab) 40 mg PO 0600 [facility] Last Admin: 05/03/17 05:31 Dose: Not Given Ziprasidone (Geodon Cap) 20 mg PO AMHS [facility] PRN Reason: Protocol Last Admin: 05/03/17 09:53 Dose: 20 mg Ziprasidone (Geodon Inj) 20 mg IM BID PRN; Protocol PRN Reason: agitaiton/psychosis Last Admin: 05/02/17 11:31 Dose: 20 mg Ziprasidone (Geodon Cap) 20 mg PO 1600 [facility] PRN Reason: Protocol - Labs Labs: 05/03/17 06:55 05/03/17 06:55 PT 11.5 Seconds (9.9-11.8) 05/01/17 10:30 INR 1.06 (0.93-1.08) 05/01/17 10:30 APTT 32.2 Seconds (23.7-30.8) H 05/01/17 10:30 - Constitutional Appears: Non-toxic, No Acute Distress - Cardiovascular Exam Cardiovascular Exam: +S1, +S2 - GI/Abdominal Exam GI & Abdominal Exam: Soft. absent: Tenderness Assessment and Plan - Assessment and Plan (Free Text) Plan: Assessment Consider retroperitoneal infection after surgery for urinary bladder wall mass ( possible perforation of bladder wall) DM history of H. pylori infection alcohol abuse Plan Continue Zyvox and Merrem - cultures have been negative; follow up further Urology recommendations will monitor clinically
--- NOTE | 2017-05-03 17:50 | PN ---
SUBJECTIVE: The patient is a 47-year-old -[place] female with no former psychiatry history. The patient has a history of cocaine abuse. The patient was admitted on the medical side status post change in mental status. The patient was found to have some lump in urinary bladder, at the same time abscess. The patient also had episodes of confusion and delirium for what this keno writer/runner was following the patient up. The patient had hypoactive delirium last week. Over the weekend, the patient became better. Yesterday, the patient was alert and oriented, please see this keno writer/runner's consultation note for more detailed information. At the same time, the patient has a tendency of trying to elope from the hospital. This is not because of the confusion or this is not because of delirium, but the patient had some cognitive limitation and the patient did not understand the treatment plan. Based on the history, the patient was seen by urology team and urology team signed off from this case, and the patient had the impression that she can be discharged and that is why she tried to elope from the hospital today at the morning time. This keno writer/runner evaluated the patient at afternoon. The patient presented to be alert and oriented, pleasant, cooperative. The patient denied being depressed, denied thoughts of killing herself. The patient denied hearing voices, denied seeing things. After detailed explanation about her potential diagnosis of abscess and about the fact that she needs to continue again on antibiotics, the patient verbalized understanding. The patient is going to stay in the hospital until she will get the clearance from the infectious disease and medical team. This keno writer/runner had prolonged conversation with the medical technologist, and if the patient will get clearance from infectious disease, the patient might be discharged home. Vital signs are stable. MEDICATIONS: Reviewed, Tylenol, Norvasc, heparin, hydralazine, Levemir, Humalog, Zyvox, lisinopril, Ativan as well as Flagyl and nicotine patch, Zofran, Protonix, potassium chloride. The patient was on Geodon, the patient got only one dose yesterday and the patient got injection of Geodon yesterday at 11:31. MENTAL STATUS EXAMINATION: The patient presented to be alert and oriented to self, time and place; seem secondary to be in good spirit. The patient has some cognitive limitation and has difficulty to process the diagnosis, but after detailed explanation, the patient seems to have understanding the diagnosis and discharge plan. Fair eye contact. Speech was overproductive, sometimes was loud, but not pressured. Mood described "I am fine, I want to go home." Thought process was concrete. Thought content: The patient denied visual, auditory or tactile hallucinations. Denies paranoid ideation. The patient denied thoughts of harming herself or others. Denies intent or plan. Insight and judgement are improving. Impulses are well controlled. IMPRESSION: Delirium is improving. The patient has multiple medical issues including abscess. Initially, the patient had some possible bladder cancer diagnosis, but after procedure, CT scan demonstrated inflammatory changes and Cervantes catheter was placed by urologist. In regards of the psychiatric issues, the patient has a history of depression and history of substance abuse of cocaine. Delirium has much improved. PLAN: This keno writer/runner could notice that the patient was improving very much, so the patient is alert and oriented, does not have aggression or agitation. The patient was compliant with the treatment. Episodes of trying to elope are related to some cognitive limitation as the patient did not understand diagnosis and did not understand the treatment plan. The patient denied thoughts of harming herself or others, denied intent or plan. After detailed explanation about treatment plan, the patient was willing to stay in the hospital up until today or tomorrow. Case was discussed with the medical team, with nurse practitioner, with the nurse and spent more than 30 minutes of managing the patient. Thank you very much for letting me participate in care of your patient. The patient pose no imminent danger to self or others. This keno writer/runner will sign off from this case. ADDENDUM: This keno writer/runner provided the patient with a followup appointment and information about outpatient clinics about [facility] as well as [facility] and [facility]. Naida Romo MD
--- NOTE | 2017-05-04 07:46 | CP.PCM.DIS ---
Provider - Provider Date of Admission: 04/28/17 14:39 Attending physician: Altaf Peguero MD Time Spent in preparation of Discharge (in minutes): 30 Diagnosis - Discharge Diagnosis (1) Intractable vomiting Status: Acute Priority: Medium (2) Lesion of bladder Status: Acute Priority: High (3) Perforation of bladder during operative procedure Status: Acute Priority: High (4) Diabetes Status: Acute Priority: High (5) Hypertension Status: Acute Priority: Medium Hospital Course - Lab Results Lab Results: Micro Results 04/30/17 14:00 Blood-Venous Blood Culture - Preliminary NO GROWTH AFTER 3 DAYS 04/30/17 13:30 Blood-Venous Blood Culture - Preliminary NO GROWTH AFTER 3 DAYS 05/01/17 08:20 Blood-Venous Blood Culture - Preliminary NO GROWTH AFTER 48 HOURS 05/01/17 08:00 Blood-Venous Blood Culture - Preliminary NO GROWTH AFTER 48 HOURS 04/30/17 15:30 Urine Urine Culture - Final <10,000 CFU/ML. MULTIPLE SPECIES. PROBABLE CONTAMINATION. 05/02/17 13:00 Stool C. difficile Antigen & Toxin A,B (M - Final Most Recent Lab Values WBC 9.7 10^3/ul (4.5-11.0) D 05/03/17 06:55 RBC 3.71 10^6/uL (3.5-6.1) 05/03/17 06:55 Hgb 10.3 g/dL (12.0-16.0) L 05/03/17 06:55 Hct 31.8 % (36.0-48.0) L 05/03/17 06:55 MCV 85.7 fl (80.0-105.0) 05/03/17 06:55 MCH 27.8 pg (25.0-35.0) 05/03/17 06:55 MCHC 32.4 g/dl (31.0-37.0) 05/03/17 06:55 RDW 13.2 % (11.5-14.5) 05/03/17 06:55 Plt Count 254 10^3/uL (120.0-450.0) 05/03/17 06:55 MPV 9.7 fl (7.0-11.0) 05/03/17 06:55 Gran % 80.2 % (50.0-68.0) H 04/30/17 07:00 Lymph % (Auto) 11.2 % (22.0-35.0) L 04/30/17 07:00 [place] % (Auto) 8.0 % (1.0-6.0) H 04/30/17 07:00 Eos % (Auto) 0.5 % (1.5-5.0) L 04/30/17 07:00 Baso % (Auto) 0.1 % (0.0-3.0) 04/30/17 07:00 Gran # 10.06 (1.4-6.5) H 04/30/17 07:00 Lymph # 1.4 (1.2-3.4) 04/30/17 07:00 [place] # 1.0 (0.1-0.6) H 04/30/17 07:00 Eos # 0.1 (0.0-0.7) 04/30/17 07:00 Baso # 0.01 K/mm3 (0.0-2.0) 04/30/17 07:00 PT 11.5 Seconds (9.9-11.8) 05/01/17 10:30 INR 1.06 (0.93-1.08) 05/01/17 10:30 APTT 32.2 Seconds (23.7-30.8) H 05/01/17 10:30 D-Dimer, Quantitative 0.96 mg/L FEU (0-0.50) H 05/01/17 10:30 pO2 63 mm/Hg (30-55) H 05/01/17 08:20 VBG pH 7.46 (7.32-7.43) H 05/01/17 08:20 VBG pCO2 40.0 (40-60) 05/01/17 08:20 VBG HCO3 28.4 mmol/l (21-28) H 05/01/17 08:20 VBG Total CO2 29.6 mmol.L (22-28) H 05/01/17 08:20 VBG O2 Sat (Calc) 94.9 % (40-65) H 05/01/17 08:20 VBG Base Excess 4.2 mmol/L (0.0-2.0) H 05/01/17 08:20 VBG Potassium 3.9 mmol/L (3.6-5.2) 05/01/17 08:20 Sodium 131.0 mmol/L (132-148) L 05/01/17 08:20 Chloride 96.0 mmol/L (98-107) L 05/01/17 08:20 Glucose 301 mg/dl (65-105) H 05/01/17 08:20 Lactate 1.0 mmol/L (0.7-2.1) 05/01/17 08:20 FiO2 21.0 % 05/01/17 08:20 Sodium 141 mmol/L (132-148) 05/03/17 06:55 Potassium 3.9 mmol/L (3.6-5.0) 05/03/17 06:55 Chloride 108 mmol/L (98-107) H 05/03/17 06:55 Carbon Dioxide 26 mmol/L (21-33) 05/03/17 06:55 Anion Gap 11 (10-20) 05/03/17 06:55 BUN 7 mg/dL (7-21) 05/03/17 06:55 Creatinine 0.6 mg/dL (0.5-1.4) 05/03/17 06:55 Est GFR ( Amer) > 60 05/03/17 06:55 Est GFR (Non-Af Amer) > 60 05/03/17 06:55 POC Glucose (mg/dL) 195 mg/dL (65-110) H 05/03/17 07:15 Random Glucose 178 mg/dL (70-110) H 05/03/17 06:55 Hemoglobin A1c 10.0 % (4.2-6.5) H 04/30/17 09:29 Calcium 8.4 mg/dL (8.4-10.5) 05/03/17 06:55 Total Bilirubin 0.3 mg/dL (0.2-1.3) 05/03/17 06:55 AST 22 U/L (14-36) 05/03/17 06:55 ALT 34 U/L (7-56) 05/03/17 06:55 Alkaline Phosphatase 89 U/L (38-126) 05/03/17 06:55 Lactate Dehydrogenase 597 U/L (333-699) 04/27/17 06:00 Total Creatine Kinase 151 U/L (35-230) 04/27/17 06:00 Troponin I < 0.01 ng/mL 04/27/17 06:00 Total Protein 5.8 g/dL (5.8-8.3) 05/03/17 06:55 Albumin 3.0 g/dL (3.0-4.8) 05/03/17 06:55 Globulin 2.9 gm/dL 05/03/17 06:55 Albumin/Globulin Ratio 1.0 (1.1-1.8) L 05/03/17 06:55 Amylase 79 U/L (35-125) 04/26/17 15:25 Lipase 205 U/L (23-300) 04/26/17 15:25 Procalcitonin 0.08 NG/ML (0.19-0.49) L 05/01/17 09:39 TSH 3rd Generation 0.96 mIU/mL (0.46-4.68) 04/29/17 06:45 Venous Blood Potassium 3.9 mmol/L (3.6-5.2) 05/01/17 08:20 Urine Color Yellow (YELLOW) 05/01/17 09:23 Urine Appearance Clear (CLEAR) 05/01/17 09:23 Urine pH 5.5 (4.7-8.0) 05/01/17 09:23 Ur Specific [place] <= 1.005 (1.005-1.035) 05/01/17 09:23 Urine Protein 30 mg/dL (<30 mg/dL) H 05/01/17 09:23 Urine Glucose (UA) >=1000 mg/dL (NEGATIVE) 05/01/17 09:23 Urine Ketones Negative mg/dL (NEGATIVE) 05/01/17 09:23 Urine Blood Moderate (NEGATIVE) H 05/01/17 09:23 Urine Nitrate Negative (NEGATIVE) 05/01/17 09:23 Urine Bilirubin Negative (NEGATIVE) 05/01/17 09:23 Urine Urobilinogen 0.2 E.U./dL (<1 E.U./dL) 05/01/17 09:23 Ur Leukocyte Esterase Negative Claudine/uL (NEGATIVE) 05/01/17 09:23 Urine RBC 25 - 30 /hpf (0-2) 05/01/17 09:23 Urine WBC 2 - 5 /hpf (0-6) 05/01/17 09:23 Ur Epithelial Cells 6 - 8 /hpf (0-5) 05/01/17 09:23 Urine Bacteria Rare (NEG) 05/01/17 09:23 Urine HCG, Qual Negative (NEGATIVE) 05/01/17 09:23 Stool Occult Blood Negative (NEGATIVE) 05/02/17 13:00 Urine Opiates Screen Negative (NEGATIVE) 04/26/17 16:15 Urine Methadone Screen Negative (NEGATIVE) 04/26/17 16:15 Ur Barbiturates Screen Negative (NEGATIVE) 04/26/17 16:15 Ur Phencyclidine Scrn Negative (NEGATIVE) 04/26/17 16:15 Ur Amphetamines Screen Negative (NEGATIVE) 04/26/17 16:15 U Benzodiazepines Scrn Negative (NEGATIVE) 04/26/17 16:15 U Oth Cocaine Metabols Negative (NEGATIVE) 04/26/17 16:15 U Cannabinoids Screen Positive (NEGATIVE) H 04/26/17 16:15 Alcohol, Quantitative < 10 mg/dL (0-10) 04/27/17 14:10 RPR Nonreactive (NONREACTIVE) 05/01/17 09:39 T.pallidum Ab (FTA-ABS) Nonreactive (Nonreactive) 05/01/17 09:39 HIV 1&2 Ag/Ab, 4th Gen Nonreactive (Nonreactive) 05/01/17 09:39 - Hospital Course Hospital Course: Patient is a 47 year old female with a PMHx of DM and H.pylori infections who was admitted for evaluation and treatment of intractable nausea/vomiting. On CT of the abdomen a bladder mass was found and urology was consulted. Additionally , the patient showed signs of mental illness and so psychiatry was consulted. Patient underwent a cystoscopy and TURB was performed on Sunday 04/29 which revealed a 2.5 cm papillary bladder tumor on R superior lateral wall and no satellite lesions. On POD #0: the patient wanted to leave however was determined not to have mental capacity. On POD #1 the patient's mentation swiftly fluctuated and in the setting of an elevated white count and tachycardia a septic work up initiated. Patient was placed on IVF, antibiotics, and ID was consulted. During this time multiple code cristian were called for the safety of both the patient and the staff. On POD #2 the patient's WBC elevated and she was lethargic. A repeat CT abdomen/pelvis with PO contrast showed ground glass bilateral pulmonary opacity, vascular congestion, and phlegmom at the extraperiotoneal R pelvic side wall, moderate pelvic fluid and extensive inflammatory stranding, and extensive gas at extraperitoneal space and retroperotpneal space in psos. Surgery and interventional radiology were consulted and it was determined that no surgical intervention was needed at that time. On POD #3, the patient was afebrile, and WBC count was trended down. An additional code flavia called for agitation at this point in time and Ziprasidone BID was added by psychiatry. Patient's mid line which was placed due to difficult vascular access, which was removed due to leaking around the dressing and arm swelling. On POD #4 the patient became agitated and attempted to elope. A code rey was called. Patient stated that she wanted to go home to take care of family business. Psychiatry was contacted. It was determined by psychiatry that the patient portrayed mental capacity at that time. Patient was AAO x3 and ambulating without any overt difficulty. Patient clearly expressed that she no longer wants any further examinations, tests, or treatments. She states that wants to leave against medical advise and will pursue treatment at [facility]. Patient was informed of risks of learning AMA namely a significant increase in risk for both mortality and morbidity. Complications of untreated infections and discontinued care of microperforation of the bladder were discussed with patient. Patient both understands and appreciates what she was told, however still desires to leave AMA. She was told to return to emergency department for evaluation of fever, chills, headache, dizziness, chest pain, SOB, abdominal pain, N/V, diarrhea, constipation, and/or any urinary symptoms. Discharge Exam - Head Exam Head Exam: NORMAL INSPECTION - Additional Findings Additional findings: Please see progress note from 05/03/2017 for full details Patient left AMA and refused physical examination on departure Discharge Plan - Follow Up Plan Condition: SERIOUS Disposition: AGAINST MEDICAL ADVICE
== END 2017-05-03 15:23 | disposition left against medical advice (07) | DRG 668 ==
LOC: ED 13:44 → ERH 17:49 → 5RSO 21:09 → OBSVTOIN 04-28 14:39
PROVIDERS: ADMIT Internal Medicine; ATTEND Internal Medicine
PROC: 0T7D8ZZ Dilation of Urethra, Via Natural or Artificial Opening Endoscopic (ICD-10-PCS; 2017-04-29)
PROC: 0TBB8ZZ Excision of Bladder, Via Natural or Artificial Opening Endoscopic (ICD-10-PCS; principal; 2017-04-29 12:00)
DX: C67.9 Malignant neoplasm of bladder, unspecified (principal); A41.9 Sepsis, unspecified organism; F05 Delirium due to known physiological condition; N28.1 Cyst of kidney, acquired; N99.71 Accidental puncture and laceration of a genitourinary system organ or structure during a genitourinary system procedure; I10 Essential (primary) hypertension; F32.9 Major depressive disorder, single episode, unspecified; E11.9 Type 2 diabetes mellitus without complications; N35.9 Urethral stricture, unspecified; R31.9 Hematuria, unspecified; K57.30 Diverticulosis of large intestine without perforation or abscess without bleeding; F41.9 Anxiety disorder, unspecified; F10.10 Alcohol abuse, uncomplicated; K52.9 Noninfective gastroenteritis and colitis, unspecified; F14.10 Cocaine abuse, uncomplicated; Y83.8 Other surgical procedures as the cause of abnormal reaction of the patient, or of later complication, without mention of misadventure at the time of the procedure; Z86.19 Personal history of other infectious and parasitic diseases

== ENCOUNTER 2017-06-24 09:13 | Emergency (ER) | payer MEDICARE, OTHER ==
[2017-06-24 09:23] VITALS: BMI 27.4
[2017-06-24] MEDS ORDERED: Sodium Chloride 0.9% 1,000 ML IV STA (09:35)
[2017-06-24] MEDS ORDERED: Insulin Reg-MEDIUM-Coverage IV STA ×3 (09:40→10:35)
[2017-06-24 09:43] VITALS: TEMP 98
--- NOTE | 2017-06-24 10:06 | ED PDOC ---
Arrival/HPI - General Chief Complaint: GI Problem Time Seen by Provider: 06/24/17 09:15 Historian: Patient - History of Present Illness Narrative History of Present Illness (Text): 06/24/17 10:01 47yo female with PMhx of hypertension, diabetes and bladder CA present with complaint of dizziness, nausea and vomiting x weeks. Notes that these symptoms has been ongoing for a while. she describe dizziness as spinning sensation, whenever she stands up. Notes burning abdominal pain with urination and bowel movement. she was diagnosed with papillary CA of the bladder in March here in [place] and had surgical resection. She states she signed out AMA and has been having same symptoms since she left. States that vomitius is not bloody. Denies focal weakness, headache, diarrhea, constipation, urinary frequency, hematuria, fever, chills, any other complaint. Past Medical History - Provider Review Nursing Documentation Reviewed: Yes - Infectious Disease Hx of Infectious Diseases: None - Endocrine/Metabolic Hx Diabetes Mellitus Type 2: Yes - Hematological/Oncological Hx Blood Transfusions: No Hx Blood Transfusion Reaction: No - Musculoskeletal/Rheumatological Hx Falls: No - Psychiatric Hx Substance Use: Yes - Anesthesia Hx Anesthesia: No Hx Anesthesia Reactions: No Hx Malignant Hyperthermia: No Family/Social History - Physician Review Nursing Documentation Reviewed: Yes Family/Social History: Unknown Family HX Smoking Status: Unknown If Ever Smoked Hx Alcohol Use: Yes Hx Substance Use: Yes Substance used: weed Allergies/Home Meds Allergies/Adverse Reactions: Allergies No Known Allergies Allergy (Verified 04/26/17 13:58) Review of Systems - Physician Review All systems were reviewed & negative as marked: Yes - Review of Systems Constitutional: Normal Eyes: Normal ENT: Normal Respiratory: Normal Cardiovascular: Normal Gastrointestinal: Abdominal Pain, Nausea, Vomiting. absent: Constipation, Diarrhea, Hematochezia, Hematemesis Genitourinary Female: Normal. absent: Frequency, Hematuria Musculoskeletal: Normal Skin: Normal Neurological: Dizziness. absent: Headache, Focal Weakness, Gait Changes, Speech Changes, Facial Droop Endocrine: Normal Hemo/Lymphatic: Normal Psychiatric: Normal Physical Exam Vital Signs Reviewed: Yes Vital Signs Temp Pulse Resp BP Pulse Ox 06/24/17 15:15 72 18 133/78 100 06/24/17 11:03 77 17 144/78 100 06/24/17 09:34 98.0 F 82 17 110/77 98 Temperature: Afebrile Blood Pressure: Normal Pulse: Regular Respiratory Rate: Normal Appearance: Positive for: Well-Appearing, Non-Toxic, Comfortable Pain Distress: None Mental Status: Positive for: Alert and Oriented X 3 Finger Stick Blood Glucose: 300 - Systems Exam Head: Present: Atraumatic, Normocephalic Pupils: Present: PERRL Extroacular Muscles: Present: EOMI Conjunctiva: Present: Normal Mouth: Present: Moist Mucous Membranes Neck: Present: Normal Range of Motion Respiratory/Chest: Present: Clear to Auscultation, Good Air Exchange. No: Respiratory Distress, Accessory Muscle Use Cardiovascular: Present: Regular Rate and Rhythm, Normal S1, S2. No: Murmurs Abdomen: Present: Normal Bowel Sounds, Other (Soft). No: Tenderness, Distention , Peritoneal Signs, Rebound, Guarding, McBurney's Point Tender, Rovsing's Sign Present Back: Present: Normal Inspection Upper Extremity: Present: Normal Inspection. No: Cyanosis, Edema Lower Extremity: Present: Normal Inspection. No: Edema Neurological: Present: GCS=15, CN II-XII Intact, Speech Normal, Motor Func Grossly Intact, Normal Sensory Function, Normal Cerebellar Funct, Norm Deep Tendon Reflexes, Gait Normal, Memory Normal, Normal 2Pt Descrimination, Other ( No focal neurological deficit) Skin: Present: Warm, Dry, Normal Color. No: Rashes Psychiatric: Present: Alert, Oriented x 3, Normal Insight, Normal Concentration Medical Decision Making ED Course and Treatment: 06/24/17 20:04 PT presented for stated history. She was hemodynamically stable in ED. Lab was reviewed and hyperglycemia was treated with hydration and insulin. Abdominal /Pelvic CT Mural thickening of the bladder, otherwise unremarkable. Pt was noted to tolerate sandwich and juice in ED. She was neurologically intact in ED. Ambulatory with a steady gait. Result was DW the pt. she was DC home with meclizine and pepcid. Referred to a GI. - Lab Interpretations Lab Results: 06/24/17 10:18 06/24/17 12:08 Lab Results 06/24/17 13:15: PT 11.3, INR 1.03, APTT 33.3 06/24/17 12:50: Urine Color Yellow, Urine Appearance Sl cloudy, Urine pH 6.0, Ur Specific [place] 1.025, Urine Protein 30 H, Urine Glucose (UA) 500 H, Urine Ketones Trace H, Urine Blood Small H, Urine Nitrate Negative, Urine Bilirubin Negative, Urine Urobilinogen 0.2, Ur Leukocyte Esterase Trace H, Urine RBC 2 - 5 , Urine WBC 5 - 10, Ur Epithelial Cells 10 - 12, Urine Bacteria Few 06/24/17 12:08: Sodium 138, Potassium 4.4, Chloride 99, Carbon Dioxide 30, Anion Gap 13, BUN 30 H, Creatinine 0.8, Est GFR ( Amer) > 60, Est GFR ( Non-Af Amer) > 60, Random Glucose 226 H, Calcium 9.7, Total Bilirubin 0.8, AST 27, ALT 29, Alkaline Phosphatase 129 H D, Lactate Dehydrogenase 461, Total Creatine Kinase 72, Troponin I 0.01, Total Protein 8.1, Albumin 4.4, Globulin 3.6, Albumin/Globulin Ratio 1.2, Lipase 180 06/24/17 11:47: POC Glucose (mg/dL) 229 H 06/24/17 10:18: WBC 6.5 D, RBC 4.74, Hgb 13.8 D, Hct 40.3, MCV 85.0, MCH 29.1 , MCHC 34.2, RDW 13.5, Plt Count 281, MPV 9.8, Gran % 66.2, Lymph % (Auto) 22.3 , Yancey % (Auto) 10.7 H, Eos % (Auto) 0.6 L, Baso % (Auto) 0.2, Gran # 4.33, Lymph # 1.5, Yancey # 0.7 H, Eos # 0.0, Baso # 0.01 - RAD Interpretation Radiology Orders: 06/24/17 09:37 ABD & PELVIS IV CONTRAST ONLY [CT] Stat - Medication Orders Current Medication Orders: Discontinued Medications Famotidine (Pepcid) 20 mg IVP STAT STA Stop: 06/24/17 09:36 Last Admin: 06/24/17 10:25 Dose: 20 mg IVP Administration Document 06/24/17 10:25 IT (Rec: 06/24/17 10:25 IT [id number]) Charges for Administration # of IVP Administrations 1 Sodium Chloride (Sodium Chloride 0.9%) 1,000 mls @ 1,000 mls/hr IV .Q1H STA Stop: 06/24/17 10:34 Last Admin: 06/24/17 10:15 Dose: 1,000 mls/hr eMAR Start Stop Document 06/24/17 10:15 IT (Rec: 06/24/17 10:15 IT [id number]) Intravenous Solution Start Date 06/24/17 Start Time 10:15 End Date 06/24/17 End time 11:15 Total Infusion Time 60 Insulin Human Regular (Humulin R Med) 7 units IV ONCE STA PRN Reason: Protocol Stop: 06/24/17 10:01 Last Admin: 06/24/17 10:56 Dose: 7 units eMAR Start Stop Document 06/24/17 10:56 IT (Rec: 06/24/17 10:57 IT [id number]) Intravenous Solution Start Date 06/24/17 Start Time 10:57 MAR Blood Glucose Document 06/24/17 10:56 IT (Rec: 06/24/17 10:57 IT [id number]) Blood Glucose Finger Stick Blood Glucose (70-120) 300 Insulin Human Regular (Humulin R Med) 7 units IV ONCE STA PRN Reason: Protocol Stop: 06/24/17 10:36 Last Admin: 06/24/17 10:59 Dose: Insulin Human Regular (Humulin R Med) 7 units IV ONCE STA PRN Reason: Protocol Stop: 06/24/17 09:41 Last Admin: 06/24/17 10:59 Dose: Meclizine HCl (Antivert) 25 mg PO STAT STA Stop: 06/24/17 09:39 Last Admin: 06/24/17 10:25 Dose: 25 mg Ondansetron HCl (Zofran Inj) 4 mg IVP STAT STA Stop: 06/24/17 09:36 Last Admin: 06/24/17 10:25 Dose: 4 mg IVP Administration Document 06/24/17 10:25 IT (Rec: 06/24/17 10:25 IT [id number]) Charges for Administration # of IVP Administrations 1 Disposition/Present on Arrival - Present on Arrival Any Indicators Present on Arrival: No History of DVT/PE: No History of Uncontrolled Diabetes: Yes Urinary Catheter: No History of Decub. Ulcer: No History Surgical Site Infection Following: None - Disposition Have Diagnosis and Disposition been Completed?: Yes Diagnosis: Dizziness, Diabetes, Vomiting, Abdominal pain Disposition: HOME/ ROUTINE Disposition Time: 14:55 Patient Plan: Discharge Condition: STABLE Discharge Instructions (ExitCare): Diabetes Mellitus Type 2 in Adults (ED), Dizziness (ED) Additional Instructions: Follow up with your Doctor/Accounts Payable Analyst Return to ED for any new or worsening symptoms Prescriptions: Famotidine [Pepcid] 40 mg PO DAILY #15 tab Meclizine [Meclizine*] 25 mg PO Q6 #15 tab Referrals: Gem BLOUNT,MD Jewels [Medical Doctor] - Follow up with primary Forms: [employer] (Kiswahili)
[2017-06-24 10:23] LABS: BASO # 0.01 K/mm3 (0.0-2.0); BASO % 0.2 % (0.0-3.0); EOS % 0.6 % (1.5-5.0); GRAN # 4.33 (1.4-6.5); GRAN % 66.2 % (50.0-68.0); HEMATOCRIT 40.3 % (36.0-48.0); LYMPH # 1.5 (1.2-3.4); LYMPH % 22.3 % (22.0-35.0); MEAN CORPUSCULAR HEMOGLOBIN 29.1 pg (25.0-35.0); MEAN CORPUSCULAR HGB CONC 34.2 g/dl (31.0-37.0); MEAN PLATELET VOLUME 9.8 fl (7.0-11.0); MONO # 0.7 (0.1-0.6); MONO % 10.7 % (1.0-6.0); RED CELL DISTRIBUTION WIDTH 13.5 % (11.5-14.5); WHITE BLOOD COUNT 6.5 10^3/ul (4.5-11.0)
[2017-06-24] MEDS ORDERED: Insulin Regular 1 UNITS/0.01 ML ML ONE (10:54)
[2017-06-24 11:03] VITALS: O2SAT 100
[2017-06-24 12:23] LABS: ALB/GLOB RATIO 1.2 (1.1-1.8); ALKALINE PHOSPHATASE 129 U/L (38-126); ALT/SGPT 29 U/L (7-56); AST/SGOT 27 U/L (14-36); BILIRUBIN,TOTAL 0.8 mg/dL (0.2-1.3); BLOOD UREA NITROGEN 30 mg/dL (7-21); CALCIUM 9.7 mg/dL (8.4-10.5); CARBON DIOXIDE 30 mmol/L (21-33); CHLORIDE 99 mmol/L (98-107); GFR AFRICAN-AMERICAN > 60; GLUCOSE,RANDOM 226 mg/dL (70-110); LIPASE 180 U/L (23-300); SODIUM 138 mmol/L (132-148); TOTAL PROTEIN 8.1 g/dL (5.8-8.3)
[2017-06-24 12:25] LABS: POTASSIUM 4.4 mmol/L (3.6-5.0)
[2017-06-24 12:34] LABS: TROPONIN I 0.01 ng/mL
[2017-06-24] MEDS ORDERED: Iohexol 350 MG/100 ML VIAL ONE (13:08)
[2017-06-24 13:19] LABS: URINE BILIRUBIN NEGATIVE (NEGATIVE); URINE BLOOD SMALL (NEGATIVE); URINE GLUCOSE (UA) 500 mg/dL (NEGATIVE); URINE KETONE TRACE mg/dL (NEGATIVE); URINE LEUKOCYTE ESTERASE TRACE Leu/uL (NEGATIVE); URINE PROTEIN 30 mg/dL (<30 mg/dL); URINE UROBILINOGEN 0.2 E.U./dL (<1 E.U./dL)
[2017-06-24 13:20] LABS: URINE APPEARANCE SL CLOUDY (CLEAR); URINE COLOR YELLOW (YELLOW)
[2017-06-24 13:29] LABS: INR 1.03 (0.93-1.08); PARTIAL THROMBOPLASTIN TIME 33.3 Seconds (25.1-36.5)
[2017-06-24 13:49] LABS: URINE BACTERIA FEW (NEG)
--- NOTE | 2017-06-24 14:20 | CT ---
PROCEDURE: CT Abdomen and Pelvis with contrast HISTORY: abdominal pain COMPARISON: CT dated 05/03/2017 TECHNIQUE: Contrast dose: 100 cc of Omni 350 Radiation dose: Total exam DLP = 422 mGy-cm. This CT exam was performed using one or more of the following dose reduction techniques: Automated exposure control, adjustment of the mA and/or kV according to patient size, and/or use of iterative reconstruction technique. FINDINGS: LOWER THORAX: Unremarkable. LIVER: Unremarkable. No gross lesion or ductal dilatation. GALLBLADDER AND BILE DUCTS: Unremarkable. PANCREAS: Unremarkable. No gross lesion or ductal dilatation. SPLEEN: Unremarkable. ADRENALS: Unremarkable. No mass. KIDNEYS AND URETERS: Unremarkable. No hydronephrosis. No solid mass. VASCULATURE: Unremarkable. No aortic aneurysm. BOWEL: Unremarkable. No obstruction. No gross mural thickening. APPENDIX: Normal appendix. PERITONEUM: Unremarkable. No free fluid. No free air. LYMPH NODES: Unremarkable. No enlarged lymph nodes. BLADDER: There is moderate mural thickening of the bladder. REPRODUCTIVE: Unremarkable. BONES: No acute fracture. OTHER FINDINGS: The previous study showed a gas forming infection along the right pelvic wall. There is no residual abnormality in this region IMPRESSION: Mural thickening of the bladder. The study is otherwise unremarkable
[2017-06-24 15:19] VITALS: BP 133/78; PULSE 72; RESP 18
--- NOTE | 2017-06-25 09:01 | CARD ---
APPROVED REPORT EKG Measurement Heart [id number] <Conclusion> Normal sinus rhythm Left axis deviation NSSTW changes No change
== END 2017-06-24 15:20 | disposition home or self-care (01) ==
LOC: ED 09:13
DX: E11.9 Type 2 diabetes mellitus without complications (principal); R10.9 Unspecified abdominal pain; R42 Dizziness and giddiness; R11.10 Vomiting, unspecified; I10 Essential (primary) hypertension
CPT/HCPCS: 74177; 80053; 81001; 82550; 82948; 83615; 83690; 84484; 85025; 85610; 85730; 87086; 93005; 96361; 96374; 96375; 99285; J2405; J7040; Q9967

== ENCOUNTER 2017-11-15 12:27 | Emergency (ER) | payer MEDICARE ==
[2017-11-15 12:45] VITALS: RESP 18; TEMP 98.1; BMI 25.6
[2017-11-15] MEDS ORDERED: Oxycodone/Acetaminophen 5/325 mg Tab PO STA ×2 (13:07→18:15)
--- NOTE | 2017-11-15 13:17 | ED PDOC ---
Arrival/HPI - General Chief Complaint: Trauma Time Seen by Provider: 11/15/17 13:06 Historian: Patient - History of Present Illness Narrative History of Present Illness (Text): 11/15/17 13:12 A 47 year old female presents to the emergency department complaining of left rib pain after mechanical fall 3 days ago. 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 Patient denies any other injuries, loss of consciousness, head trauma, neck pain, headache, dizziness, nausea, vomiting, diarrhea, abdominal pain, back pain, chest pain, shortness of breath or any other complaints. Time/Duration: Prior to Arrival Symptom Course: Unchanged Quality: Other Context: Tripped Past Medical History - Provider Review Nursing Documentation Reviewed: Yes - Infectious Disease Hx of Infectious Diseases: None - Endocrine/Metabolic Hx Diabetes Mellitus Type 2: Yes - Hematological/Oncological Hx Blood Transfusions: No Hx Blood Transfusion Reaction: No - Musculoskeletal/Rheumatological Hx Falls: No - Psychiatric Hx Substance Use: Yes - Anesthesia Hx Anesthesia: No Hx Anesthesia Reactions: No Hx Malignant Hyperthermia: No Family/Social History - Physician Review Nursing Documentation Reviewed: Yes Family/Social History: No Known Family HX Smoking Status: Unknown If Ever Smoked Hx Alcohol Use: Yes Hx Substance Use: Yes Substance used: weed Allergies/Home Meds Allergies/Adverse Reactions: Allergies No Known Allergies Allergy (Verified 04/26/17 13:58) Review of Systems - Physician Review All systems were reviewed & negative as marked: Yes - Review of Systems Constitutional: absent: Fevers, Night Sweats Respiratory: absent: SOB Cardiovascular: absent: Chest Pain Gastrointestinal: absent: Abdominal Pain, Diarrhea, Nausea, Vomiting Musculoskeletal: Other (left rib pain). absent: Back Pain, Neck Pain Neurological: absent: Headache, Dizziness Physical Exam Vital Signs Reviewed: Yes Vital Signs Temp Pulse Resp BP Pulse Ox 11/15/17 18:38 77 18 132/72 98 11/15/17 13:30 81 18 151/76 H 97 11/15/17 12:44 98.1 F 95 H 18 149/94 H 99 Temperature: Afebrile Blood Pressure: Hypertensive Pulse: Tachycardic Respiratory Rate: Normal Appearance: Positive for: Well-Appearing, Non-Toxic, Comfortable Pain Distress: None Mental Status: Positive for: Alert and Oriented X 3 Finger Stick Blood Glucose: 452 - Systems Exam Head: Present: Atraumatic, Normocephalic Pupils: Present: PERRL Extroacular Muscles: Present: EOMI Conjunctiva: Present: Normal Mouth: Present: Moist Mucous Membranes Neck: Present: Normal Range of Motion Respiratory/Chest: Present: Clear to Auscultation, Good Air Exchange, Tender to Palpation (Left sided bony rib tenderness to palpation). No: Respiratory Distress, Accessory Muscle Use Cardiovascular: Present: Regular Rate and Rhythm, Normal S1, S2. No: Murmurs Abdomen: Present: Normal Bowel Sounds. No: Tenderness, Distention, Peritoneal Signs Back: Present: Normal Inspection Upper Extremity: Present: Normal Inspection, Normal ROM. No: Cyanosis, Edema Lower Extremity: Present: Normal Inspection, Normal ROM. No: Edema Neurological: Present: GCS=15, CN II-XII Intact, Speech Normal Skin: Present: Warm, Dry, Normal Color. No: Rashes Psychiatric: Present: Alert, Oriented x 3, Normal Insight, Normal Concentration Medical Decision Making ED Course and Treatment: 11/15/17 13:12 Impression: A 47 year old female with left rib pain after mechanical fall Differential Diagnosis included but are not limited to: Rule out rib fracture Plan: -- Left ribs xray -- EKG -- Labs -- Urinalysis -- Percocet and IV fluids -- Reassess and disposition Progress Notes: 11/15/17 13:19 FS:[id number]. Will give fluids. Rule out electrolyte abnormality. 11/15/17 14:23 Labs reviewed, lactate elevated, normal WBC. No other SIRS criteria. Likely due to hypoglycemia. Additional fluids given. 11/15/17 14:30 EKG shows NSR at 97bpm with LAD and non-specific st changes, unchanged from prior on 06/24/17 11/15/17 14:31 11/15/17 17:28 Nondisplaced left posterior 8th and 9th rib fractures. No gross pneumothorax appreciated. Hyperglycemic with normal gap and normal ph. Normal electrolytes. Admits to non-compliance with insulin. IVF and insulin given. 11/15/17 18:07 Repeat FS:178. Made aware of xray results and given incentive spirometer. Discharged with pain medication. - Lab Interpretations Lab Results: 11/15/17 14:00 11/15/17 15:30 Lab Results 11/15/17 15:30: pO2 40, VBG pH 7.33, VBG pCO2 65.0 H, VBG HCO3 34.3 H, VBG Total CO2 36.3 H, VBG O2 Sat (Calc) 72.7 H, VBG Base Excess 6.2 H, VBG Potassium 4.2, Sodium 136.0, Chloride 95.0 L, Glucose 459 H*, Lactate 1.7, FiO2 21.0, Venous Blood Potassium 4.2 11/15/17 15:30: Alcohol, Quantitative < 10 11/15/17 15:30: Sodium 135, Chloride 94 L, Potassium 4.4, Carbon Dioxide 31, Anion Gap 15, BUN 26 H, Creatinine 1.0, Est GFR ( Amer) > 60, Est GFR ( Non-Af Amer) 59, Random Glucose 453 H* D, Calcium 10.4, Total Bilirubin 0.5, AST 26, ALT 31, Alkaline Phosphatase 120, Total Creatine Kinase 61, Troponin I 0.01, Total Protein 8.2, Albumin 4.2, Globulin 3.9, Albumin/Globulin Ratio 1.1 11/15/17 15:00: Urine Opiates Screen Negative, Urine Methadone Screen Negative, Ur Barbiturates Screen Negative, Ur Phencyclidine Scrn Negative, Ur Amphetamines Screen Negative, U Benzodiazepines Scrn Negative, U Oth Cocaine Metabols Positive H, U Cannabinoids Screen Negative 11/15/17 15:00: Urine Color Yellow, Urine Appearance Clear, Urine pH 5.5, Ur Specific [place] 1.020, Urine Protein 30 H, Urine Glucose (UA) >=1000, Urine Ketones Negative, Urine Blood Trace-intact H, Urine Nitrate Negative, Urine Bilirubin Negative, Urine Urobilinogen 0.2, Ur Leukocyte Esterase Negative, Urine RBC 2 - 5, Urine WBC 0 - 2, Ur Epithelial Cells 4 - 5, Urine Bacteria Mod 11/15/17 14:00: pO2 59 H, VBG pH 7.37, VBG pCO2 56.0, VBG HCO3 32.4 H, VBG Total CO2 34.1 H, VBG O2 Sat (Calc) 90.6 H, VBG Base Excess 5.5 H, VBG Potassium 10.9 H*, Sodium 127.0 L, Chloride 94.0 L, Glucose 531 H* D, Lactate 2.6 H, FiO2 21.0, Venous Blood Potassium 10.9 H* 03/20/18 14:00: WBC 9.5 D, RBC 5.24, Hgb 15.0, Hct 42.7, MCV 81.5 D, MCH 28.6 , MCHC 35.1, RDW 14.2, Plt Count 273, MPV 10.7, Gran % 75.1 H, Lymph % (Auto) 16.8 L, [place] % (Auto) 7.3 H, Eos % (Auto) 0.7 L, Baso % (Auto) 0.1, Gran # 7.15 H, Lymph # (Auto) 1.6, [place] # (Auto) 0.7 H, Eos # (Auto) 0.1, Baso # (Auto) 0.01 11/15/17 12:49: POC Glucose (mg/dL) 452 H* I have reviewed the lab results: Yes - RAD Interpretation Radiology Orders: 11/15/17 13:06 RIBS LEFT & PA CHEST [RAD] Stat - Medication Orders Current Medication Orders: Discontinued Medications Sodium Chloride (Sodium Chloride 0.9%) 1,000 mls @ 999 mls/hr IV .Q1H1M STA Stop: 11/15/17 14:19 Last Admin: 11/15/17 14:08 Dose: 999 mls/hr eMAR Start Stop Document 11/15/17 14:08 EQ (Rec: 11/15/17 14:08 EQ [id number]) Intravenous Solution Start Date 11/15/17 Start Time 14:08 Sodium Chloride (Sodium Chloride 0.9%) 1,000 mls @ 999 mls/hr IV .Q1H1M STA Stop: 11/15/17 15:23 Last Admin: 11/15/17 17:05 Dose: 999 mls/hr eMAR Start Stop Document 11/15/17 17:05 EQ (Rec: 11/15/17 17:05 EQ [id number]) Intravenous Solution Start Date 11/15/17 Start Time 17:05 Insulin Human Regular (Humulin R) 10 units IV STAT STA Stop: 11/15/17 16:22 Last Admin: 11/15/17 17:05 Dose: 10 units eMAR Start Stop Document 11/15/17 17:05 EQ (Rec: 11/15/17 17:05 EQ [id number]) Intravenous Solution Start Date 11/15/17 Start Time 17:05 MAR Blood Glucose Document 11/15/17 17:05 EQ (Rec: 11/15/17 17:05 EQ [id number]) Blood Glucose Finger Stick Blood Glucose (70-120) 467 Oxycodone/Acetaminophen (Percocet 5/325 Mg Tab) 1 tab PO STAT STA Stop: 11/15/17 13:08 Last Admin: 11/15/17 18:37 Dose: Oxycodone/Acetaminophen (Percocet 5/325 Mg Tab) 1 tab PO STAT STA Stop: 11/15/17 18:16 Last Admin: 11/15/17 18:37 Dose: 1 tab MAR Pain Assessment Document 11/15/17 18:37 EQ (Rec: 11/15/17 18:38 EQ [id number]) Pain Reassessment Is this a pain reassessment? No Sleep Is patient sleeping during reassessment? No Presence of Pain Presence of Pain Yes - Scribe Statement The provider has reviewed the documentation as recorded by the Dmitri Reed Provider Scribe Attestation: All medical record entries made by the Scribe were at my direction and personally dictated by me. I have reviewed the chart and agree that the record accurately reflects my personal performance of the history, physical exam, medical decision making, and the department course for this patient. I have also personally directed, reviewed, and agree with the discharge instructions and disposition. Disposition/Present on Arrival - Present on Arrival Any Indicators Present on Arrival: No History of DVT/PE: No History of Uncontrolled Diabetes: No Urinary Catheter: No History of Decub. Ulcer: No History Surgical Site Infection Following: None - Disposition Have Diagnosis and Disposition been Completed?: Yes Diagnosis: Rib fracture, Hyperglycemia Disposition: HOME/ ROUTINE Disposition Time: 18:07 Patient Plan: Discharge Condition: GOOD Discharge Instructions (ExitCare): Rib Fractures in Adults, Hyperglycemia, Adult, Rib Fracture (DC), Blood Glucose Monitoring, The ABCs of Diabetes Additional Instructions: Take percocet for rib fracture pain. Motrin for less severe pain. Use incentive spirometer every 6 hours. Follow-up with PMD within 2 days. Return to ED if condition worsens Prescriptions: oxyCODONE/Acetaminophen [Percocet 5/325 mg Tab] 1 ea PO Q6 #15 tab Referrals: Aixa Caraballo MD [Primary Care Provider] - Follow up with primary Forms: [employer] (Portuguese)
[2017-11-15] MEDS ORDERED: Sodium Chloride 0.9% 1,000 ML IV STA ×2 (13:19→14:23)
[2017-11-15 14:18] LABS: BASO # 0.01 K/mm3 (0.0-2.0); BASO % 0.1 % (0.0-3.0); EOS # 0.1 (0.0-0.7); EOS % 0.7 % (1.5-5.0); GRAN # 7.15 (1.4-6.5); GRAN % 75.1 % (50.0-68.0); LYMPH # 1.6 (1.2-3.4); LYMPH % 16.8 % (22.0-35.0); MEAN CELL VOLUME 81.5 fl (80.0-105.0); MEAN CORPUSCULAR HEMOGLOBIN 28.6 pg (25.0-35.0); MEAN CORPUSCULAR HGB CONC 35.1 g/dl (31.0-37.0); MEAN PLATELET VOLUME 10.7 fl (7.0-11.0); MONO # 0.7 (0.1-0.6); MONO % 7.3 % (1.0-6.0); RBC 5.24 10^6/uL (3.5-6.1); RED CELL DISTRIBUTION WIDTH 14.2 % (11.5-14.5); VENOUS BLOOD GAS BASE EXCESS 5.5 mmol/L (0.0-2.0); VENOUS BLOOD GAS PO2 59 mm/Hg (30-55); VENOUS BLOOD PH 7.37 (7.32-7.43); WHITE BLOOD COUNT 9.5 10^3/ul (4.5-11.0)
[2017-11-15 15:25] LABS: PH,URINE 5.5 (4.7-8.0); URINE APPEARANCE CLEAR (CLEAR); URINE BILIRUBIN NEGATIVE (NEGATIVE); URINE BLOOD TRACE-INTACT (NEGATIVE); URINE COLOR YELLOW (YELLOW); URINE GLUCOSE (UA) >=1000 mg/dL (NEGATIVE); URINE LEUKOCYTE ESTERASE NEGATIVE Leu/uL (NEGATIVE); URINE PROTEIN 30 mg/dL (<30 mg/dL); URINE UROBILINOGEN 0.2 E.U./dL (<1 E.U./dL)
[2017-11-15 15:31] LABS: URINE BACTERIA MOD (NEG); URINE WBC 0 - 2 /hpf (0-6)
[2017-11-15 15:58] LABS: BARBITURATES, UR NEGATIVE (NEGATIVE); BENZODIAZEPINES, UR NEGATIVE (NEGATIVE); OPIATES, UR NEGATIVE (NEGATIVE); PHENCYCLIDINE, UR NEGATIVE (NEGATIVE)
[2017-11-15 16:07] LABS: VENOUS BLOOD GAS BASE EXCESS 6.2 mmol/L (0.0-2.0); VENOUS BLOOD GAS PO2 40 mm/Hg (30-55); VENOUS BLOOD PH 7.33 (7.32-7.43)
[2017-11-15 16:18] LABS: ALB/GLOB RATIO 1.1 (1.1-1.8); ALBUMIN 4.2 g/dL (3.0-4.8); ALT/SGPT 31 U/L (7-56); AST/SGOT 26 U/L (14-36); BLOOD UREA NITROGEN 26 mg/dL (7-21); CALCIUM 10.4 mg/dL (8.4-10.5); GFR AFRICAN-AMERICAN > 60; GFR NON-AFRICAN AMERICAN 59
[2017-11-15] MEDS ORDERED: Insulin Regular 1 UNITS/0.01 ML ML IV STA (16:21)
[2017-11-15 16:26] LABS: TROPONIN I 0.01 ng/mL
--- NOTE | 2017-11-15 17:09 | RAD ---
PROCEDURE: Radiographs of the Chest and Left Ribs. HISTORY: rib pain after fall COMPARISON: None available. TECHNIQUE: Frontal radiograph of the chest and multiple oblique radiographs of the left ribs were obtained. FINDINGS: LEFT RIBS: Posterior left nondisplaced 8th and 9th rib fractures apparent rudimentary T12 ribs considered LUNGS: Clear. PLEURA: No gross pneumothorax or pleural fluid. CARDIOVASCULAR: Normal sized heart. No pulmonary vascular congestion. OTHER FINDINGS: Thoracic spondylosis. IMPRESSION: Nondisplaced left posterior 8th and 9th rib fractures. No gross pneumothorax appreciated. Findings called in to the ER and directly discussed with Dr. Tello On 11/15/2017 at 5:06 p.m.
[2017-11-15 18:40] VITALS: BP 132/72; PULSE 77; O2SAT 98
--- NOTE | 2017-11-16 11:33 | CARD ---
APPROVED REPORT EKG Measurement Heart [id number] <Conclusion> Normal sinus rhythm Possible Left atrial enlargement Left axis deviation Nonspecific ST abnormality Prominent P in 2,3,AVF Suggestive of Lung Disease.
== END 2017-11-15 18:45 | disposition home or self-care (01) ==
LOC: ED 12:27
DX: S22.42XA Multiple fractures of ribs, left side, initial encounter for closed fracture (principal); W01.0XXA Fall on same level from slipping, tripping and stumbling without subsequent striking against object, initial encounter; E11.65 Type 2 diabetes mellitus with hyperglycemia
CPT/HCPCS: 71101; 80053; 81001; 82550; 82803; 82948; 84484; 85025; 87040; 87086; 93005; 99285; G0480; J7040

== ENCOUNTER 2017-12-23 20:31 | Emergency (ER) | payer MEDICARE ==
[2017-12-23 20:32] VITALS: BMI 25.6
--- NOTE | 2017-12-23 21:36 | ED PDOC ---
Arrival/HPI <Asif Montiel - Last Filed: 12/24/17 00:47> - General Historian: Patient EM Caveat: Acuity of Condition - History of Present Illness Time/Duration: > month Symptom Onset: Gradual Symptom Course: Unchanged, Worsening Quality: Aching, Pressure Severity Level: 4 Activities at Onset: Rest Context: Standing, Walking <Sienna Cheng - Last Filed: 12/24/17 11:09> - General Chief Complaint: Back Pain Time Seen by Provider: 12/23/17 21:35 - History of Present Illness Narrative History of Present Illness (Text): 12/23/17 21:43 A 47 year old female presents to the emergency department complaining of bilateral leg pain and low back pain. Pt was treated for left rib fracture s/p fall 11/15/17. Patient reports that she has not been able to feel her legs especially the left one for over 3 weeks and has a hard time walking. Pt had scheduled LS MRI done today. Patient denies recent injury, loss of consciousness , fever, neck pain, headache, dizziness, nausea, vomiting, diarrhea, abdominal pain, back pain, chest pain, shortness of breath, dysuria, hematuria, or any other complaints. (Sienna Cheng) Past Medical History - Provider Review Nursing Documentation Reviewed: Yes - Travel History Have you recently traveled outside [place] w/in the past 3 mons?: No - Infectious Disease Hx of Infectious Diseases: None - Endocrine/Metabolic Hx Diabetes Mellitus Type 2: Yes - Hematological/Oncological Hx Blood Transfusions: No Hx Blood Transfusion Reaction: No - Musculoskeletal/Rheumatological Hx Falls: No - Psychiatric Hx Substance Use: Yes - Anesthesia Hx Anesthesia: No Hx Anesthesia Reactions: No Hx Malignant Hyperthermia: No <Sienna Cheng - Last Filed: 12/24/17 11:09> Family/Social History - Physician Review Nursing Documentation Reviewed: Yes Family/Social History: Unknown Family HX Smoking Status: Unknown If Ever Smoked Hx Alcohol Use: Yes Hx Substance Use: Yes Substance used: weed <Sienna Cheng - Last Filed: 12/24/17 11:09> Allergies/Home Meds <Asif Montiel - Last Filed: 12/24/17 00:47> <Sienna Cheng - Last Filed: 12/24/17 11:09> Allergies/Adverse Reactions: Allergies No Known Allergies Allergy (Verified 04/26/17 13:58) Review of Systems - Review of Systems Constitutional: Normal Eyes: Normal ENT: Normal Respiratory: Normal Cardiovascular: Normal Gastrointestinal: Normal Genitourinary Female: Normal Musculoskeletal: Back Pain, Other (leg pain) Skin: Skin Lesions (old healing lesions; right big toe) Neurological: Normal Endocrine: Normal Hemo/Lymphatic: Normal Psychiatric: Normal <ProsperSienna L - Last Filed: 12/24/17 11:09> Physical Exam Vital Signs Reviewed: Yes Temperature: Afebrile Blood Pressure: Normal Pulse: Regular Respiratory Rate: Normal Appearance: Positive for: Well-Appearing, Non-Toxic, Comfortable Pain Distress: Mild Mental Status: Positive for: Alert and Oriented X 3 Finger Stick Blood Glucose: 320 - Systems Exam Head: Present: Atraumatic, Normocephalic Pupils: Present: PERRL Extroacular Muscles: Present: EOMI Conjunctiva: Present: Normal Mouth: Present: Moist Mucous Membranes Neck: Present: Normal Range of Motion Respiratory/Chest: Present: Clear to Auscultation, Good Air Exchange. No: Respiratory Distress, Accessory Muscle Use Cardiovascular: Present: Regular Rate and Rhythm, Normal S1, S2. No: Murmurs Abdomen: Present: Normal Bowel Sounds. No: Tenderness, Distention, Peritoneal Signs Back: Present: Normal Inspection, Paraspinal Tenderness (Left>Right). No: CVA Tenderness Upper Extremity: Present: Normal Inspection. No: Cyanosis, Edema Lower Extremity: Present: Normal Inspection, CALF TENDERNESS, NORMAL PULSES, Baljeet's Sign, Tenderness (left achilles deofrmity and inability to plantarflex ) , Deformity (left achilles). No: Edema, Cyanosis, Erythema Neurological: Present: GCS=15, CN II-XII Intact, Speech Normal, Norm Deep Tendon Reflexes. No: Motor Func Grossly Intact, Normal Sensory Function, Gait Normal Skin: Present: Warm, Dry, Normal Color, Other (right hallux, plantar surface desquamated ulcer, healing). No: Rashes Psychiatric: Present: Alert, Oriented x 3, Normal Insight, Normal Concentration <ProsperRadhaoma Renee - Last Filed: 12/24/17 11:09> Vital Signs Temp Pulse Resp BP Pulse Ox 12/24/17 02:22 98.1 F 88 17 160/85 H 98 04/27/18 20:38 97.9 F 89 18 149/85 96 Medical Decision Making <Asif Montiel - Last Filed: 12/24/17 00:47> <Sienna Cheng - Last Filed: 12/24/17 11:09> ED Course and Treatment: 12/23/17 21:39 Impression A 47 year old female presents to the emergency department complaining of bilateral leg pain One exam, sensation decreased along the left LE down to the knee; active ROM limited d/t pain; mild rib tenderness on the left side s/p fracture in October 2017, Plan FS:326. Will give fluids. Labs Progress Note LE doppler negative Labs wnl; Glucose of 375 treated with Insulin 6 units sc fluids given pt resting comfortably FS 136 advised pt to follow up with PMD; get results for MRI for LS JARED wrap for left ankle and instructed on how to use crutches Pt was able to ambulate well on d/c (Sienna Cheng) - Lab Interpretations Lab Results: 12/23/17 22:10 12/23/17 22:10 Lab Results 12/24/17 01:24: POC Glucose (mg/dL) 133 H 12/24/17 00:15: Urine Color Yellow, Urine Appearance Clear, Urine pH 6.0, Ur Specific [place] 1.020, Urine Protein Trace H, Urine Glucose (UA) >=1000, Urine Ketones Negative, Urine Blood Trace-lysed H, Urine Nitrate Negative, Urine Bilirubin Negative, Urine Urobilinogen 0.2, Ur Leukocyte Esterase Trace H, Urine RBC 2 - 5, Urine WBC 1 - 3, Ur Epithelial Cells 3 - 4, Urine Bacteria Small, Urine Other Mucus 12/23/17 23:39: POC Glucose (mg/dL) 335 H 12/23/17 22:10: Sodium 139, Potassium 4.3, Chloride 102, Carbon Dioxide 29, Anion Gap 12, BUN 25 H, Creatinine 0.7, Est GFR ( Amer) > 60, Est GFR ( Non-Af Amer) > 60, Random Glucose 375 H*, Calcium 9.2, Total Bilirubin 0.2, AST 29, ALT 20, Alkaline Phosphatase 111, Total Protein 7.2, Albumin 4.0, Globulin 3.2, Albumin/Globulin Ratio 1.3 12/23/17 22:10: WBC 7.3 D, RBC 4.38, Hgb 12.4 D, Hct 37.0, MCV 84.5 D, MCH 28.3, MCHC 33.5, RDW 13.6, Plt Count 346, MPV 10.4, Gran % 51.4, Lymph % (Auto) 31.5, [place] % (Auto) 7.5 H, Eos % (Auto) 9.3 H, Baso % (Auto) 0.3, Gran # 3.75, Lymph # (Auto) 2.3, [place] # (Auto) 0.6, Eos # (Auto) 0.7, Baso # (Auto) 0.02 - RAD Interpretation Narrative RAD Interpretations (Text): 12/24/17 00:48 Negative bilateral doppler (Sienna Cheng) Radiology Orders: 12/23/17 21:39 DUPLEX LOWER EXTRM VEIN BILAT [US] Stat - Medication Orders Current Medication Orders: Discontinued Medications Sodium Chloride (Sodium Chloride 0.9%) 500 mls @ 999 mls/hr IV .Q31M STA Stop: 12/23/17 22:30 Last Admin: 12/23/17 22:17 Dose: 999 mls/hr eMAR Start Stop Document 12/23/17 22:17 RD (Rec: 12/23/17 22:17 RD [id number]) Intravenous Solution Start Date 12/23/17 Start Time 22:17 End Date 12/23/17 End time 22:47 Total Infusion Time 30 Insulin Human Regular (Humulin R) 6 units SC STAT STA Stop: 12/23/17 23:11 Last Admin: 12/23/17 23:40 Dose: 6 units MAR Blood Glucose Document 12/23/17 23:40 IT (Rec: 12/23/17 23:40 IT [id number]) Blood Glucose Finger Stick Blood Glucose (70-120) 335 Subcutaneous Administrations Document 12/23/17 23:40 IT (Rec: 12/23/17 23:40 IT [id number]) Injection Site MAR Injection Site Right Abdomen Charges for Administration # of Subcutaneous Administrations 1 - PA / IS CONSULTANT / Resident Statement TONYA has reviewed & agrees with the documentation as recorded. TONYA has examined the patient and agrees with the treatment plan. <Asif Montiel - Last Filed: 12/24/17 00:47> Disposition/Present on Arrival <Asif Montiel - Last Filed: 12/24/17 00:47> - Present on Arrival Any Indicators Present on Arrival: Yes History of DVT/PE: No History of Uncontrolled Diabetes: No Urinary Catheter: No History of Decub. Ulcer: No History Surgical Site Infection Following: None - Disposition Have Diagnosis and Disposition been Completed?: Yes Disposition Time: 00:55 Patient Plan: Discharge <ProsperFlorenciaSienna Thelma - Last Filed: 12/24/17 11:09> - Disposition Diagnosis: Diabetic neuropathy, Lumbar radiculopathy, chronic, Achilles tendinitis, Lumbago, Hyperglycemia due to type 2 diabetes mellitus Disposition: HOME/ ROUTINE Condition: STABLE Discharge Instructions (ExitCare): Nerve Damage Caused by Diabetes, Foot Care for Diabetics, Diabetic Meal Planning , Achilles Tendinitis (ED) Additional Instructions: Palak, thank you for letting us take care of you today. Your provider was BEENA Cheng. You were treated for hyperglycemia and peripheral neuropathy. The emergency medical care you received today was directed at your acute symptoms. If you were prescribed any medication, please fill it and take as directed. It may take several days for your symptoms to resolve. Return to the Emergency Department if your symptoms worsen, do not improve, or if you have any other problems. Please see a doctor at the clinic we've suggested and get the results of your MRI.You may need Physical Therapy Remember to check your blood glucose level daily and take your insulin as recommended. Please contact your doctor or call one of the physicians/clinics you have been referred to that are listed on the Patient Visit Information form that is included in your discharge packet. Bring any paperwork you were given at discharge with you along with any medications you are taking to your follow up visit. Our treatment cannot replace ongoing medical care by a primary care provider (PCP) outside of the emergency department. Thank you for allowing the [facility] team to be part of your care today. Prescriptions: Acetaminophen [Acetaminophen Extra Strength] 500 mg PO Q6 5 Days #20 tablet Referrals: Robles Yancey, [Primary Care Provider] - Follow up with primary [facility] [Outside] - Follow up with primary Forms: [email or web address] (Pashto)
[2017-12-23] MEDS ORDERED: Sodium Chloride 0.9% 500 ML IV STA (22:00)
[2017-12-23 22:18] LABS: BASO # 0.02 K/mm3 (0.0-2.0); BASO % 0.3 % (0.0-3.0); EOS # 0.7 (0.0-0.7); EOS % 9.3 % (1.5-5.0); GRAN # 3.75 (1.4-6.5); GRAN % 51.4 % (50.0-68.0); HEMOGLOBIN 12.4 g/dL (12.0-16.0); LYMPH # 2.3 (1.2-3.4); LYMPH % 31.5 % (22.0-35.0); MEAN CELL VOLUME 84.5 fl (80.0-105.0); MEAN CORPUSCULAR HEMOGLOBIN 28.3 pg (25.0-35.0); MEAN CORPUSCULAR HGB CONC 33.5 g/dl (31.0-37.0); MEAN PLATELET VOLUME 10.4 fl (7.0-11.0); MONO # 0.6 (0.1-0.6); MONO % 7.5 % (1.0-6.0); RBC 4.38 10^6/uL (3.5-6.1); RED CELL DISTRIBUTION WIDTH 13.6 % (11.5-14.5); WHITE BLOOD COUNT 7.3 10^3/ul (4.5-11.0)
[2017-12-23 23:01] LABS: ALB/GLOB RATIO 1.3 (1.1-1.8); ALT/SGPT 20 U/L (7-56); AST/SGOT 29 U/L (14-36); BLOOD UREA NITROGEN 25 mg/dL (7-21); CALCIUM 9.2 mg/dL (8.4-10.5); GFR AFRICAN-AMERICAN > 60; GFR NON-AFRICAN AMERICAN > 60
[2017-12-23] MEDS ORDERED: Insulin Regular 1 UNITS/0.01 ML ML SC STA (23:10)
[2017-12-24 00:57] LABS: URINE BILIRUBIN NEGATIVE (NEGATIVE); URINE BLOOD TRACE-LYSED (NEGATIVE); URINE GLUCOSE (UA) >=1000 mg/dL (NEGATIVE); URINE LEUKOCYTE ESTERASE TRACE Leu/uL (NEGATIVE); URINE PROTEIN TRACE mg/dL (<30 mg/dL); URINE UROBILINOGEN 0.2 E.U./dL (<1 E.U./dL)
[2017-12-24 01:09] LABS: URINE APPEARANCE CLEAR (CLEAR); URINE COLOR YELLOW (YELLOW)
[2017-12-24 02:17] LABS: URINE BACTERIA SMALL (NEG)
[2017-12-24 02:38] VITALS: BP 160/85; PULSE 88; RESP 17; TEMP 98.1; O2SAT 98
--- NOTE | 2017-12-24 15:10 | US ---
PROCEDURE: Bilateral lower extremity venous duplex Doppler. HISTORY: left leg pain COMPARISON: None available. TECHNIQUE: Bilateral common femoral, superficial femoral, popliteal and posterior tibial veins were evaluated. Flow was assessed with color Doppler, compressibility, assessment of phasic flow and augmentation response. FINDINGS: COMMON FEMORAL VEIN: Right CFV: Unremarkable. Left CFV: Unremarkable. SUPERFICIAL FEMORAL VEIN: Right SFV: Unremarkable. Left SFV: Unremarkable. POPLITEAL VEIN: Right Popliteal: Unremarkable. Left Popliteal: Unremarkable. POSTERIOR TIBIAL VEIN: Right PTV: Unremarkable. Left PTV: Unremarkable. OTHER FINDINGS: None. IMPRESSION: No evidence of deep venous thrombosis.
== END 2017-12-24 02:22 | disposition home or self-care (01) ==
LOC: ED 20:31
DX: E11.40 Type 2 diabetes mellitus with diabetic neuropathy, unspecified (principal); E11.65 Type 2 diabetes mellitus with hyperglycemia; M54.16 Radiculopathy, lumbar region; M76.60 Achilles tendinitis, unspecified leg
CPT/HCPCS: 80053; 81001; 82948; 85025; 87086; 93970; 96372; 99283; J7040

== ENCOUNTER 2018-05-22 23:15 | Emergency (ER) | payer MEDICARE ==
[2018-05-22 23:42] VITALS: BMI 27.4
[2018-05-23 00:05] VITALS: RESP 18
[2018-05-23] MEDS ORDERED: Morphine 4 mg/ml ISec IM STA (00:26)
[2018-05-23] MEDS ORDERED: Naproxen 550 mg Tab PO STA (00:26)
--- NOTE | 2018-05-23 00:31 | ED PDOC ---
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 She reports that she f/u regularly with a pain management Dr. Whalen, who Rx her percocet 10 mg, which she ran out of. She admits taking the medication more often then the prescribed instructions. She adds that she also missed her appointment with Dr. Whalen to receive a steroid injection to her neck. Otherwise: (-) trauma, (-) injury, (+) paresthesias, (-) weakness, (-) acute bowel or bladder dysfunction, (-) urinary symptoms, (-) fever, (-) IVDU. Has history of prior back problem. PMD [facility] Past Medical History - Infectious Disease Hx of Infectious Diseases: None - Endocrine/Metabolic Hx Diabetes Mellitus Type 2: Yes - Hematological/Oncological Hx Blood Transfusions: No Hx Blood Transfusion Reaction: No - Musculoskeletal/Rheumatological Hx Falls: No - Psychiatric Hx Substance Use: Yes - Anesthesia Hx Anesthesia: No Hx Anesthesia Reactions: No Hx Malignant Hyperthermia: No Family/Social History Family/Social History: No Known Family HX Smoking Status: Unknown If Ever Smoked Hx Alcohol Use: Yes Hx Substance Use: Yes Substance used: weed Allergies/Home Meds Allergies/Adverse Reactions: Allergies No Known Allergies Allergy (Verified 05/22/18 23:42) Review of Systems - Review of Systems Constitutional: absent: Fatigue, Fevers Respiratory: absent: SOB, Cough Cardiovascular: absent: Chest Pain, Palpitations Gastrointestinal: Constipation. absent: Abdominal Pain, Diarrhea, Vomiting Genitourinary Female: absent: Dysuria, Frequency Musculoskeletal: Back Pain, Neck Pain. absent: Arthralgias, Joint Swelling Skin: absent: Rash, Pruritis, Skin Lesions Neurological: absent: Headache, Dizziness Physical Exam - Physical Exam Narrative Physical Exam (Text): 05/23/18 00:31 GENERAL APPEARANCE: Patient is awake, alert, oriented x 3, in moderate painful distress. SKIN: Warm, dry; (-) cyanosis. EYES: (-) conjunctival pallor. ENMT: Mucous membranes moist. NECK: (+) R paracervical tenderness, (-) midline tenderness, (-) stiffness, (-) lymphadenopathy. CHEST AND RESPIRATORY: (-) rales, (-) rhonchi, (-) wheezes; breath sounds equal bilaterally. HEART AND CARDIOVASCULAR: (-) irregularity; (-) murmur, (-) gallop. ABDOMEN AND GI: Soft; (-) tenderness; (-) palpable mass. BACK: (-) paravertebral tenderness, (-) spasm, (-) direct bony tenderness, (-) deformity. Straight leg raising (-) bilaterally. EXTREMITIES: (-) deformity, (-) tenderness, (+) FROM. Distal pulses good bilaterally. NEURO AND PSYCH: Mental status as above. Intact sensation bilaterally; normal strength in extension of the knees, plantar and dorsiflexion of the toes. Gait not tested, as patient states that she can not stand up. Vital Signs Pulse Resp BP Pulse Ox 05/22/18 23:42 89 18 154/80 H 98 Medical Decision Making ED Course and Treatment: 05/23/18 00:33 Plan : - morphine 4 mg IM - solumedrol 125 mg IM - naprosyn 500 mg po - valium 5 mg po [place] [employer] OFF[employer]ER aware shows patient is receiving regular Rx for endocet 10 mg, last filled on 05/03/18 for #120 tabs. It is noted in [place] [employer] that the patient has different addresses and gender, she also uses multiple pharmacies. On re-evaluation, patient is observed ambulating in the Emergency room with a normal and steady gait, in no acute distress. This was observed 10 mins shortly after being medicated. Patient advised to follow up with pmd and her pain management doctor in 1-2 days. Take medication as prescribed. - Medication Orders Current Medication Orders: Discontinued Medications Diazepam (Valium) 5 mg PO ONCE ONE PRN Reason: Protocol Stop: 05/23/18 00:27 Last Admin: 05/23/18 00:45 Dose: 5 mg Methylprednisolone (Solu-Medrol) 125 mg IM STAT STA Stop: 05/23/18 00:27 Last Admin: 05/23/18 00:45 Dose: 125 mg IM Administration Charges Document 05/23/18 00:45 RD (Rec: 05/23/18 00:45 RD [id number]) Injection Site MAR Injection Site Left Vastus Lateralis Charges for Administration # of IM Administrations 1 Morphine Sulfate (Morphine) 4 mg IM STAT STA Stop: 05/23/18 00:27 Last Admin: 05/23/18 00:42 Dose: 4 mg MAR Pain Assessment Document 05/23/18 00:42 RD (Rec: 05/23/18 00:46 RD [id number]) Pain Reassessment Is this a pain reassessment? No Sleep Is patient sleeping during reassessment? 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 Disposition/Present on Arrival - Present on Arrival Any Indicators Present on Arrival: No History of DVT/PE: No History of Uncontrolled Diabetes: No Urinary Catheter: No History of Decub. Ulcer: No History Surgical Site Infection Following: None - Disposition Have Diagnosis and Disposition been Completed?: Yes Diagnosis: Neck pain, Low back pain Disposition: HOME/ ROUTINE Disposition Time: 01:15 Patient Plan: Discharge Patient Problems: Current Active Problems Problem Status Onset Neck pain Acute Low back pain Acute Condition: STABLE Discharge Instructions (ExitCare): Low Back Pain in Adults, Neck Pain Prescriptions: Cyclobenzaprine [Cyclobenzaprine HCl] 10 mg PO TID PRN #15 tab PRN Reason: Muscle Spasm Meloxicam [Mobic] 15 mg PO DAILY #20 tab Forms: [employer] (Romansh)
[2018-05-23 01:48] VITALS: BP 144/78; PULSE 85; O2SAT 100
== END 2018-05-23 01:46 | disposition home or self-care (01) ==
LOC: ED 23:15
DX: M54.5 Low back pain (principal); M54.2 Cervicalgia
CPT/HCPCS: 96372; 99283; J2270; J2930

== ENCOUNTER 2018-06-23 12:35 | Emergency (ER) | payer MEDICARE ==
[2018-06-23 12:35] VITALS: BMI 27.4
[2018-06-23 12:58] VITALS: TEMP 98.2
[2018-06-23 13:02] VITALS: RESP 18
[2018-06-23] MEDS ORDERED: Lidocaine 5% Patch TD STA (13:30)
--- NOTE | 2018-06-23 13:38 | ED PDOC ---
Arrival/HPI - General Chief Complaint: Lower Extremity Problem/Injury Time Seen by Provider: 06/23/18 13:29 Historian: Patient - History of Present Illness Narrative History of Present Illness (Text): 06/23/18 13:33 A 48 year old female, whose past medical history includes DM, HTN, and anxiety, herniated disk of her back presents to the emergency department with a complaint of left sided buttock pain that radiates down her left leg, neck pain, and left shoulder pain. Patient notes that the left buttock pain has been occurring for the past 3 weeks. She notes that she has pain with movement and walking. The patient notes that she gets tingling to her toes, which is chronic. Patient notes that she fell onto her left shoulder 2 days ago. She is also complaining of left shoulder pain. The patient denies fevers, chills, headache, dizziness, sore throat, cough, chest pain, shortness of breath, dyspnea on exertion, abdominal pain, nausea, vomiting, diarrhea, urinary/bowel changes or any other complaint. Time/Duration: Other (3 weeks/ 2 days) Symptom Onset: Sudden Symptom Course: Unchanged Activities at Onset: Rest, Light Context: Home Past Medical History - Provider Review Nursing Documentation Reviewed: Yes - Infectious Disease Hx of Infectious Diseases: None - Endocrine/Metabolic Hx Diabetes Mellitus Type 2: Yes - Hematological/Oncological Hx Blood Transfusions: No Hx Blood Transfusion Reaction: No - Musculoskeletal/Rheumatological Hx Falls: No - Psychiatric Hx Substance Use: Yes - Anesthesia Hx Anesthesia: No Hx Anesthesia Reactions: No Hx Malignant Hyperthermia: No Family/Social History - Physician Review Nursing Documentation Reviewed: Yes Family/Social History: No Known Family HX Smoking Status: Unknown If Ever Smoked Hx Alcohol Use: Yes Hx Substance Use: Yes Substance used: weed Allergies/Home Meds Allergies/Adverse Reactions: Allergies No Known Allergies Allergy (Verified 05/22/18 23:42) Review of Systems - Physician Review All systems were reviewed & negative as marked: Yes - Review of Systems Constitutional: absent: Fevers ENT: absent: Sore Throat Respiratory: absent: SOB, Cough Cardiovascular: absent: Chest Pain, NARAYAN Gastrointestinal: absent: Abdominal Pain, Stool Changes, Diarrhea, Nausea, Vomiting Genitourinary Female: absent: Urine Output Changes Musculoskeletal: Neck Pain, Other (Left buttock and left shoulder pain.) Physical Exam Vital Signs Reviewed: Yes Vital Signs Temp Pulse Resp BP Pulse Ox 06/23/18 12:54 98.2 F 06/23/18 12:35 98.6 F 79 18 129/78 100 Temperature: Afebrile Blood Pressure: Normal Pulse: Regular Respiratory Rate: Normal Appearance: Positive for: Well-Appearing, Non-Toxic, Comfortable Pain Distress: None Mental Status: Positive for: Alert and Oriented X 3 - Systems Exam Head: Present: Atraumatic, Normocephalic Pupils: Present: PERRL Extroacular Muscles: Present: EOMI Conjunctiva: Present: Normal Mouth: Present: Moist Mucous Membranes Neck: Present: Normal Range of Motion, Paraspinal Tenderness (Left paraspinal tenderness) Respiratory/Chest: Present: Clear to Auscultation, Good Air Exchange. No: Respiratory Distress, Accessory Muscle Use Cardiovascular: Present: Regular Rate and Rhythm, Normal S1, S2. No: Murmurs Abdomen: No: Tenderness, Distention, Peritoneal Signs Back: Present: Pain with Leg Raise (Positive leg raise test. ) Upper Extremity: Present: Tenderness (Left shoulder tenderness), Neurovascularly Intact. No: Cyanosis, Edema Lower Extremity: Present: Tenderness (Left sciatic notch/sacral area tenderness and down lateral thigh.), Neurovascularly Intact. No: Edema Neurological: Present: GCS=15, CN II-XII Intact, Speech Normal Skin: Present: Warm, Dry, Normal Color. No: Rashes Psychiatric: Present: Alert, Oriented x 3, Normal Insight, Normal Concentration Medical Decision Making ED Course and Treatment: 06/23/18 13:42 Impression: A 48 year old female presents to the emergency department with a complaint of left shoulder, left buttock, and neck pain. Differential Diagnosis included but are not limited to: Sciatica vs. radiculopathy Plan: -- Left Shoulder X-Ray -- Flexeril, Toradol, and Lidoderm -- Reassess and disposition Prior Visits: Notes and results from previous visits were reviewed. Progress Notes: PROCEDURE: Radiographs of the Left Shoulder Dictator : Niko Martinez MD Report Date : 06/23/2018 15:25:57 IMPRESSION: Normal radiographs of the left shoulder. 06/23/18 16:39 Patient feels much better. She no longer has pain. She is walking with no ataxia. Her Xray of her shoulder is negative. She will f/u with her PMD Dr. Shine Shore. - RAD Interpretation Radiology Orders: 06/23/18 13:29 SHOULDER LEFT [RAD] Stat - Medication Orders Current Medication Orders: Discontinued Medications Cyclobenzaprine HCl (Flexeril) 10 mg PO STAT STA Stop: 06/23/18 13:31 Ketorolac Tromethamine (Toradol) 60 mg IM STAT STA Stop: 06/23/18 13:31 Lidocaine (Lidoderm) 1 ea TD STAT STA Stop: 06/23/18 13:31 - Scribe Statement The provider has reviewed the documentation as recorded by the Lucasiboliver Jauregui Provider Scribe Attestation: All medical record entries made by the Scribe were at my direction and personally dictated by me. I have reviewed the chart and agree that the record accurately reflects my personal performance of the history, physical exam, medical decision making, and the department course for this patient. I have also personally directed, reviewed, and agree with the discharge instructions and disposition. Disposition/Present on Arrival - Present on Arrival Any Indicators Present on Arrival: No History of DVT/PE: No History of Uncontrolled Diabetes: No Urinary Catheter: No History of Decub. Ulcer: No History Surgical Site Infection Following: None - Disposition Have Diagnosis and Disposition been Completed?: Yes Diagnosis: Sciatica, Shoulder contusion Disposition: HOME/ ROUTINE Disposition Time: 16:41 Patient Plan: Discharge Patient Problems: Current Active Problems Problem Status Onset Sciatica Acute Shoulder contusion Acute Condition: IMPROVED Discharge Instructions (ExitCare): Sciatica (DC) Additional Instructions: SANDOR CHEN, thank you for letting us take care of you today. Your provider was Mehul Castro DO and you were treated for Sciatica, Shoulder Contusion. The emergency medical care you received today was directed at your acute symptoms. If you were prescribed any medication, please fill it and take as directed. It may take several days for your symptoms to resolve. Return to the Emergency Department if your symptoms worsen, do not improve, or if you have any other problems. Please contact your doctor or call one of the physicians/clinics you have been referred to that are listed on the Patient Visit Information form that is included in your discharge packet. Bring any paperwork you were given at discharge with you along with any medications you are taking to your follow up visit. Our treatment cannot replace ongoing medical care by a primary care provider outside of the emergency department. Thank you for allowing the [facility] team to be part of your care today. If you had an X-Ray or CT scan: A Radiologist will review the ED reading if any change in treatment is needed we will contact you. If you had a blood, urine, or wound culture: It will take several days for the results, if any change in treatment is needed we will contact you. If you had an STI test: It will take 48 hours for the results. Please call after 1 week if you have not heard back. Prescriptions: Cyclobenzaprine [Flexeril] 5 mg PO TID PRN #20 tab PRN Reason: Muscle Spasm Ibuprofen [Motrin] 600 mg PO Q6 PRN #30 tab PRN Reason: Pain, Moderate (4-7) Lidocaine 5% [Lidoderm] 1 ea TD DAILY PRN #4 patch PRN Reason: Pain, Moderate (4-7) Referrals: Malachi Caraballo MD [Staff Provider] - Follow up with primary Forms: [employer] (Slovenian), WORK NOTE
--- NOTE | 2018-06-23 15:29 | RAD ---
Date of service: 06/23/2018 PROCEDURE: Radiographs of the Left Shoulder HISTORY: fall r/o fx COMPARISON: No prior. FINDINGS: BONES: Normal. No fracture. JOINTS: Normal. Glenohumeral and acromioclavicular joints preserved. No osteoarthritis. SOFT TISSUES: Normal. OTHER FINDINGS: None. IMPRESSION: Normal radiographs of the left shoulder.
[2018-06-23 17:24] VITALS: BP 127/71; PULSE 72; O2SAT 96
== END 2018-06-23 16:50 | disposition home or self-care (01) ==
LOC: ED 12:35
DX: M54.30 Sciatica, unspecified side (principal); S40.012A Contusion of left shoulder, initial encounter; W01.0XXA Fall on same level from slipping, tripping and stumbling without subsequent striking against object, initial encounter; Y92.9 Unspecified place or not applicable; E11.9 Type 2 diabetes mellitus without complications
CPT/HCPCS: 73030; 82948; 96372; 99284; J1885

== ENCOUNTER 2018-07-27 05:04 | Emergency (ER) | payer MEDICARE ==
[2018-07-27 05:18] VITALS: BMI 29.2
[2018-07-27 05:21] VITALS: TEMP 98.3
--- NOTE | 2018-07-27 05:23 | ED PDOC ---
Arrival/HPI - General Chief Complaint: Abnormal Skin Integrity Time Seen by Provider: 07/27/18 05:19 Historian: Patient - History of Present Illness Narrative History of Present Illness (Text): 07/27/18 05:23 Palak Singh is a 48 year old female, whose past medical history includes hypertension, diabetes, and chronic back pain, who presents to the Emergency department brought in by EMS complaining of itching. Patient states she has been experiencing diffuse itching since yesterday and notes she has been scratching frequently with no improvement. Patient denies any fever, chills, facial swelling, shortness of breath, or any other complaints. Symptom Onset: Gradual Symptom Course: Unchanged Activities at Onset: Light Context: Home Past Medical History - Provider Review Nursing Documentation Reviewed: Yes - Infectious Disease Hx of Infectious Diseases: None - Reproductive Menopause: Yes - Endocrine/Metabolic Hx Diabetes Mellitus Type 2: Yes - Hematological/Oncological Hx Blood Transfusions: No Hx Blood Transfusion Reaction: No - Musculoskeletal/Rheumatological Hx Falls: No - Psychiatric Hx Substance Use: Yes - Anesthesia Hx Anesthesia: No Hx Anesthesia Reactions: No Hx Malignant Hyperthermia: No Family/Social History - Physician Review Nursing Documentation Reviewed: Yes Family/Social History: Unknown Family HX Smoking Status: Unknown If Ever Smoked Hx Alcohol Use: Yes Hx Substance Use: Yes Substance used: weed Allergies/Home Meds Allergies/Adverse Reactions: Allergies No Known Allergies Allergy (Verified 05/22/18 23:42) Review of Systems - Physician Review All systems were reviewed & negative as marked: Yes - Review of Systems Constitutional: Normal. absent: Fevers Eyes: Normal ENT: Normal Respiratory: Normal. absent: SOB, Cough Cardiovascular: Normal. absent: Chest Pain Gastrointestinal: Normal. absent: Abdominal Pain, Diarrhea, Nausea, Vomiting Genitourinary Female: Normal. absent: Dysuria, Frequency, Hematuria, Urine Output Changes Musculoskeletal: Normal. absent: Back Pain, Neck Pain Skin: Pruritis Neurological: Normal Endocrine: Normal Hemo/Lymphatic: Normal Psychiatric: Normal Physical Exam Vital Signs Reviewed: Yes Vital Signs Temp Pulse Resp BP Pulse Ox 07/27/18 05:16 98.3 F 91 H 19 147/89 96 Temperature: Afebrile Blood Pressure: Normal Pulse: Regular Respiratory Rate: Normal Appearance: Positive for: Well-Appearing, Non-Toxic, Comfortable Pain Distress: None Mental Status: Positive for: Alert and Oriented X 3 - Systems Exam Head: Present: Atraumatic, Normocephalic Pupils: Present: PERRL Extroacular Muscles: Present: EOMI Conjunctiva: Present: Normal Mouth: Present: Moist Mucous Membranes Neck: Present: Normal Range of Motion Respiratory/Chest: Present: Clear to Auscultation, Good Air Exchange. No: Respiratory Distress, Accessory Muscle Use Cardiovascular: Present: Regular Rate and Rhythm, Normal S1, S2. No: Murmurs Abdomen: No: Tenderness, Distention, Peritoneal Signs Back: Present: Normal Inspection Upper Extremity: Present: Normal Inspection. No: Cyanosis, Edema Lower Extremity: Present: Normal Inspection. No: Edema Neurological: Present: GCS=15, CN II-XII Intact, Speech Normal Skin: Present: Warm, Dry, Rashes (Few scattered areas of urticaria), Normal Color Psychiatric: Present: Alert, Oriented x 3, Normal Insight, Normal Concentration Medical Decision Making ED Course and Treatment: 07/27/18 05:23 Impression: 48 year old female complaining of diffuse itching since yesterday. Differential Diagnosis included but are not limited to: allergic reaction vs. urticaria vs. pruritus Plan: -- Benadryl -- Reassess and disposition Progress Notes: - Scribe Statement The provider has reviewed the documentation as recorded by the Dmitri Moser Provider Scribe Attestation: All medical record entries made by the Scribe were at my direction and personally dictated by me. I have reviewed the chart and agree that the record accurately reflects my personal performance of the history, physical exam, medical decision making, and the department course for this patient. I have also personally directed, reviewed, and agree with the discharge instructions and disposition. Disposition/Present on Arrival - Present on Arrival Any Indicators Present on Arrival: No History of DVT/PE: No History of Uncontrolled Diabetes: No Urinary Catheter: No History of Decub. Ulcer: No History Surgical Site Infection Following: None - Disposition Have Diagnosis and Disposition been Completed?: Yes Diagnosis: Urticaria, Allergic reaction Disposition: HOME/ ROUTINE Disposition Time: 05:55 Patient Plan: Discharge Condition: STABLE Discharge Instructions (ExitCare): Hives (DC) Additional Instructions: Take meds as prescribed/follow up with your doctor this week Prescriptions: DiphenhydrAMINE [Benadryl] 50 mg PO Q6 PRN #24 cap PRN Reason: Itching / Pruritus Forms: [employer] (Afghan)
[2018-07-27 06:45] VITALS: BP 135/89; PULSE 85; RESP 18; O2SAT 100
== END 2018-07-27 06:20 | disposition home or self-care (01) ==
LOC: ED 05:04
DX: L50.9 Urticaria, unspecified (principal); T78.40XA Allergy, unspecified, initial encounter; X58.XXXA Exposure to other specified factors, initial encounter; E11.9 Type 2 diabetes mellitus without complications; I10 Essential (primary) hypertension

== ENCOUNTER 2018-08-09 15:30 | Emergency (ER) | payer MEDICARE ==
[2018-08-09 15:30] VITALS: BMI 29.2
[2018-08-09 16:04] VITALS: RESP 18; TEMP 99
[2018-08-09] MEDS ORDERED: Sodium Chloride 0.9% 1,000 ML IV STA ×2 (16:20→17:36)
[2018-08-09] MEDS ORDERED: Famotidine 20mg/50ml 20 MG/50 ML BAG IVPB STA (16:20)
--- NOTE | 2018-08-09 16:32 | ED PDOC ---
Arrival/HPI - General Chief Complaint: GI Problem Time Seen by Provider: 08/09/18 15:33 Historian: Patient - History of Present Illness Narrative History of Present Illness (Text): 08/09/18 16:28 48 yo female with h/o drug abuse (cocaine, percocet), HTN, DM, Anxiety, Herniated disc, presents to the ED c/o nausea, vomiting and that she feels that she's withdrawing from cocaine. She denies any fever, chills or bodyaches. She states she has some constipation. No diarrhea. No abdominal pain. No back pain. No urinary complaints. She wants to attend a detox center. She denies any suicidal ideation, homocidal ideation, delusions or hallucinations. PMD: None. Past Medical History - Provider Review Nursing Documentation Reviewed: Yes - Infectious Disease Hx of Infectious Diseases: None - Endocrine/Metabolic Hx Diabetes Mellitus Type 2: Yes - Hematological/Oncological Hx Blood Transfusions: No Hx Blood Transfusion Reaction: No - Musculoskeletal/Rheumatological Hx Falls: No - Psychiatric Hx Substance Use: Yes - Anesthesia Hx Anesthesia: No Hx Anesthesia Reactions: No Hx Malignant Hyperthermia: No Family/Social History - Physician Review Nursing Documentation Reviewed: Yes Family/Social History: No Known Family HX Smoking Status: Unknown If Ever Smoked Hx Alcohol Use: Yes Hx Substance Use: Yes Substance used: weed Allergies/Home Meds Allergies/Adverse Reactions: Allergies No Known Allergies Allergy (Verified 08/09/18 15:56) Review of Systems - Review of Systems Constitutional: Normal Eyes: Normal ENT: Normal Respiratory: Normal Cardiovascular: Normal Gastrointestinal: Constipation, Nausea, Vomiting Genitourinary Female: Normal Musculoskeletal: Normal Skin: Normal Neurological: Normal Endocrine: Normal Hemo/Lymphatic: Normal Psychiatric: Normal Physical Exam Vital Signs Reviewed: Yes Vital Signs Temp Pulse Resp BP Pulse Ox 08/09/18 16:03 99.0 F 107 H 18 136/86 99 Temperature: Afebrile Blood Pressure: Normal Pulse: Tachycardic Respiratory Rate: Normal Appearance: Positive for: Well-Appearing, Non-Toxic, Comfortable Pain Distress: None Mental Status: Positive for: Alert and Oriented X 3 Finger Stick Blood Glucose: 416 - Systems Exam Head: Present: Atraumatic, Normocephalic Pupils: Present: PERRL Extroacular Muscles: Present: EOMI Conjunctiva: Present: Normal Mouth: Present: Moist Mucous Membranes Neck: Present: Normal Range of Motion Respiratory/Chest: Present: Clear to Auscultation, Good Air Exchange. No: Respiratory Distress, Accessory Muscle Use Cardiovascular: Present: Regular Rate and Rhythm, Normal S1, S2. No: Murmurs Abdomen: No: Tenderness, Distention, Peritoneal Signs Back: Present: Normal Inspection Upper Extremity: Present: Normal Inspection. No: Cyanosis, Edema Lower Extremity: Present: Normal Inspection. No: Edema Neurological: Present: GCS=15, CN II-XII Intact, Speech Normal, Other (no tremors or tongue fasculations) Skin: Present: Warm, Dry, Normal Color. No: Rashes Psychiatric: Present: Alert, Oriented x 3, Normal Insight, Normal Concentration Medical Decision Making ED Course and Treatment: 08/09/18 16:30 48 yo female with nausea, vomiting, constipation, and feeling of withdrawal DDx: Withdrawa, Hyperglycemia r/o DKA, Dehydration Plan: -- Labs -- EKG, CXR -- IVF -- Reevaluate and disposition EKG: Sinus Tachy at [address] elevations, nonspecific ST changes. No change from 11/15/17 08/09/18 18:54 UA pending. Repeat FS improved Glucose. Will continue hydration. Signed out to Dr. Montiel to f/u UA, reevaluate FS after IVF, reevaluate and disposition. - RAD Interpretation Radiology Orders: 08/09/18 16:19 CHEST PORTABLE [RAD] Stat - Medication Orders Current Medication Orders: Famotidine (Pepcid 20mg/50ml Premix) 20 mg in 50 mls @ 100 mls/hr IVPB STAT STA Stop: 08/09/18 16:49 Sodium Chloride (Sodium Chloride 0.9%) 1,000 mls @ 999 mls/hr IV .Q1H1M STA Stop: 08/09/18 17:20 Discontinued Medications Ondansetron HCl (Zofran Inj) 4 mg IVP STAT STA Stop: 08/09/18 16:21 Disposition/Present on Arrival - Present on Arrival Any Indicators Present on Arrival: No History of DVT/PE: No History of Uncontrolled Diabetes: No Urinary Catheter: No History of Decub. Ulcer: No History Surgical Site Infection Following: None - Disposition Have Diagnosis and Disposition been Completed?: Yes Diagnosis: Hyperglycemia Disposition Time: 18:56 Condition: FAIR Forms: [employer] (Persian)
[2018-08-09 17:26] LABS: VENOUS BLOOD GAS BASE EXCESS 5.6 mmol/L (0.0-2.0); VENOUS BLOOD GAS PO2 40 mm/Hg (30-55); VENOUS BLOOD PH 7.35 (7.32-7.43)
[2018-08-09 17:40] LABS: ACETAMINOPHEN < 10.0 ug/ml (10.0-20.0); SALICYLATE < 1 mg/dL (2.0-20.0)
[2018-08-09 17:49] LABS: BASO # 0.02 K/mm3 (0.0-2.0); BASO % 0.2 % (0.0-3.0); EOS # 0.1 (0.0-0.7); EOS % 1.5 % (1.5-5.0); GRAN # 6.43 (1.4-6.5); GRAN % 72.7 % (50.0-68.0); HEMOGLOBIN 12.1 g/dL (12.0-16.0); LYMPH # 1.6 (1.2-3.4); LYMPH % 18.6 % (22.0-35.0); MEAN CELL VOLUME 83.4 fl (80.0-105.0); MEAN CORPUSCULAR HEMOGLOBIN 26.4 pg (25.0-35.0); MEAN CORPUSCULAR HGB CONC 31.6 g/dl (31.0-37.0); MEAN PLATELET VOLUME 9.7 fl (7.0-11.0); MONO # 0.6 (0.1-0.6); RBC 4.59 10^6/uL (3.5-6.1); RED CELL DISTRIBUTION WIDTH 13.3 % (11.5-14.5); WHITE BLOOD COUNT 8.8 10^3/uL (4.5-11.0)
[2018-08-09 17:56] LABS: ALB/GLOB RATIO 1.1 (1.1-1.8); ALBUMIN 4.2 g/dL (3.0-4.8); ALT/SGPT 26 U/L (7-56); AST/SGOT 25 U/L (14-36); BLOOD UREA NITROGEN 21 mg/dL (7-21); CALCIUM 9.8 mg/dL (8.4-10.5); GFR NON-AFRICAN AMERICAN > 60
[2018-08-09 18:48] LABS: URINE BILIRUBIN NEGATIVE (NEGATIVE); URINE BLOOD SMALL (NEGATIVE); URINE GLUCOSE (UA) >=1000 mg/dL (NEGATIVE); URINE LEUKOCYTE ESTERASE NEGATIVE Leu/uL (NEGATIVE); URINE PROTEIN TRACE mg/dL (<30 mg/dL); URINE UROBILINOGEN 0.2 E.U./dL (<1 E.U./dL)
[2018-08-09 18:52] LABS: URINE APPEARANCE CLEAR (CLEAR); URINE COLOR YELLOW (YELLOW)
[2018-08-09 19:07] LABS: BARBITURATES, UR NEGATIVE (NEGATIVE); BENZODIAZEPINES, UR NEGATIVE (NEGATIVE); OPIATES, UR NEGATIVE (NEGATIVE); PHENCYCLIDINE, UR NEGATIVE (NEGATIVE); URINE BACTERIA FEW (NEG)
--- NOTE | 2018-08-09 19:22 | ED PDOC ---
Physical Exam Vital Signs Temp Pulse Resp BP Pulse Ox 08/09/18 18:15 101 H 18 150/78 99 08/09/18 16:03 99.0 F 107 H 18 136/86 99 Finger Stick Blood Glucose: 416 Medical Decision Making ED Course and Treatment: 08/09/18 19:00 Case endorsed to me by Dr. Castro. Awaiting rehydration, reassessment and disposition. Patient has a history of drug abuse and diabetes.Presented with hx. of nausea and vomiting. - Lab Interpretations Lab Results: 08/09/18 17:00 08/09/18 17:00 Lab Results 08/09/18 18:36: Urine Opiates Screen Negative, Urine Methadone Screen Negative, Ur Barbiturates Screen Negative, Ur Phencyclidine Scrn Negative, Ur Amphetamines Screen Negative, U Benzodiazepines Scrn Negative, U Oth Cocaine Metabols Positive H, U Cannabinoids Screen Positive H 08/09/18 18:36: Urine Color Yellow, Urine Appearance Clear, Urine pH 6.0, Ur Specific [place] 1.010, Urine Protein Trace H, Urine Glucose (UA) >=1000, Urine Ketones Negative, Urine Blood Small H, Urine Nitrate Negative, Urine Bilirubin Negative, Urine Urobilinogen 0.2, Ur Leukocyte Esterase Negative, Urine RBC 1 - 3, Urine WBC 2 - 5, Ur Epithelial Cells 1 - 3, Urine Bacteria Few 08/09/18 17:00: pO2 40, VBG pH 7.35, VBG pCO2 60.0, VBG HCO3 33.1 H, VBG Total CO2 34.9 H, VBG O2 Sat (Calc) 75.3 H, VBG Base Excess 5.6 H, VBG Potassium 4.3, Sodium 136.0, Chloride 97.0 L, Glucose 448 H*, Lactate 2.0, FiO2 21.0, Venous Blood Potassium 4.3 08/09/18 17:00: Alcohol, Quantitative < 10 08/09/18 17:00: Salicylates < 1 L, Acetaminophen < 10.0 L 08/09/18 17:00: Sodium 136, Chloride 96 L, Potassium 4.2, Carbon Dioxide 31, Anion Gap 13, BUN 21, Creatinine 0.8, Est GFR ( Amer) > 60, Est GFR (Non- Af Amer) > 60, Random Glucose 427 H*, Calcium 9.8, Magnesium 2.1, Total Bilirubin 0.4, AST 25, ALT 26, Alkaline Phosphatase 121, Total Protein 8.2, Albumin 4.2, Globulin 3.9, Albumin/Globulin Ratio 1.1 08/09/18 17:00: WBC 8.8, RBC 4.59, Hgb 12.1, Hct 38.3, MCV 83.4, MCH 26.4, MCHC 31.6, RDW 13.3, Plt Count 420, MPV 9.7, Gran % 72.7 H, Lymph % (Auto) 18.6 L, [place] % (Auto) 7.0 H, Eos % (Auto) 1.5, Baso % (Auto) 0.2, Gran # 6.43, Lymph # (Auto) 1.6, [place] # (Auto) 0.6, Eos # (Auto) 0.1, Baso # (Auto) 0.02 - RAD Interpretation Radiology Orders: 08/09/18 16:19 CHEST PORTABLE [RAD] Stat - Medication Orders Current Medication Orders: Discontinued Medications Famotidine (Pepcid 20mg/50ml Premix) 20 mg in 50 mls @ 100 mls/hr IVPB STAT STA Stop: 08/09/18 16:49 Last Admin: 08/09/18 16:50 Dose: 100 mls/hr eMAR Start Stop Document 08/09/18 16:50 OCS (Rec: 08/09/18 16:50 [facility] [id number]) Intravenous Solution Start Date 08/09/18 Start Time 16:50 End Date 08/09/18 End time 17:20 Total Infusion Time 30 Sodium Chloride (Sodium Chloride 0.9%) 1,000 mls @ 999 mls/hr IV .Q1H1M STA Stop: 08/09/18 17:20 Last Admin: 08/09/18 16:50 Dose: 999 mls/hr eMAR Start Stop Document 08/09/18 16:50 OCS (Rec: 08/09/18 16:50 [facility] [id number]) Intravenous Solution Start Date 08/09/18 Start Time 16:50 End Date 08/09/18 End time 17:51 Total Infusion Time 61 Sodium Chloride (Sodium Chloride 0.9%) 1,000 mls @ 999 mls/hr IV .Q1H1M STA Stop: 08/09/18 18:36 Ondansetron HCl (Zofran Inj) 4 mg IVP STAT STA Stop: 08/09/18 16:21 Last Admin: 08/09/18 16:51 Dose: 4 mg IVP Administration Document 08/09/18 16:51 OCS (Rec: 08/09/18 16:51 [facility] [id number]) Charges for Administration # of IVP Administrations 1 Disposition/Present on Arrival - Present on Arrival Any Indicators Present on Arrival: No History of DVT/PE: No History of Uncontrolled Diabetes: No Urinary Catheter: No History of Decub. Ulcer: No History Surgical Site Infection Following: None - Disposition Have Diagnosis and Disposition been Completed?: Yes Diagnosis: Hyperglycemia, Gastritis Disposition: HOME/ ROUTINE Disposition Time: 22:31 Patient Plan: Discharge Patient Problems: Current Active Problems Problem Status Onset Hyperglycemia Acute Drug abuse Acute Condition: FAIR Discharge Instructions (ExitCare): Hyperglycemia, Adult (DC), Gastritis (DC) Additional Instructions: take meds as prescribed/Drink small amounts of liquids at a time/advance diet slowly as tolerated/ Follow up with your doctor this week Prescriptions: Ondansetron ODT [Zofran ODT] 4 mg PO Q6 PRN #10 odt PRN Reason: Nausea/Vomiting Forms: [employer] (Danish)
--- NOTE | 2018-08-09 20:20 | CARD ---
APPROVED REPORT Date of service: 08/09/2018 EKG Measurement Heart [id number] <Conclusion> Sinus tachycardia Left axis deviation Nonspecific ST abnormality Abnormal ECG
[2018-08-09 20:23] VITALS: BP 158/97; PULSE 98
[2018-08-10 00:18] VITALS: O2SAT 100
--- NOTE | 2018-08-10 10:37 | RAD ---
Date of service: 08/09/2018 HISTORY: detox COMPARISON: No prior. FINDINGS: LUNGS: The lungs are well inflated and clear. PLEURA: No pleural effusions or pneumothorax. CARDIOVASCULAR: The heart is normal in size. No aortic atherosclerotic calcification present. OSSEOUS STRUCTURES: Within normal limits for the patient's age. VISUALIZED UPPER ABDOMEN: Normal. OTHER FINDINGS: None. IMPRESSION: No active pulmonary disease.
== END 2018-08-10 00:17 | disposition home or self-care (01) ==
LOC: ED 15:30 → MERGE 15:30 → ED 08-10 00:17
DX: E11.65 Type 2 diabetes mellitus with hyperglycemia (principal); I10 Essential (primary) hypertension; F14.10 Cocaine abuse, uncomplicated; F41.9 Anxiety disorder, unspecified
CPT/HCPCS: 71045; 80053; 81001; 82803; 82948; 83735; 85025; 93005; 96361; 96365; 96375; 99284; G0480; J2405; J7030

== ENCOUNTER 2018-09-25 18:02 | Emergency (ER) | payer MEDICARE ==
[2018-09-25 18:02] VITALS: BMI 29.2
[2018-09-25 18:59] VITALS: BP 160/78; PULSE 85; RESP 18; TEMP 98.6; O2SAT 99
[2018-09-25] MEDS ORDERED: Albuterol-Ipratrop 3 mg / 0.5 (3 ml) UD IH STA (19:15)
--- NOTE | 2018-09-25 19:29 | ED PDOC ---
Arrival/HPI - General Chief Complaint: Cough, Cold, Congestion Time Seen by Provider: 09/25/18 18:15 Historian: Patient - History of Present Illness Narrative History of Present Illness (Text): 09/25/18 19:10 48 year old female, whose past medical history includes h/o drug abuse (cocaine, percocet), HTN, DM, Anxiety, Herniated disc, who presents to the emergency department complaining of a swollen left ear, chest pain, anxiety and states she needs to see a Psychiatrist. Patient states she has noticed a sudden change in how her left ear looks, and notes she has been trying to burst it since she hears/feels a fluid-like jelly inside her ear. Patient notes she sees "2 black soot everywhere she goes." Patient states she has not lost vision in her right eye. Patient notes onset of shortness of breath, congestion, puffy eyes and increase of anxiety whenever she goes out in daylight. Patient states she is on Xanax for the anxiety. Patient notes she goes to a Chiropractor for sciatic nerve. Patient denies any fevers, chills, abdominal pain, nausea, vomiting, diarrhea, back pain, neck pain, urinary symptoms, headache, dizziness, or any other complaint. PMD: none. Time/Duration: Prior to Arrival Symptom Onset: Sudden Symptom Course: Unchanged Activities at Onset: Light Past Medical History - Provider Review Nursing Documentation Reviewed: Yes - Infectious Disease Hx of Infectious Diseases: None - Tetanus Immunization Tetanus Immunization: Unknown - Reproductive Currently : No - Cardiac Hx Hypertension: Yes - Pulmonary Hx Asthma: Yes - Neurological Hx Seizures: No - HEENT Hx HEENT Disorder: No - Renal Hx Renal Disorder: No - Endocrine/Metabolic Hx Diabetes Mellitus Type 2: Yes - Hematological/Oncological Hx Blood Transfusions: No Hx Blood Transfusion Reaction: No - Integumentary Hx Dermatological Disorder: No - Musculoskeletal/Rheumatological Hx Falls: No - Gastrointestinal Hx Gastrointestinal Disorders: Yes Other/Comment: Prior admission for H.pylori - Genitourinary/Gynecological Hx Sexually Transmitted Diseases: No - Psychiatric Hx Anxiety: Yes Hx Depression: Yes Hx Substance Use: Yes - Surgical History Hx Section: Yes Hx Tubal Ligation: Yes - Anesthesia Hx Anesthesia: Yes Hx Anesthesia Reactions: No Hx Malignant Hyperthermia: No - Suicidal Assessment Feels Threatened In Home Enviroment: No Family/Social History - Physician Review Nursing Documentation Reviewed: Yes Family/Social History: No Known Family HX Smoking Status: Heavy Smoker > 10 Cigarettes Daily Hx Alcohol Use: Yes Hx Substance Use: Yes Substance used: COCAINE Allergies/Home Meds Allergies/Adverse Reactions: Allergies No Known Allergies Allergy (Verified 08/10/18 13:32) Home Medications: Home Meds Medication Instructions Recorded Confirmed RX: Insulin Aspart [Novolog 5 unit SC TID 05/13/17 08/26/17 Flexpen] RX: Insulin Degludec [Tresiba 5 unit SQ DAILY 05/13/17 08/26/17 Flextouch U-200] Levocetirizine Dihydrochloride 5 mg PO DAILY 08/26/17 08/26/17 [Xyzal] RX: Simvastatin 40 mg PO DAILY 08/26/17 08/26/17 Review of Systems - Physician Review All systems were reviewed & negative as marked: Yes - Review of Systems Constitutional: Normal. absent: Fevers, Night Sweats Eyes: Other (Pt notes seeing "2 black soot" everywhere she goes in right eye. Pt notes puffy eyes whenever she goes out in daylight. ). absent: Normal, Vision Changes ENT: Hearing Changes (Pt notes swelling of left ear with associated decrease in hearing ), Sinus Congestion (Pt notes congestion whenever she goes out in daylight). absent: Normal Respiratory: SOB (Pt notes shortness of breath whenever she goes out in daylight ). absent: Normal Gastrointestinal: Normal. absent: Abdominal Pain, Diarrhea, Nausea, Vomiting Genitourinary Female: Normal. absent: Urine Output Changes Musculoskeletal: Normal. absent: Back Pain, Neck Pain Neurological: Normal. absent: Headache, Dizziness Psychiatric: Anxiety (Pt notes anxiety ). absent: Normal Physical Exam Vital Signs Reviewed: Yes Vital Signs Temp Pulse Resp BP Pulse Ox 09/25/18 18:58 98.6 F 85 18 160/78 H 99 Temperature: Afebrile Blood Pressure: Hypertensive Pulse: Regular Respiratory Rate: Normal Appearance: Positive for: Non-Toxic, Other (disheveled) Pain Distress: Mild Mental Status: Positive for: Alert and Oriented X 3 - Systems Exam Head: Present: Atraumatic, Normocephalic Pupils: Present: PERRL Extroacular Muscles: Present: EOMI Conjunctiva: Present: Normal Ears: Present: Other (Swelling noted of left auricle. Slight tenderness to palpation. ). No: Normal, Erythema Mouth: Present: Moist Mucous Membranes Neck: Present: Normal Range of Motion Respiratory/Chest: Present: Clear to Auscultation, Good Air Exchange. No: Respiratory Distress, Accessory Muscle Use Cardiovascular: Present: Regular Rate and Rhythm, Normal S1, S2. No: Murmurs Abdomen: No: Tenderness, Distention, Peritoneal Signs Back: Present: Normal Inspection Upper Extremity: Present: Normal Inspection. No: Cyanosis, Edema Lower Extremity: Present: Normal Inspection. No: Edema Neurological: Present: GCS=15, CN II-XII Intact, Speech Normal Skin: Present: Warm, Dry, Normal Color. No: Rashes Psychiatric: Present: Alert, Oriented x 3, Anxious (Patient is very anxious) Medical Decision Making ED Course and Treatment: 09/25/18 19:10 Impression: 48 year old female who presents to the emergency department for swollen left ear & anxiety Differential Diagnosis included but are not limited to: --Auricular abscess --Auriclar hematoma Plan: -- EKG -- Duonebs -- Xanax --Prednisone Tab -- Wound culture and gram stain -- Reassess and disposition Prior Visits: Notes and results from previous visits were reviewed. Patient was last seen in the emergency department on 08/09/18 for nausea, vomiting and that she feels that she's withdrawing from cocaine. Pt discharged in fair condition. Progress Notes: Procedure: Incision & Drainage Performed by the emergency provider Indication: Abscess Location: Left Auricle Preparation: The area was prepped and draped in the usual sterile fashion and was cleansed with [place]. Local infiltration of Lidocaine 1% was used for anesthesia. Procedure: The most fluctuant portion of the abscess was aspirated with a 10mL syringe Approximately 4 mL of sanguineous was obtained. A compressive dressing was was applied by ca.. Post-Procedure: On exam the abscess is notably less fluctuant. The patient tolerated the procedure well, and there were no complications. Cultured: YES 09/25/181944 Patient tolerated procedure without difficulty. She feels better after nebulizer treatments and Xanax. She understands she must follow up with her PCP for her anxiolytic medications. Scripts provided. Questions answered. Patient is stable for discharge. - Medication Orders Current Medication Orders: Discontinued Medications Albuterol/Ipratropium (Duoneb 3 Mg/0.5 Mg (3 Ml) Ud) 3 ml IH STAT STA Stop: 09/25/18 19:16 Alprazolam (Xanax) 0.5 mg PO STAT STA; Protocol Stop: 09/25/18 19:17 Prednisone (Prednisone Tab) 40 mg PO STAT STA Stop: 09/25/18 19:16 - Scribe Statement The provider has reviewed the documentation as recorded by the Scribe Tawana Hurtado All medical record entries made by the Scribe were at my direction and personall y dictated by me. I have reviewed the chart and agree that the record accurately reflects my personal performance of the history, physical exam, medical decision making, and the department course for this patient. I have also personally directed, reviewed, and agree with the discharge instructions and disposition. Disposition/Present on Arrival - Present on Arrival Any Indicators Present on Arrival: No History of DVT/PE: No History of Uncontrolled Diabetes: No Urinary Catheter: No History of Decub. Ulcer: No History Surgical Site Infection Following: None - Disposition Have Diagnosis and Disposition been Completed?: Yes Diagnosis: Shortness of breath, Anxiety, Hematoma of auricle Disposition: HOME/ ROUTINE Disposition Time: 20:00 Patient Plan: Discharge Condition: IMPROVED Discharge Instructions (ExitCare): Anxiety, Adult (DC), Shortness of Breath (Dyspnea) (DC) Print Language: AUSTRALIAN Additional Instructions: All medical record entries made by the Scribe were at my direction and personally dictated by me. I have reviewed the chart and agree that the record accurately reflects my personal performance of the history, physical exam, medic al decision making, and the department course for this patient. I have also personally directed, reviewed, and agree with the discharge instructions and disposition. Please follow up with your PCP in 3-5 days Please use warm compresses for your LEFT ear to assist in healing process Please apply mupurocin twice a day Prescriptions: Alprazolam [Xanax] 0.5 mg PO PRN PRN #4 tab PRN Reason: Anxiety RX: Mupirocin 2% Ointment [Bactroban Ointment] 22 applic EXT BID #1 tube [place]: [facility] [place] [facility] [place] - Follow up with primary Agueda Matthews MD [Medical Doctor] - Follow up with primary Forms: [employer] (Upper Sorbian)
--- NOTE | 2018-09-27 12:52 | CARD ---
APPROVED REPORT Date of service: 09/25/2018 EKG Measurement Heart [id number] 128P65 [id number] <Conclusion> Normal sinus rhythm Poor R Progression V1-V4.
== END 2018-09-25 19:38 | disposition home or self-care (01) ==
LOC: ED 18:02
DX: F41.9 Anxiety disorder, unspecified (principal); R06.02 Shortness of breath; S00.432A Contusion of left ear, initial encounter; X58.XXXA Exposure to other specified factors, initial encounter; E11.9 Type 2 diabetes mellitus without complications; I10 Essential (primary) hypertension; F17.210 Nicotine dependence, cigarettes, uncomplicated

== ENCOUNTER 2018-09-27 08:53 | Emergency (ER) | payer MEDICARE ==
[2018-09-27 09:18] VITALS: BMI 32.0
[2018-09-27 09:28] VITALS: RESP 20
[2018-09-27] MEDS ORDERED: Albuterol-Ipratrop 3 mg / 0.5 (3 ml) UD IH STA (10:08)
--- NOTE | 2018-09-27 10:55 | ED PDOC ---
Arrival/HPI - General Chief Complaint: Shortness Of Breath Time Seen by Provider: 09/27/18 09:34 Historian: Patient - History of Present Illness Narrative History of Present Illness (Text): 09/27/18 10:52 48yo female with past medical history of drug abuse, Asthma, hypertension, Diabetes, Anxiety bib EMS for complaint of anxiety. Reports SOB secondary to her anxiety. States she was here 2days ago and the Pharmacist refused to fill the Xanax prescription she was given. States she was too busy yo go see her PMD. Also complaining of back pain, which is chronic for her. She denies chest pain, trauma, dizziness, diaphoresis, nausea, vomiting, abdominal pain, sick contact, cough, any other complaint. Past Medical History - Provider Review Nursing Documentation Reviewed: Yes - Infectious Disease Hx of Infectious Diseases: None - Tetanus Immunization Tetanus Immunization: Unknown - Reproductive Currently : No - Cardiac Hx Hypertension: Yes - Pulmonary Hx Respiratory Disorders: Yes Hx Asthma: Yes - Neurological Hx Neurological Disorder: No Hx Seizures: No - HEENT Hx HEENT Disorder: No - Renal Hx Renal Disorder: No - Endocrine/Metabolic Hx Endocrine Disorders: Yes Hx Diabetes Mellitus Type 2: Yes - Hematological/Oncological Hx Blood Disorders: No - Integumentary Hx Dermatological Disorder: No - Musculoskeletal/Rheumatological Hx Musculoskeletal Disorders: No - Gastrointestinal Hx Gastrointestinal Disorders: Yes Other/Comment: Prior admission for H.pylori - Genitourinary/Gynecological Hx Genitourinary Disorders: No - Psychiatric Hx Psychophysiologic Disorder: Yes Hx Anxiety: Yes Hx Depression: Yes Hx Substance Use: Yes - Surgical History Hx Section: Yes Hx Tubal Ligation: Yes - Anesthesia Hx Anesthesia: Yes Hx Anesthesia Reactions: No Hx Malignant Hyperthermia: No - Suicidal Assessment Feels Threatened In Home Enviroment: No Family/Social History - Physician Review Nursing Documentation Reviewed: Yes Family/Social History: Unknown Family HX Smoking Status: Heavy Smoker > 10 Cigarettes Daily Hx Alcohol Use: Yes Hx Substance Use: Yes Substance used: COCAINE Allergies/Home Meds Allergies/Adverse Reactions: Allergies No Known Allergies Allergy (Verified 09/27/18 09:20) Home Medications: Home Meds Medication Instructions Recorded Confirmed RX: Insulin Aspart [Novolog 5 unit SC TID 05/13/17 08/26/17 Flexpen] RX: Insulin Degludec [Tresiba 5 unit SQ DAILY 05/13/17 08/26/17 Flextouch U-200] Levocetirizine Dihydrochloride 5 mg PO DAILY 08/26/17 08/26/17 [Xyzal] RX: Simvastatin 40 mg PO DAILY 08/26/17 08/26/17 Review of Systems - Physician Review All systems were reviewed & negative as marked: Yes - Review of Systems Constitutional: Normal Eyes: Normal ENT: Normal Respiratory: SOB Cardiovascular: Normal Gastrointestinal: Normal Genitourinary Female: Normal Musculoskeletal: Normal Skin: Normal Neurological: Normal Endocrine: Normal Hemo/Lymphatic: Normal Psychiatric: Anxiety Physical Exam Vital Signs Reviewed: Yes Vital Signs Temp Pulse Resp BP Pulse Ox 09/27/18 09:28 20 90 L 09/27/18 09:18 100.2 F H 122 H 20 183/101 H 90 L Temperature: Febrile Blood Pressure: Hypertensive Pulse: Tachycardic Respiratory Rate: Normal Appearance: Positive for: Well-Appearing, Non-Toxic, Comfortable, Other (Appear anxious) Pain Distress: None Mental Status: Positive for: Alert and Oriented X 3, Lethargic (But answering questions) - Systems Exam Head: Present: Atraumatic, Normocephalic Pupils: Present: PERRL Extroacular Muscles: Present: EOMI Conjunctiva: Present: Normal Mouth: Present: Moist Mucous Membranes Neck: Present: Normal Range of Motion Respiratory/Chest: Present: Good Air Exchange, Wheezes (Mild diffuse wheeze). No: Respiratory Distress, Accessory Muscle Use, Decreased Breath Sounds, Rales, Retracting, Rhonchi, Tachypneic Cardiovascular: Present: Regular Rate and Rhythm, Normal S1, S2. No: Murmurs Abdomen: No: Tenderness, Distention, Peritoneal Signs Back: Present: Normal Inspection Upper Extremity: Present: Normal Inspection. No: Cyanosis, Edema Lower Extremity: Present: Normal Inspection. No: Edema Neurological: Present: GCS=15, CN II-XII Intact, Speech Normal Skin: Present: Warm, Dry, Normal Color. No: Rashes Psychiatric: Present: Alert, Oriented x 3, Normal Insight, Normal Concentration, Anxious Medical Decision Making ED Course and Treatment: 09/27/18 19:56 48yo female who was bib EMS for stated history. Pt appeared lethargic, but answering questions. Duoneb x3 Prednisone Xanax Tylenol On re evaluation she reports improvement, but didn't want to leave the emergency department , she is questionably malingering. she was advised to follow up with her PMD/psychiatrist for her anxiolytics. She had low temp while she was in emergency department and her chart reviewed indicates that she was seen here 2days ago and had a drained hematoma on her left pinna. No redness was noted today. She was placed on keflex for that secondary to her risk of infection. she was DC home. - Medication Orders Current Medication Orders: Discontinued Medications Acetaminophen (Tylenol 325mg Tab) 650 mg PO STAT STA Stop: 09/27/18 10:09 Last Admin: 09/27/18 10:23 Dose: 650 mg MAR Pain/Vitals Document 09/27/18 10:23 KV (Rec: 09/27/18 10:23 [facility] Pain Reassessment Is This A Pain ReAssessment? No Location Pain Location Body Site Generalized Albuterol/Ipratropium (Duoneb 3 Mg/0.5 Mg (3 Ml) Ud) 3 ml IH Q15M STA Stop: 09/27/18 10:09 Last Admin: 09/27/18 10:23 Dose: 3 ml Alprazolam (Xanax) 0.5 mg PO STAT STA; Protocol Stop: 09/27/18 10:10 Last Admin: 09/27/18 10:23 Dose: 0.5 mg Prednisone (Prednisone Tab) 60 mg PO STAT ONE Stop: 09/27/18 10:09 Last Admin: 09/27/18 10:23 Dose: 60 mg Disposition/Present on Arrival - Present on Arrival Any Indicators Present on Arrival: No History of DVT/PE: No History of Uncontrolled Diabetes: No Urinary Catheter: No History of Decub. Ulcer: No History Surgical Site Infection Following: None - Disposition Have Diagnosis and Disposition been Completed?: Yes Diagnosis: Diabetes, Anxiety, Asthma attack Disposition: HOME/ ROUTINE Disposition Time: 13:15 Patient Plan: Discharge Condition: STABLE Discharge Instructions (ExitCare): Anxiety, Adult (DC) Additional Instructions: Follow up with your doctor Return to emergency department for any new symptoms Prescriptions: RX: Albuterol HFA [Ventolin HFA 90 mcg/actuation (8 g)] 2 puff IH [id number] 1 Days #1 puff Cephalexin [Keflex] 500 mg PO TID #30 capsule Referrals: Agueda Matthews MD [Medical Doctor] - Follow up with primary Forms: [email or web address] (Irish)
[2018-09-27 11:39] VITALS: BP 151/77; PULSE 128; O2SAT 92
[2018-09-27 11:40] VITALS: TEMP 100.1
[2018-09-27] MEDS ORDERED: Insulin Regular 1 UNITS/0.01 ML ML SC STA (11:57)
--- NOTE | 2018-09-27 12:10 | CARD ---
APPROVED REPORT Date of service: 09/27/2018 EKG Measurement Heart [id number] NM 130P76 [id number] <Conclusion> Sinus tachycardia. Possible Left atrial enlargement Left axis deviation Poor R Progression in V-Leads.
== END 2018-09-27 14:15 | disposition home or self-care (01) ==
LOC: ED 08:53
DX: F41.9 Anxiety disorder, unspecified (principal); E11.9 Type 2 diabetes mellitus without complications; J45.909 Unspecified asthma, uncomplicated; I10 Essential (primary) hypertension; F17.210 Nicotine dependence, cigarettes, uncomplicated